=== PATIENT | male | born 1935 | race Caucasian/White ===

== ENCOUNTER → 2017-10-08 | Outpatient (CLI) | payer MEDICARE ==
[2017-10-08 12:26] LABS: Anion Gap 10 mmol/L; Blood Urea Nitrogen 20 mg/dL (9-20); Carbon Dioxide 28 mmol/L (22-30); Chloride 102 mmol/L (98-107); Potassium 4.5 mmol/L (3.5-5.1); Sodium 140 mmol/L (137-145)
[2017-10-08 12:46] LABS: HCT 43.4 % (39.0-53.0); HGB 13.8 gm/dL (13.0-17.5); Hypochromasia Slight; MCH 28.1 pg (25.0-35.0); MCHC 31.7 g/dL (31.0-37.0); MCV 88.4 fL (80.0-100.0); Mean Platelet Volume 8.1; Platelet Count 164 k/uL (150-450); RDW 14.6 % (11.5-15.5); WBC 7.3 k/uL (3.8-10.6)
== END | disposition home or self-care (01) ==
LOC: LABWHC1 11:32
PROVIDERS: ATTEND Internal Medicine Interventional Cardiology
DX: Z01.812 Encounter for preprocedural laboratory examination (principal); I35.0 Nonrheumatic aortic (valve) stenosis
CPT/HCPCS: 36415; 80051; 82565; 84520; 85027

== ENCOUNTER 2017-10-24 07:56 | Day surgery (SDC) | payer MEDICARE ==
[2017-10-19 09:31] VITALS: BMI 27.7
[~2017-10-24 07:56] MED LIST: ALPRAZolam 0.25 MG TAB PO PRN; ALPRAZolam 0.5 MG TAB PO PRN; ASPIRIN 325 MG TAB PO STA; NITROGLYCERIN SL TABS 0.4 MG TAB SUBLINGUAL PRN; SODIUM CHLORIDE 0.9% 1,000 ML in EMPTY BAG 1 BAG IV ONE
[2017-10-24 08:16] VITALS: PULSE 63; TEMP 97.7
[2017-10-24 08:41] LABS: INR 1.2 (<1.2); Prothrombin Time 11.4 sec (9.0-12.0)
[2017-10-24] MEDS: fentaNYL (PF) 50 MCG/ML 2 ML AMP IVP ONE ×2 (09:18→09:22)
[2017-10-24] MEDS ORDERED: SODIUM CHLORIDE 0.9% 1,000 ML IV ONE (09:18)
[2017-10-24] MEDS ORDERED: LIDOCAINE 2% INJ 20 MG/ML SQ ONE (09:21)
[2017-10-24] MEDS ORDERED: IOHEXOL 350 MG/ML 125ML BOTTLE INJ ONE (09:48)
[2017-10-24] MEDS ORDERED: RX INFO: IV CONTRAST WAS GIVEN 1 EACH MISC MISCELLANE PRN (09:54)
[2017-10-24] MEDS ORDERED: SODIUM CHLORIDE 0.9% 1,000 ML IV SCH (10:00)
--- NOTE | 2017-10-24 10:03 | P.PCN ---
Date of Procedure: 10/24/17 Preoperative Diagnosis: Severe aortic stenosis, coronary artery disease Postoperative Diagnosis: Severe aortic stenosis with a peak gradient of 56, stable coronary artery disease with noncritical stenosis in the proximal LAD of about 40% Procedure(s) Performed: Left heart catheterization with selective coronary arteriography. No ventriculography Description of Procedure: HISTORY: This is a 82-year-old gentleman with history of aortic stenosis of moderate severity and also noncritical coronary artery disease was recently evaluated by [facility] and was found to have evidence of severe aortic stenosis. Left heart catheterization was requested to assess coronary artery disease. CONSENT:I have discussed the risks, benefits and alternative therapies for the above-mentioned procedure and for both sedation/analgesia as well as necessary blood product administration, if indicated, as they pertain to this patient. The patient has indicated understanding and acceptance of the risks and procedures discussed. PROCEDURE: Patient was brought to the lab in a fasting state. Patient was given some IV sedation. The right groin is infiltrated with lidocaine and right femoral artery was entered using Seldinger technique. A 6-Albanian catheter was left in place and selective coronary arteriography was performed. Patient tolerated the procedure well. Femoral angiogram was performed and Angio-Seal was applied for hemostasis. No immediate complications were noted and patient was transferred to [facility] in a stable condition Conscious Sedation: Versed 0 mg Fentanyl 37.5 g Duration 25 minutes HEMODYNAMICS: Aortic pressure is about 170/70. Aortic pressure is about 110 systolic. The gradient was about 56. End-diastolic pressure is about 5-10 SELECTIVE CORONARY ARTERIOGRAPHY: LEFT MAIN: Normal length and patent THE LEFT ANTERIOR DESCENDING CORONARY ARTERY:. His is a good caliber vessel which shows calcification in the proximal portion including left main. Then eccentric 30-40% stenosis involving the proximal LAD before the origin of the septal branch. The rest of the LAD and branches are free of occlusive disease THE LEFT CIRCUMFLEX AND IS CORONARY ARTERY:. This is a fair caliber vessel giving rise to good-sized OM branch. The circumflex and branches are free of occlusive disease THE RIGHT CORONARY ARTERY: It is a dominant vessel giving rise good-sized PDA and PLV. Free of any occlusive disease. LEFT VENTRICULOGRAPHY: Not performed FINAL IMPRESSION:. #1. Severe aortic stenosis. #2. Stable noncritical coronary artery disease with 30-40% calcified lesion in the proximal LAD PLAN: Aortic wall replacement PROGNOSIS: Fair
[2017-10-24 15:17] VITALS: BP 114/60; RESP 18
== END 2017-10-24 15:00 | disposition home or self-care (01) ==
LOC: CATHCVL 07:56
PROVIDERS: ATTEND Internal Medicine Cardiovascular Disease
DX: I35.0 Nonrheumatic aortic (valve) stenosis (principal); I25.10 Atherosclerotic heart disease of native coronary artery without angina pectoris; I25.84 Coronary atherosclerosis due to calcified coronary lesion; Z87.891 Personal history of nicotine dependence; I10 Essential (primary) hypertension; I48.2 Chronic atrial fibrillation; Z79.01 Long term (current) use of anticoagulants; Z86.718 Personal history of other venous thrombosis and embolism; E78.5 Hyperlipidemia, unspecified; Z79.899 Other long term (current) drug therapy
CPT/HCPCS: 93458; 85610; C1760; C1769 ×3; C1894; J2001; J3010; Q9967

== ENCOUNTER → 2018-01-08 | Outpatient (CLI) | payer MEDICARE ==
[2018-01-08 10:43] LABS: INR 1.6 (<1.2); Prothrombin Time 14.6 sec (9.0-12.0)
== END | disposition home or self-care (01) ==
LOC: LABWHC1 10:00
PROVIDERS: ATTEND Dentist Oral and Maxillofacial Surgery
DX: D68.9 Coagulation defect, unspecified (principal)
CPT/HCPCS: 36415; 85610

== ENCOUNTER 2018-04-08 06:18 | Day surgery (SDC) | payer MEDICARE ==
[2018-04-04 09:10] VITALS: BMI 27.7
[2018-04-08] MEDS ORDERED: ASPIRIN 325 MG TAB PO STA (06:25)
[2018-04-08] MEDS ORDERED: ATORVASTATIN 80 MG TAB PO STA (06:25)
[2018-04-08] MEDS ORDERED: ALPRAZolam 0.5 MG TAB PO PRN (06:25)
[2018-04-08] MEDS ORDERED: NITROGLYCERIN SL TABS 0.4 MG TAB SUBLINGUAL PRN (06:25)
[2018-04-08] MEDS ORDERED: SODIUM CHLORIDE 0.9% 1,000 ML in EMPTY BAG 1 BAG IV ONE (06:25)
[2018-04-08] MEDS ORDERED: ALPRAZolam 0.25 MG TAB PO PRN (06:25)
[2018-04-08 07:22] LABS: Basophils % (A) 0 %; Eosinophils # (A) 0.1 k/uL (0-0.7); Eosinophils % (A) 1 %; HCT 41.3 % (39.0-53.0); HGB 13.6 gm/dL (13.0-17.5); Lymphocytes # (A) 0.8 k/uL (1.0-4.8); Lymphocytes % (A) 16 %; MCHC 32.9 g/dL (31.0-37.0); MCV 85.2 fL (80.0-100.0); Mean Platelet Volume 7.7; Monocytes # (A) 0.3 k/uL (0-1.0); Monocytes % (A) 6 %; Neutrophils # (A) 3.5 k/uL (1.3-7.7); Neutrophils % (A) 76 %; Platelet Count 125 k/uL (150-450); RBC 4.85 m/uL (4.30-5.90); RDW 13.8 % (11.5-15.5); WBC 4.6 k/uL (3.8-10.6)
[2018-04-08 07:33] LABS: INR 1.7 (<1.2); Prothrombin Time 15.6 sec (9.0-12.0)
[2018-04-08 07:44] LABS: Anion Gap 11 mmol/L; Blood Urea Nitrogen 18 mg/dL (9-20); Carbon Dioxide 27 mmol/L (22-30); Chloride 103 mmol/L (98-107); Glucose 105 mg/dL (74-99); Sodium 141 mmol/L (137-145)
[2018-04-08] MEDS ORDERED: MIDAZOLAM 2 MG/2 ML VIAL IV ONE (07:45)
[2018-04-08] MEDS ORDERED: LIDOCAINE 1% INJ 10MG/ML (20 ML MDV) SQ ONE (07:46)
[2018-04-08] MEDS ORDERED: BIVALIRUDIN BOLUS 250 MG/50 ML IV ONE (07:50)
[2018-04-08] MEDS ORDERED: BIVALIRUDIN 250 MG in SODIUM CHLORIDE 0.9% 50 ML IV ONE (07:51)
[2018-04-08] MEDS ORDERED: ADENOSINE 90 MG in SODIUM CHLORIDE 0.9% 60 ML IVP ONE (08:03)
[2018-04-08] MEDS ORDERED: RX INFO: IV CONTRAST WAS GIVEN 1 EACH MISC MISCELLANE PRN (08:08)
[2018-04-08] MEDS ORDERED: IOPAMIDOL-370 125ML BTL INJ ONE (08:09)
[2018-04-08] MEDS ORDERED: SODIUM CHLORIDE 0.9% 1,000 ML IV SCH (08:15)
--- NOTE | 2018-04-08 08:24 | CC ---
CARDIAC CATHETERIZATION REPORT DATE OF SERVICE: 04/08/2018 PERFORMING PHYSICIAN: Sumanth Garcia MD, Syrup Maker Cook. PROCEDURE PERFORMED: Fractional flow reserve of the LAD. INDICATION: This is a pleasant 82-year-old gentleman who sees Dr. Banks as an outpatient who was diagnosed recently with symptomatic severe aortic stenosis as well as moderate mitral regurgitation. The patient is going to have aortic valve replacement. He is known to have intermediate to severe disease involving the proximal LAD and he was brought today to undergo an FFR of the LAD. APPROACH: Right common femoral artery. COMPLICATION: None. LEVEL OF SEDATION: Moderate sedation length of 21 minutes. PROCEDURE DESCRIPTION: After obtaining an informed consent, the patient was brought to the cardiac laboratory assistant. The right common femoral artery was cannulated using micropuncture technique, the micropuncture wire passed easily, then I placed a 6-Slovak sheath in the right common femoral artery. Subsequently I did start anticoagulation using Angiomax. After zeroing the Doppler wire and equalizing between the Doppler wire and the guiding catheter, which was JL4 guiding catheter, we did FFR per IV adenosine infusion and the FFR came in to be 0.87 which is nonischemic. CONCLUSION: Fractional flow reserve of the left anterior descending artery was performed and came in to be 0.87 which is nonischemic. POSTPROCEDURE MANAGEMENT: The patient needs to have aortic valve replacement with or without mitral valve repair without coronary artery bypass grafting. MMODL / IJN: [id number] /
[2018-04-08 09:54] VITALS: RESP 16; TEMP 97.9
[2018-04-08 12:41] VITALS: BP 123/59; PULSE 54
== END 2018-04-08 15:40 | disposition home or self-care (01) ==
LOC: CATHCVL 06:18 → 3OBS 08:30 → CATHCVL 15:40
PROVIDERS: ATTEND Internal Medicine Interventional Cardiology
DX: I08.0 Rheumatic disorders of both mitral and aortic valves (principal); I48.2 Chronic atrial fibrillation; I10 Essential (primary) hypertension; I48.92 Unspecified atrial flutter; R00.1 Bradycardia, unspecified; E78.5 Hyperlipidemia, unspecified; I25.10 Atherosclerotic heart disease of native coronary artery without angina pectoris; Z86.718 Personal history of other venous thrombosis and embolism; Z79.01 Long term (current) use of anticoagulants; Z79.899 Other long term (current) drug therapy; Z87.891 Personal history of nicotine dependence
CPT/HCPCS: 93571; 93454; 80048; 85025; 85610; C1760; C1887 ×2; C1894; C1769 ×2; J2250; J2001; J0583; J0153; Q9967

== ENCOUNTER → 2018-05-07 | Outpatient (CLI) | payer MEDICARE ==
[2018-05-07 10:14] LABS: HGB 13.2 gm/dL (13.0-17.5); MCH 27.9 pg (25.0-35.0); MCHC 32.2 g/dL (31.0-37.0); MCV 86.7 fL (80.0-100.0); Mean Platelet Volume 7.2; Platelet Count 133 k/uL (150-450); RBC 4.72 m/uL (4.30-5.90); RDW 14.2 % (11.5-15.5); WBC 6.1 k/uL (3.8-10.6)
[2018-05-07 10:19] LABS: INR 3.4 (<1.2); Partial Thromboplastin Time 34.1 sec (22.0-30.0); Prothrombin Time 30.5 sec (9.0-12.0)
[2018-05-07 10:49] LABS: ALT 27 U/L (21-72); AST 21 U/L (17-59); Alkaline Phosphatase 53 U/L (38-126); Anion Gap 7 mmol/L; Blood Urea Nitrogen 20 mg/dL (9-20); Calcium 9.1 mg/dL (8.4-10.2); Carbon Dioxide 27 mmol/L (22-30); Chloride 107 mmol/L (98-107); Cholesterol 110 mg/dL (<200); Glucose 95 mg/dL (74-99); HDL Cholesterol 54 mg/dL (40-60); LDL Cholesterol,Calculated 35 mg/dL (0-99); Potassium 4.2 mmol/L (3.5-5.1); Sodium 141 mmol/L (137-145); Total Bilirubin 0.6 mg/dL (0.2-1.3); Total Protein 6.4 g/dL (6.3-8.2); Triglycerides 103 mg/dL (<150)
[2018-05-07 10:50] LABS: Appearance,Urine Clear (Clear); Bilirubin,Urine Negative (Negative); Blood,Urine Trace (Negative); Color,Urine Yellow; Glucose,Urine (UA) Negative (Negative); Ketones,Urine Negative (Negative); Leukocyte Esterase,Urine Negative (Negative); Mucus,Urine Rare /hpf; Nitrite,Urine Negative (Negative); Protein,Urine Negative (Negative); RBC,Urine 8 /hpf (0-5); Specific Gravity,Urine 1.016 (1.001-1.035); Squamous Epithelial Cell,Urine <1 /hpf (0-4); WBC,Urine 1 /hpf (0-5)
--- NOTE | 2018-05-07 13:01 | XR ---
EXAMINATION TYPE: XR chest 2V DATE OF EXAM: 05/07/2018 COMPARISON: Prior chest 09/22/2014 HISTORY: Preop cardiac surgery TECHNIQUE: Frontal and lateral views of the chest are obtained. FINDINGS: There may be a spinal curvature. Inferior vena cava filter shows the central aspect of the filter at approximately L1, stable. Heart is enlarged. There is no evident airspace disease, pneumot horax. Pulmonary vascularity and cecile are within normal limits. Some minimal blunting of the posterio r costophrenic angles noted. IMPRESSION: Cardiomegaly, difficult to exclude small effusions. Additional findings above.
--- NOTE | 2018-05-07 17:55 | ECHOF ---
Referral Reason:Z01.818 pre op MEASUREMENTS -------- HEIGHT: 185.4 cm WEIGHT: 95.3 kg BP: 185/83 RVIDd: 3.6 cm (< 3.3) IVSd: 1.4 cm (0.6 - 1.1) LVIDd: 4.4 cm (3.9 - 5.3) LVPWd: 1.4 cm (0.6 - 1.1) IVSs: 1.7 cm LVIDs: 3.6 cm LVPWs: 1.5 cm LA Diam: 4.3 cm (2.7 - 3.8) LAESV Index (A-L): 60.13 ml/m Ao Diam: 3.6 cm (2.0 - 3.7) EPSS: 1.2 cm AV maxP.40 mmHg AV meanP.09 mmHg AR PHT: 820 ms RAP: 5.00 mmHg RVSP: 48.12 mmHg MV EF SLOPE: 53.71 mm/s (70 - 150) MV EXCURSION: 1.47 cm (> 18.000) FINDINGS -------- 3Atrial fibrillation. This was a technically good study. The left ventricular size is normal. There is moderate concentric left ventricular hypertrophy. O verall left ventricular systolic function is mild-moderately impaired with, an EF between 40 - 45 %. The right ventricle is mildly enlarged. LA is severely dilated >40 ml/m2 The right atrium is normal in size. There is severe aortic valve sclerosis. There is mild aortic regurgitation. There is severe aorti c stenosis present. Peak/mean gradient across the Aortic Valve is 111.40mmHg / 73.09mmHg. The mitral valve leaflets are mildly thickened. Mild mitral annular calcification present. Modera te mitral regurgitation is present. Mild tricuspid regurgitation present. There is moderate pulmonary hypertension. The right ventric ular systolic pressure, as measured by Doppler, is 48.12mmHg. Trace/mild (physiologic) pulmonic regurgitation. The aortic root size is normal. IVC Not well visulized. There is a small pericardial effusion located near the left ventricle. CONCLUSIONS -------- 1. Atrial fibrillation. 2. This was a technically good study. 3. The left ventricular size is normal. 4. There is moderate concentric left ventricular hypertrophy. 5. Overall left ventricular systolic function is mild-moderately impaired with, an EF between 40 - 45 %. 6. The right ventricle is mildly enlarged. 7. LA is severely dilated >40 ml/m2 8. The right atrium is normal in size. 9. There is severe aortic valve sclerosis. 10. There is mild aortic regurgitation. 11. There is severe aortic stenosis present. 12. Peak/mean gradient across the Aortic Valve is 111.40mmHg / 73.09mmHg. 13. The mitral valve leaflets are mildly thickened. 14. Mild mitral annular calcification present. 15. Moderate mitral regurgitation is present. 16. Mild tricuspid regurgitation present. 17. There is moderate pulmonary hypertension. 18. The right ventricular systolic pressure, as measured by Doppler, is 48.12mmHg. 19. Trace/mild (physiologic) pulmonic regurgitation. 20. The aortic root size is normal. 21. IVC Not well visulized. 22. There is a small pericardial effusion located near the left ventricle. RESEARCH ARCHAEOLOGIST: ALISON Kebede
[2018-05-08 11:02] LABS: Magnesium 1.7 mg/dL (1.6-2.3)
[2018-05-08 17:51] LABS: Hemoglobin A1C 5.9 % (4.0-6.0)
[2018-05-08 19:09] LABS: Hepatitis A Antibody IgM Non-Reactive (Non-Reactive); Hepatitis B Core IgM Non-Reactive (Non-Reactive)
== END | disposition home or self-care (01) ==
LOC: LABWHC1 09:18
PROVIDERS: ATTEND Surgery
DX: Z01.818 Encounter for other preprocedural examination (principal); I51.7 Cardiomegaly
CPT/HCPCS: 36415; 71046; 80053; 80061; 80074; 81001; 83036; 83735; 84443; 85027; 85610; 85730; 87086; 93005; 93306; 93970; 94150

== ENCOUNTER 2018-05-14 05:43 | Inpatient (IN) | payer MEDICARE ==
[~2018-05-14 05:43] MED LIST changes: +ALBUMIN HUMAN 25% 50 ML IV ONE; +ALBUMIN HUMAN 5% 500 ML IVPB ONE; -ALPRAZolam 0.25 MG TAB PO PRN; -ALPRAZolam 0.5 MG TAB PO PRN; +ASPIRIN 325 MG TAB PO ONE; -ASPIRIN 325 MG TAB PO STA; +ATORVASTATIN 10 MG TAB PO ONE; +CALCIUM CHLORIDE 100 MG/ML 10 ML SYRINGE IV ONE; +CHLORHEXIDINE GLUCONATE 15 ML CUP MUCOUS MEM ONE; +CLEVIDIPINE BUTYRATE 25 MG in EMPTY BAG 1 BAG IV ONE; +DEXTROSE 5% IN WATER 1,000 ML with POTASSIUM CHLORIDE 110 MEQ, MAGNESIUM SULFATE 16 MEQ... IV ONE; +DEXTROSE 5% IN WATER 1,000 ML with POTASSIUM CHLORIDE 25 MEQ, SODIUM CHLORIDE 2.5MEQ/ML... IV ONE; +HEPARIN SODIUM 1,000 UN/ML (10ML VL) IV ONE; +HEPARIN SODIUM,PORCINE 5,000 UNIT in SODIUM CHLORIDE 0.9% 500 ML IV ONE; +INSULIN REGULAR 100 UNIT in SODIUM CHLORIDE 0.9% 100 ML IV ONE; +LACTATED RINGERS 1,000 ML IV ONE; +MAGNESIUM SULFATE MG 500 MG/ML VIAL IV ONE; +MANNITOL 25% 12.5 GM/50 ML VIAL IV ONE; +METOPROLOL TARTRATE 12.5 MG TAB PO ONE; +MUPIROCIN 2% OINT 22 GM TUBE NASAL ONE; -NITROGLYCERIN SL TABS 0.4 MG TAB SUBLINGUAL PRN; +NITROGLYCERIN-D5W PMX 25 MG/250 ML BTL IV ONE; +NITROGLYCERIN-D5W PMX 50 MG in DEXTROSE/WATER 1 250ML.BAG IV ONE; +NOREPINEPHRIN 4 MG-0.9% NS PMX 4 MG/250 ML ML IV ONE; +PHENYLEPHRINE 40 MG in SODIUM CHLORIDE 0.9% 250 ML IV ONE; +PHENYLEPHRINE-0.9% NACL SYG 1 MG/10 ML SYRINGE IV ONE; +PROPOFOL 1,000 MG/100 ML VIAL IV ONE; +PROTAMINE SULFATE 10 MG/ML 25 ML VIAL IV ONE; +PROTAMINE SULFATE 250 MG in EMPTY BAG 1 BAG IV ONE; +SODIUM BICARB 8.4% 50 ML SYR (1 MEQ/ML) IV ONE; +SODIUM CHLORIDE 0.9% 1,000 ML IV ONE; -SODIUM CHLORIDE 0.9% 1,000 ML in EMPTY BAG 1 BAG IV ONE; +TRANEXAMIC ACID 2,000 MG in SODIUM CHLORIDE 0.9% 180 ML IV ONE; +ceFAZolin 1,000 MG in SODIUM CHLORIDE 0.9% IRRIGATIO 1,000 ML IRRIGATION ONE; +ceFAZolin 2,000 MG in SODIUM CHLORIDE 0.9% 30 ML IVPB ONE; +ceFAZolin IN SWFI 2 GM/20 ML SYRINGE IVP ONE
[2018-05-14] MEDS ORDERED: ceFAZolin 2,000 MG in SODIUM CHLORIDE 0.9% 30 ML IVPB ONE (06:00)
[2018-05-14] MEDS ORDERED: TRANEXAMIC ACID 1,000 MG/10 ML VIAL ONE (08:15)
[2018-05-14] MEDS ORDERED: HEPARIN SODIUM,PORCINE 10,000 UNIT/ML 1 ML VIAL ONE (08:15)
[2018-05-14] MEDS ORDERED: ELECTROLYTE-R (PH 7.4) 1,000 ML IV.SOLN IV ONE (08:15)
[2018-05-14] MEDS ORDERED: VECURONIUM 10 MG VIAL IV ONE (08:15)
[2018-05-14] MEDS ORDERED: MIDAZOLAM 2 MG/2 ML VIAL ONE (08:15)
[2018-05-14] MEDS ORDERED: MAGNESIUM SULFATE 4 MEQ/ML 2 ML VIAL ONE (08:15)
[2018-05-14] MEDS ORDERED: PROPOFOL 10 MG/ML 20 ML VIAL IV ONE (08:15)
[2018-05-14] MEDS ORDERED: GLYCOPYRROLATE 0.2 MG/ML 2 ML VIAL ONE (08:15)
[2018-05-14] MEDS ORDERED: fentaNYL (PF) 50 MCG/ML 2 ML AMP ONE (08:15)
[2018-05-14] MEDS ORDERED: SODIUM CHLORIDE 0.9% IRRIG 1,000 ML BTL IRRIGATION ONE (08:15)
[2018-05-14] MEDS ORDERED: PROTAMINE SULFATE 10 MG/ML 25 ML VIAL IV ONE (08:15)
[2018-05-14] MEDS ORDERED: LIDOCAINE 2% SYG (PF) 100 MG/5 ML ONE (08:15)
[2018-05-14] MEDS ORDERED: ALBUMIN HUMAN 5% 500 ML VIAL IVPB ONE (08:15)
[2018-05-14] MEDS ORDERED: fentaNYL (PF) 50 MCG/ML 50 ML VIAL ONE (08:15)
[2018-05-14] MEDS ORDERED: PHENYLEPHRINE-0.9% NACL SYG 1 MG/10 ML SYRINGE ONE (08:15)
[2018-05-14] MEDS ORDERED: ePHEDrine SULFATE/0.9% NACL/PF 50 MG/5 ML SYRINGE IV ONE (08:15)
[2018-05-14] MEDS ORDERED: SODIUM CHLORIDE 0.9% 250 ML BAG ONE (08:15)
[2018-05-14 08:50] LABS: ABG Base Excess 0.7 mmol/L; ABG HCO3 25 mmol/L (21-25); ABG PCO2 38 mmHg (35-45); ABG PH 7.43 (7.35-7.45); ABG PO2 409 mmHg (83-108); ABG Sodium Whole Blood 140 mmol/L (135-146); ABG TCO2 26 mmol/L (19-24)
[2018-05-14] MEDS ORDERED: SODIUM CHLORIDE 0.9% 500 ML with HEPARIN SODIUM,PORCINE 5,000 UNIT IV ONE ×2 (09:23)
[2018-05-14] MEDS ORDERED: ceFAZolin 1,000 MG in SODIUM CHLORIDE 0.9% 1,000 ML IRRIGATION ONE (09:23)
[2018-05-14 09:32] LABS: Basophils % (A) 0 %; Eosinophils # (A) 0.1 k/uL (0-0.7); Eosinophils % (A) 1 %; HCT 39.5 % (39.0-53.0); HGB 12.9 gm/dL (13.0-17.5); INR 1.3 (<1.2); Lymphocytes # (A) 0.8 k/uL (1.0-4.8); Lymphocytes % (A) 16 %; MCH 27.9 pg (25.0-35.0); MCHC 32.6 g/dL (31.0-37.0); MCV 85.6 fL (80.0-100.0); Mean Platelet Volume 7.4; Monocytes # (A) 0.3 k/uL (0-1.0); Monocytes % (A) 5 %; Neutrophils % (A) 77 %; Partial Thromboplastin Time 26.5 sec (22.0-30.0); Platelet Count 141 k/uL (150-450); Prothrombin Time 12.7 sec (9.0-12.0); RBC 4.61 m/uL (4.30-5.90); RDW 14.1 % (11.5-15.5); WBC 5.2 k/uL (3.8-10.6)
[2018-05-14 09:51] LABS: ABG Base Excess 0.4 mmol/L; ABG HCO3 26 mmol/L (21-25); ABG Oxygen Saturation 99.6 % (94-97); ABG PCO2 46 mmHg (35-45); ABG PH 7.36 (7.35-7.45); ABG PO2 189 mmHg (83-108); ABG Potassium Whole Blood 3.7 mmol/L (3.4-4.5); ABG Sodium Whole Blood 140 mmol/L (135-146); ABG TCO2 28 mmol/L (19-24)
[2018-05-14 10:38] LABS: ABG HCO3 25 mmol/L (21-25); ABG Oxygen Saturation 99.9 % (94-97); ABG PCO2 42 mmHg (35-45); ABG PH 7.39 (7.35-7.45); ABG PO2 259 mmHg (83-108); ABG Potassium Whole Blood 4.4 mmol/L (3.4-4.5); ABG Sodium Whole Blood 138 mmol/L (135-146); ABG TCO2 26 mmol/L (19-24)
[2018-05-14 11:08] LABS: ABG Base Excess -0.8 mmol/L; ABG HCO3 25 mmol/L (21-25); ABG Oxygen Saturation 99.7 % (94-97); ABG PCO2 47 mmHg (35-45); ABG PH 7.34 (7.35-7.45); ABG PO2 248 mmHg (83-108); ABG Potassium Whole Blood 4.9 mmol/L (3.4-4.5); ABG Sodium Whole Blood 136 mmol/L (135-146); ABG TCO2 27 mmol/L (19-24)
[2018-05-14 11:48] LABS: ABG Base Excess -2.2 mmol/L; ABG HCO3 23 mmol/L (21-25); ABG PCO2 38 mmHg (35-45); ABG PH 7.39 (7.35-7.45); ABG PO2 407 mmHg (83-108); ABG Potassium Whole Blood 4.7 mmol/L (3.4-4.5); ABG Sodium Whole Blood 137 mmol/L (135-146); ABG TCO2 24 mmol/L (19-24)
[2018-05-14 13:33] LABS: ABG Base Excess -1.4 mmol/L; ABG HCO3 24 mmol/L (21-25); ABG Oxygen Saturation 99.2 % (94-97); ABG PCO2 42 mmHg (35-45); ABG PH 7.36 (7.35-7.45); ABG PO2 153 mmHg (83-108); ABG Potassium Whole Blood 3.9 mmol/L (3.4-4.5); ABG Sodium Whole Blood 140 mmol/L (135-146); ABG TCO2 25 mmol/L (19-24)
[2018-05-14] MEDS ORDERED: MORPHINE SULFATE 2 MG/ML SYRINGE IVP PRN (13:45)
[2018-05-14] MEDS ORDERED: ONDANSETRON 4 MG/2 ML VIAL IVP PRN (13:45)
[2018-05-14] MEDS ORDERED: CALCIUM CHLORIDE 1,000 MG in SODIUM CHLORIDE 0.9% 100 ML IV PRN (13:45)
[2018-05-14] MEDS ORDERED: Magnesium Replacement Protocol 1 EACH MISC MISCELLANE PRN (13:45)
[2018-05-14] MEDS ORDERED: BENZOCAINE/MENTHOL LOZENG 1 EACH LOZENGE MUCOUS MEM PRN (13:45)
[2018-05-14] MEDS ORDERED: PROPOFOL 1,000 MG in EMPTY BAG 1 BAG IV SCH (13:45)
[2018-05-14] MEDS ORDERED: METOCLOPRAMIDE 5 MG/ML 2 ML VIAL IVP PRN (13:45)
[2018-05-14] MEDS ORDERED: IPRATROPIUM-ALBUTEROL 3 ML NEB INHALATION PRN (13:45)
[2018-05-14] MEDS ORDERED: Potassium Replacement Protocol 1 EACH MISC MISCELLANE PRN (13:45)
[2018-05-14] MEDS ORDERED: Phosphorus Replacement Protoco 1 EACH MISC MISCELLANE PRN (13:45)
[2018-05-14 13:51] LABS: Basophils % (A) 0 %; Eosinophils % (A) 1 %; HCT 26.7 % (39.0-53.0); Lymphocytes # (A) 0.3 k/uL (1.0-4.8); Lymphocytes % (A) 5 %; MCH 28.2 pg (25.0-35.0); MCHC 32.7 g/dL (31.0-37.0); MCV 86.2 fL (80.0-100.0); Mean Platelet Volume 7.6; Monocytes # (A) 0.2 k/uL (0-1.0); Monocytes % (A) 3 %; Neutrophils # (A) 5.9 k/uL (1.3-7.7); Neutrophils % (A) 91 %; Platelet Count 103 k/uL (150-450); RDW 14.1 % (11.5-15.5); WBC 6.5 k/uL (3.8-10.6)
[2018-05-14 14:03] LABS: HGB 8.7 gm/dL (13.0-17.5)
[2018-05-14] MEDS ORDERED: INSULIN REGULAR 100 UNIT in SODIUM CHLORIDE 0.9% 100 ML IV SCH (14:15)
[2018-05-14 14:26] LABS: INR 1.5 (<1.2); Partial Thromboplastin Time 27.6 sec (22.0-30.0); Prothrombin Time 14.1 sec (9.0-12.0)
[2018-05-14 14:26] LABS: Glucose,Whole Blood 115 mg/dL (75-99)
[2018-05-14] MEDS: LACTATED RINGERS 1,000 ML IV SCH (14:31)
[2018-05-14 14:43] LABS: Ionized Calcium 4.9 mg/dL (4.5-5.3)
[2018-05-14 14:45] LABS: INR 1.5 (<1.2); Partial Thromboplastin Time 27.6 sec (22.0-30.0); Prothrombin Time 13.9 sec (9.0-12.0)
[2018-05-14 14:49] LABS: Basophils % (A) 0 %; Eosinophils % (A) 1 %; HCT 27.1 % (39.0-53.0); HGB 9.2 gm/dL (13.0-17.5); Lymphocytes # (A) 0.5 k/uL (1.0-4.8); Lymphocytes % (A) 8 %; MCHC 33.8 g/dL (31.0-37.0); Mean Platelet Volume 7.5; Monocytes # (A) 0.3 k/uL (0-1.0); Monocytes % (A) 6 %; Neutrophils % (A) 85 %; RBC 3.16 m/uL (4.30-5.90); RDW 14.1 % (11.5-15.5); WBC 5.9 k/uL (3.8-10.6)
--- NOTE | 2018-05-14 14:49 | XR ---
EXAMINATION TYPE: XR chest 1V portable DATE OF EXAM: 05/14/2018 COMPARISON: 05/07/2018 HISTORY: Post open heart TECHNIQUE: Single frontal view of the chest is obtained. FINDINGS: There is bilateral consolidation and pleural effusion greater on the left. Peck-Kavon catheter seen with the tip overlying the proximal pulmonary outflow tract. Postsurgical changes seen. ET tube 2.7 cm above the lashay. NG tube seen with the tip near the GE junction. Suggestion of mediastinal drain. Arthropathy of the shoulders noted. Hypertrophic change of the spine . Heart is enlarged. IMPRESSION: 1. Postsurgical changes with bilateral consolidation and pleural effusion as discussed above.
[2018-05-14 14:55] LABS: ALT 27 U/L (21-72); AST 25 U/L (17-59); Albumin 2.9 g/dL (3.5-5.0); Alkaline Phosphatase 26 U/L (38-126); Anion Gap 5 mmol/L; Blood Urea Nitrogen 14 mg/dL (9-20); Calcium 8.3 mg/dL (8.4-10.2); Carbon Dioxide 25 mmol/L (22-30); Chloride 110 mmol/L (98-107); Glucose 105 mg/dL (74-99); Potassium 4.2 mmol/L (3.5-5.1); Sodium 140 mmol/L (137-145); Total Bilirubin 0.9 mg/dL (0.2-1.3); Total Protein 4.5 g/dL (6.3-8.2)
[2018-05-14] MEDS: CLEVIDIPINE BUTYRATE 25 MG in EMPTY BAG 1 BAG IV SCH (14:55)
[2018-05-14 15:04] LABS: ABG Base Excess -0.9 mmol/L; ABG HCO3 25 mmol/L (21-25); ABG Oxygen Saturation 98.8 % (94-97); ABG PCO2 45 mmHg (35-45); ABG PH 7.35 (7.35-7.45); ABG PO2 117 mmHg (83-108); ABG TCO2 26 mmol/L (19-24)
[2018-05-14 15:12] LABS: Glucose,Whole Blood 125 mg/dL (75-99)
[2018-05-14 15:26] LABS: Platelet Count 85 k/uL (150-450); Polychromasia Present
[2018-05-14] MEDS: ceFAZolin IN SWFI 2 GM/20 ML SYRINGE IVP SCH ×2 (15:56→23:12)
[2018-05-14] MEDS ORDERED: IPRATROPIUM-ALBUTEROL 3 ML NEB INHALATION SCH (16:00)
[2018-05-14 16:06] LABS: Glucose,Whole Blood 156 mg/dL (75-99)
--- NOTE | 2018-05-14 16:33 | P.CNPUL ---
History of Present Illness Consult date: 05/14/18 Requesting physician: Oma Lockhart Reason for consult: other Chief complaint: Aortic valve stenosis, severe, status post aortic valve replacement, RAMANDEEP History of present illness: Mr. Weeks is a 83-year-old white male patient of Dr. Alarcon, with known history of severe aortic valve stenosis. Patient was relatively asymptomatic initially , however he started experiencing decreased exercise capacity, and he could not complete a stress test. Patient was also found to have moderate degree of mitral valve regurgitation, and 40% LAD stenosis. Has chronic atrial fibrillation for many years, on chronic anticoagulation in the form of Coumadin. Most recent echocardiogram from 05/07/2018 showed impairment of left ventricular function, with an EF between 40-45%, severe aortic stenosis with peak gradient of 111 mmHg, moderate mitral regurgitation, and moderate pulmonary hypertension with right ventricular systolic pressure of 48 mmHg. Cardiac catheterization from 04/24/2018 showed fractional flow reserve of the left anterior descending to be nonischemic at 0.87. Patient was recommended for intervention for aortic valve stenosis, today wishing the patient following his elective aortic valve replacement with 25 mm bovine bioprosthetic valve, and exclusion of the left atrial appendage with 45 mm Atriclip. Patient is seen in the intensive care, he is sedated, on mechanical ventilator, currently on SIMV mode of ventilation, with a rate of 12, tidal volume 500, FiO2 of 50% and PEEP of 5. Postop blood gases showed pO2 of 153, pCO2 of 42, and pH of 7.36. Chest x-ray is reviewed, and showed bilateral consolidation and pleural effusion on the left. [place]-Kavon, endotracheal tube and NG tube are in appropriate positions. Patient's intrinsic rhythm is bradycardia, patient is being atrially paced at a rate of 64 BPM. Lung sounds are clear, medial sternotomy incision is clean dry and intact, covered with surgical dressing, 2 mediastinal chest tubes are white connected, and there is a 65 mL of sanguinous output in the Pleur-evac. Patient has received a total of 1 L of Cell Saver, 1 L autologous blood, 6 units of platelets, 10 units of cry oh, 2 units of fresh frozen plasma, 3 L of crystalloids, and 1500 of albumin. Immediate postop hemoglobin was 8.7, WBC 6.5, INR is 1.5, sodium is 140, potassium is 4.2, chloride is 110, BUN is 14, creatinine 0.60. Lactated Ringer's is at 50 ML per hour, Diprivan infusing. PA pressures 27/19, CVP is 15, cardiac outputs and cardiac index are 5.1 and 2.4. Review of Systems All systems: negative Constitutional: Denies chills, Denies fever Eyes: denies blurred vision, denies pain Ears, nose, mouth and throat: Denies headache, Denies sore throat Cardiovascular: Denies chest pain, Denies shortness of breath Respiratory: Reports dyspnea, Denies cough Gastrointestinal: Denies abdominal pain, Denies diarrhea, Denies nausea, Denies vomiting Musculoskeletal: Denies myalgias Integumentary: Denies pruritus, Denies rash Neurological: Denies numbness, Denies weakness Psychiatric: Denies anxiety, Denies depression Endocrine: Denies fatigue, Denies weight change Past Medical History Past Medical History: Atrial Fibrillation, Deep Vein Thrombosis (DVT), Hyperlipidemia, Hypertension, Osteoarthritis (OA), Prostate Disorder Additional Past Medical History / Comment(s): Aortic Stenosis; DVT leg 1999; enl. prostate History of Any Multi-Drug Resistant Organisms: None Reported Past Surgical History: Heart Catheterization, Orthopedic Surgery, Prostate Surgery Additional Past Surgical History / Comment(s): Matthew. hip replacement; R Knee replaced; Prostate surg., cataracts removed Past Anesthesia/Blood Transfusion Reactions: No Reported Reaction Smoking Status: Former smoker - Past Family History Mother Family Medical History: No Reported History Medications and Allergies Home Medications Medication Instructions Recorded Confirmed Type Enalapril [Vasotec] 5 mg PO DAILY 09/22/14 05/14/18 History Hydrochlorothiazide [Hydrodiuril] 12.5 mg PO DAILY 09/22/14 05/14/18 History Simvastatin [Zocor] 10 mg PO HS 09/22/14 05/14/18 History Warfarin [Coumadin] 2.5 mg PO SUTUWEFRSA 09/22/14 05/14/18 History Warfarin [Coumadin] 3.75 mg PO MOTH 09/22/14 05/14/18 History Methylcellulose (with Sugar) 1 cap PO BID 09/29/14 05/14/18 History [Citrucel] Tamsulosin [Flomax] 0.4 mg PO DAILY #14 cap 09/30/14 05/14/18 Rx Metoprolol Succinate [Toprol XL] 25 mg PO BID 10/10/17 05/14/18 History Finasteride [Proscar] 5 mg PO HS 04/08/18 05/14/18 History Aspirin 325 mg PO DAILY 05/14/18 05/14/18 History Allergies Allergy/AdvReac Type Severity Reaction Status Date / Time No Known Allergies Allergy Verified 05/14/18 14:16 Physical Exam Vitals: Vital Signs Temp Pulse Pulse Resp BP BP BP 05/14/18 15:01 96.3 F L 63 16 126/59 05/14/18 14:40 77 12 05/14/18 14:30 70 11 L 05/14/18 13:45 05/14/18 06:40 149/85 05/14/18 06:10 193/80 128/81 05/14/18 06:02 97.5 F L 69 16 Pulse Ox 05/14/18 15:01 100 05/14/18 14:40 100 05/14/18 14:30 100 05/14/18 13:45 100 05/14/18 06:40 05/14/18 06:10 05/14/18 06:02 95 Intake and Output 05/14/18 05/14/18 05/14/18 06:59 14:59 22:59 Intake Total 618 114 Output Total 3800 Balance -3182 114 Intake: IV 3 Blood Product 615 114 Ffp 24 Cpd Unit 296 [id number] Ffp 24 Cpda Unit 208 [id number] Platelet Pheresis Acda1 0 Unit [id number] Pooled Cryoprecipitate 0 114 Unit [id number] Pooled Cryoprecipitate 111 Unit [id number] Output: Urine 800 Estimated Blood Loss 3000 ABP, PAP, CO, CI - Last 8 Hours Arterial Blood Pressure 129/61 Arterial Blood Pressure 126/62 Pulmonary Artery Pressure 25/18 Pulmonary Artery Pressure 32/24 Cardiac Output 4.6 GENERAL EXAM: Sedated, 83-year-old white male, intubated, on mechanical ventilator HEAD: Normocephalic/atraumatic. EYES: Normal reaction of pupils, equal size. Conjunctiva pink, sclera white. NOSE: Clear with pink turbinates. THROAT: No erythema or exudates. NECK: No masses, no JVD, no thyroid enlargement, no adenopathy. Right IJ [place] and [place] CHEST: No chest wall deformity. Symmetrical expansion. Median sternotomy incisions clean dry and intact, 2 mediastinal chest tubes with sanguinous output , in the Pleur-evac, to wall suction, AV wires to external pacemaker, patient is currently being paced mode of AAI with a rate of 64 BPM LUNGS: Equal air entry with no crackles, wheeze, rhonchi or dullness. CVS: Regular rate and rhythm, normal S1 and S2, no gallops, no murmurs, no rubs ABDOMEN: Soft, nontender. No hepatosplenomegaly, normal bowel sounds, no guarding or rigidity. EXTREMITIES: No clubbing, no edema, no cyanosis, 2+ pulses and upper and lower extremities. MUSCULOSKELETAL: Muscle strength and tone normal. SPINE: No scoliosis or deformity SKIN: No rashes CENTRAL NERVOUS SYSTEM: Sedated No focal deficits, tone is normal in all 4 extremities. PSYCHIATRIC: Unable to assess sedated Results - Laboratory Findings CBC and BMP: 05/14/18 14:26 05/14/18 14:26 ABG ABG pH 7.36 (7.35-7.45) 05/14/18 13:35 ABG pCO2 42 mmHg (35-45) 05/14/18 13:35 ABG pO2 153 mmHg (83-108) H 05/14/18 13:35 ABG O2 Saturation 99.2 % (94-97) H 05/14/18 13:35 PT/INR, D-dimer PT 13.9 sec (9.0-12.0) H 05/14/18 14:26 INR 1.5 (<1.2) H 05/14/18 14:26 Abnormal lab findings: Abnormal Labs 05/07/18 05/14/18 05/14/18 09:20 08:30 08:30 RBC Hgb 12.9 L Hct Plt Count 141 L Lymphocytes # 0.8 L PT 12.7 H INR 1.3 H Fibrinogen ABG pH ABG pCO2 ABG pO2 ABG HCO3 ABG Total CO2 ABG O2 Saturation ABG Hematocrit ABG Potassium ABG Ionized Calcium ABG Glucose ABG Lactic Acid Hemoglobin Chloride Creatinine Glucose POC Glucose (mg/dL) Calcium Alkaline Phosphatase Total Protein Albumin Arterial Blood Potassium Arterial Blood Glucose Crossmatch See Detail 05/14/18 05/14/18 05/14/18 08:52 09:53 10:40 RBC Hgb Hct Plt Count Lymphocytes # PT INR Fibrinogen ABG pH ABG pCO2 46 H ABG pO2 409 H 189 H 259 H ABG HCO3 26 H ABG Total CO2 26 H 28 H 26 H ABG O2 Saturation 100.0 H 99.6 H 99.9 H ABG Hematocrit 28 L ABG Potassium ABG Ionized Calcium 4.4 L ABG Glucose 103 H 114 H 164 H ABG Lactic Acid Hemoglobin 12.7 L 11.7 L 9.1 L Chloride Creatinine Glucose POC Glucose (mg/dL) Calcium Alkaline Phosphatase Total Protein Albumin Arterial Blood Potassium Arterial Blood Glucose 103 H 114 H 164 H Crossmatch 05/14/18 05/14/18 05/14/18 11:10 11:51 13:34 RBC 3.10 L Hgb 8.7 L D Hct 26.7 L Plt Count 103 L Lymphocytes # 0.3 L PT INR Fibrinogen ABG pH 7.34 L ABG pCO2 47 H ABG pO2 248 H 407 H ABG HCO3 ABG Total CO2 27 H ABG O2 Saturation 99.7 H 100.0 H ABG Hematocrit 28 L 31 L ABG Potassium 4.9 H 4.7 H ABG Ionized Calcium 4.4 L 4.3 L ABG Glucose 187 H 166 H ABG Lactic Acid 2.0 H Hemoglobin 9.1 L 10.3 L Chloride Creatinine Glucose POC Glucose (mg/dL) Calcium Alkaline Phosphatase Total Protein Albumin Arterial Blood Potassium 4.9 H 4.7 H Arterial Blood Glucose 187 H 166 H Crossmatch 05/14/18 05/14/18 05/14/18 13:34 13:35 14:25 RBC Hgb Hct Plt Count Lymphocytes # PT 14.1 H INR 1.5 H Fibrinogen 160 L ABG pH ABG pCO2 ABG pO2 153 H ABG HCO3 ABG Total CO2 25 H ABG O2 Saturation 99.2 H ABG Hematocrit 28 L ABG Potassium ABG Ionized Calcium 4.2 L ABG Glucose 125 H ABG Lactic Acid 1.7 H Hemoglobin 9.1 L Chloride Creatinine Glucose POC Glucose (mg/dL) 115 H Calcium Alkaline Phosphatase Total Protein Albumin Arterial Blood Potassium Arterial Blood Glucose 125 H Crossmatch 05/14/18 05/14/18 05/14/18 14:26 14:26 14:26 RBC 3.16 L Hgb 9.2 L Hct 27.1 L Plt Count Lymphocytes # PT 13.9 H INR 1.5 H Fibrinogen ABG pH ABG pCO2 ABG pO2 ABG HCO3 ABG Total CO2 ABG O2 Saturation ABG Hematocrit ABG Potassium ABG Ionized Calcium ABG Glucose ABG Lactic Acid Hemoglobin Chloride 110 H Creatinine 0.60 L Glucose 105 H POC Glucose (mg/dL) Calcium 8.3 L Alkaline Phosphatase 26 L Total Protein 4.5 L Albumin 2.9 L Arterial Blood Potassium Arterial Blood Glucose Crossmatch - Diagnostic Findings Chest x-ray: report reviewed, image reviewed Additional studies: Preop PFT reviewed, preop echocardiogram, EKG, and cardiac catheterization results reviewed Assessment and Plan Plan: Assessment: #1. Severe symptomatic aortic valve stenosis, status post aortic valve replacement with 25 mm bovine bioprosthethis, exclusion of left atrial appendage with 45 mm Atriclip, and intraoperative IOANA/Epiaortic scan, postop day 0 #2. Moderate mitral valve regurgitation #3. Chronic atrial fibrillation, on chronic anticoagulation with Coumadin #4. Routine postoperative ventilator management #5. History of nicotine dependence, currently in remission #6. Blood loss anemia, related to surgery, an expected outcome of surgery #7. Left ventricular systolic function with an EF 40-45%, and moderate degree of pulmonary hypertension #8. History of coronary artery disease, stable #9. Hypertension, hyperlipidemia #10. BPH Plan: Postop chest x-ray has been reviewed, ET tube, PA catheter, NG tube are in appropriate positions. Preop PFTs have been reviewed, and patient has moderate degree of restriction. Post-op blood gases have been reviewed, we'll continue to wean FiO2 per protocol, we'll proceed with spontaneous breathing trials and extubation once the patient is awake. Incentive spirometry to the bedside after extubation, nebulized bronchodilators. Pulmonary toileting, continue close hemodynamic monitoring, monitor chest tube output, urine output, labs, electrolytes, and renal profile. Daily chest x-rays, daily labs. I performed a history & physical examination of the patient and discussed their management with my nurse practitioner, Liza Rubio. I reviewed the nurse practitioner's note and agree with the documented findings and plan of care. Lung sounds are clear diminished the bases. The findings and the impression was discussed with the patient. I attest to the documentation by the nurse practitioner. Time with Patient: Greater than 30
[2018-05-14 17:09] LABS: Glucose,Whole Blood 168 mg/dL (75-99)
[2018-05-14 17:20] LABS: Basophils % (A) 0 %; Eosinophils % (A) 0 %; HCT 30.8 % (39.0-53.0); HGB 10.1 gm/dL (13.0-17.5); Lymphocytes # (A) 0.5 k/uL (1.0-4.8); Lymphocytes % (A) 5 %; MCH 28.3 pg (25.0-35.0); MCHC 32.7 g/dL (31.0-37.0); MCV 86.4 fL (80.0-100.0); Mean Platelet Volume 7.9; Monocytes # (A) 0.5 k/uL (0-1.0); Monocytes % (A) 6 %; Neutrophils # (A) 7.5 k/uL (1.3-7.7); Neutrophils % (A) 88 %; Platelet Count 118 k/uL (150-450); RBC 3.56 m/uL (4.30-5.90); RDW 14.3 % (11.5-15.5); WBC 8.5 k/uL (3.8-10.6)
[2018-05-14] MEDS: ACETAMINOPHEN IV (For NPO) 1,000 MG in EMPTY BAG 1 BAG IVPB SCH ×2 (17:31→23:08)
[2018-05-14 18:03] LABS: Glucose,Whole Blood 172 mg/dL (75-99)
[2018-05-14 18:03] LABS: ABG Base Excess -2.2 mmol/L; ABG HCO3 23 mmol/L (21-25); ABG Oxygen Saturation 97.6 % (94-97); ABG PCO2 41 mmHg (35-45); ABG PH 7.37 (7.35-7.45); ABG PO2 92 mmHg (83-108); ABG TCO2 24 mmol/L (19-24)
[2018-05-14 19:03] LABS: Glucose,Whole Blood 159 mg/dL (75-99)
[2018-05-14] MEDS: IPRATROPIUM-ALBUTEROL 3 ML NEB INHALATION SCH (19:33)
[2018-05-14 20:07] LABS: Glucose,Whole Blood 140 mg/dL (75-99)
[2018-05-14] MEDS: FINASTERIDE 5 MG TAB PO SCH (20:34)
[2018-05-14 20:46] LABS: Basophils % (A) 0 %; Eosinophils % (A) 0 %; HCT 28.7 % (39.0-53.0); HGB 9.5 gm/dL (13.0-17.5); Lymphocytes # (A) 0.2 k/uL (1.0-4.8); Lymphocytes % (A) 3 %; MCH 28.5 pg (25.0-35.0); MCHC 33.1 g/dL (31.0-37.0); MCV 86.2 fL (80.0-100.0); Mean Platelet Volume 8.7; Monocytes # (A) 0.3 k/uL (0-1.0); Monocytes % (A) 5 %; Neutrophils # (A) 6.6 k/uL (1.3-7.7); Neutrophils % (A) 91 %; Platelet Count 105 k/uL (150-450); RBC 3.33 m/uL (4.30-5.90); RDW 14.2 % (11.5-15.5); WBC 7.2 k/uL (3.8-10.6)
[2018-05-14] MEDS: MUPIROCIN 2% OINT 22 GM TUBE NASAL SCH (21:04)
[2018-05-14 21:07] LABS: Glucose,Whole Blood 128 mg/dL (75-99)
[2018-05-14 22:08] LABS: Glucose,Whole Blood 122 mg/dL (75-99)
[2018-05-14 23:07] LABS: Glucose,Whole Blood 124 mg/dL (75-99)
[2018-05-14] MEDS: HEPARIN SODIUM,PORCINE 5,000 UNIT/ML 1 ML VIAL SQ SCH (23:08)
--- NOTE | 2018-05-14 23:19 | OP ---
OPERATIVE REPORT DATE OF SURGERY: 05/14/2018. SURGEON: Dr. Oma Lockhart. CREDIT RELATIONSHIP MANAGER: CAMERON Bustos. PREOPERATIVE DIAGNOSES:: 1. Severe aortic valve stenosis. 2. Moderate mitral valve regurgitation. 3. Chronic atrial fibrillation. 4. Hypertension, hyperlipidemia. 5. Peripheral vascular disease. 6. Deep venous thromboses. 7. Ejection fraction around 40%-45%. POSTOPERATIVE DIAGNOSES:: 1. Severe aortic valve stenosis. 2. Moderate mitral valve regurgitation. 3. Chronic atrial fibrillation. 4. Hypertension, hyperlipidemia. 5. Peripheral vascular disease. 6. Deep venous thromboses. 7. Ejection fraction around 40%-45%. OPERATIONS:: 1. Aortic valve replacement using a 25 mm bovine bioprosthesis Inspiris. 2. Exclusion of the left atrial appendage using a 45 mm AtriClip. 3. Intraoperative transesophageal echocardiogram and epiaortic scanning. ESTIMATED BLOOD LOSS:: SPECIMEN TAKEN:: INDICATION FOR SURGERY: The patient is an 83-year-old gentleman followed with known severe aortic valve stenosis. He has also chronic atrial fibrillation. His recent low-level stress test showed decreased functionality. His latest echo shows an ejection fraction of 45% and a mean gradient across the aortic valve of around 70 mmHg. Had moderate mitral valve regurgitation that is central. He has bi-atrial dilatation with chronic atrial fibrillation. The patient is brought in today for aortic valve replacement. We will be checking the mitral valve by IOANA to rule out any structural issue with it. STS risk was discussed with him and his family. They understood it and agreed to proceed. NARRATIVE:: With the patient in supine position, the right internal jugular [place]-Kavon catheter and the right radial arterial line were placed in the preoperative holding area. Subsequently he was brought to the operating room and his PA pressure was 34/24 and cardiac index was 2.1. Subsequently, general endotracheal anesthesia was induced uneventfully. the Chery catheter was inserted. The chest, abdomen and both lower extremities were prepped and draped using ChloraPrep. Ioban was used to cover the skin. Patient received 2 g of cefazolin intravenously. Transesophageal echocardiogram confirmed the preoperative finding of severe aortic valve stenosis with mild to moderate mitral valve regurgitation that was central. There was no prolapse noted in the mitral valve. The ejection fraction was mildly depressed. There were no clots in the left atrial appendage. A midline sternotomy was performed and the bone was profusely bleeding. No bone wax was used. Mediastinal fat was dissected between 2 ties and epiaortic scanning revealed normal ascending aorta. Pericardium was opened in an inverted T-fashion and a pericardial cradle was created. Findings included a dilated right atrium, mildly dilated heart and a normal soft aorta. After systemic heparinization after placement of respective pledgeted pursestring, aortic cannulation with a 21-Moldovan soft flow cannula and venous cannulation via the right atrial appendage with a dual stage cannula was performed. Antegrade as well as retrograde cardioplegia catheters were placed. Cardiopulmonary bypass was initiated and the patient's temperature was allowed to drift down to 34 degrees Celsius. We started by initially exposing the area of the left atrial appendage. Some adhesions to the epicardial fat were cauterized to mobilize the base of the appendage. There was a pinpoint venous bleed that required a pledgeted 4-0 Prolene at that level at the base of the appendage. Subsequently, the appendage was excluded using a 45 mm AtriClip. Attention was moved to the aortic valve. The aorta was opened in a transverse fashion around 1 cm above the sinotubular junction. Exploration revealed a severely calcific trileaflet valve. The valve was excised. We proceeded at a tedious debridement off the anulus to soft tissue. Thorough irrigation had been performed several times. The anulus was measured to a 25 mm Clark Inspiris valve. A total of 16 Ti-Cron 2-0 pledgeted sutures were passed horizontally all along the perimeter of the anulus with the pledgets on the ventricular side. They were passed into the bioprosthesis cuff symmetrically. The bioprosthesis was seated nicely supra-annular and all the needles were cut and the suture tied using the Cor-Knot device. Both coronary ostia were clear. Thorough irrigation performed again. The aortotomy had split quite posteriorly. We closed the aortotomy with a Prolene 4-0 pledgeted on each corner and in 2 layers, the 1st layer in a horizontal mattress fashion. The 2nd layer in an over and over technique. The rewarming was started as we were closing the aorta. The CO2 that was flowing over the field when the aorta was opened was stopped. De-airing maneuvers were followed. I placed CoSeal glue over the aortotomy. Subsequently, the aorta was unclamped. The patient regained slow junctional rhythm. Two monopolar atrial pace wires were affixed to the respective pursestrings on the right atrium. One bipolar ventricular pacing wire was driven via the inferior aspect of the right ventricle. With progressive re-perfusion, we proceeded also with de- airing. I inserted an 18-gauge needle in the apex of the heart to help de-airing the air lined up against the septum. The hole was closed with a [id number] Prolene 6- 0. Once the de-airing was completed and with what seemed to be good left ventricular function, we were able to wean off cardiopulmonary bypass, atrially paced at 80 without the need of any inotropic or vasopressor support. IOANA showed good functioning aortic valve with no paravalvular leak and mild mitral valve regurgitation. Test dose, then full dose protamine was given. Decannulation followed. The antegrade cardioplegia site required reinforcement as well as the aortotomy in view of friability of the aortic wall. Floseal was applied also over this area. Two substernal 32-Moldovan chest tubes were placed. Pericardial fat was approximated over the heart and the pericardium loosely approximated over the right ventricle. After ensuring adequate hemostasis, which took a while in view of probably the chronic Coumadin intake and the patient required 6 units of platelets and 2 units of FFP to help that matter and with good hemodynamics, we proceeded closing the sternum using 5 [id number] Robinson cable after interposing Fibrillar between the sternal edges. Thorough irrigation with cefazolin followed. The rest of the closure proceeded in layers. Skin glue was applied. The patient received again 2 units of FFP and 6 units of platelets and 1 L of Cell Saver blood. He was transferred to the ICU, atrially paced at 80, with good hemodynamics, normal PA pressure and mean arterial pressure of 72 without inotropic vasopressor support. MMODL / IJN: [id number] /
[2018-05-15 00:25] LABS: Glucose,Whole Blood 130 mg/dL (75-99)
[2018-05-15 01:09] LABS: Glucose,Whole Blood 126 mg/dL (75-99)
[2018-05-15 02:04] LABS: Glucose,Whole Blood 119 mg/dL (75-99)
[2018-05-15 03:11] LABS: Glucose,Whole Blood 125 mg/dL (75-99)
[2018-05-15 04:20] LABS: Glucose,Whole Blood 116 mg/dL (75-99)
[2018-05-15 04:35] LABS: Basophils % (A) 0 %; Eosinophils % (A) 0 %; HCT 28.5 % (39.0-53.0); HGB 9.2 gm/dL (13.0-17.5); Lymphocytes # (A) 0.4 k/uL (1.0-4.8); Lymphocytes % (A) 6 %; MCH 27.9 pg (25.0-35.0); MCHC 32.4 g/dL (31.0-37.0); MCV 86.2 fL (80.0-100.0); Mean Platelet Volume 8.4; Monocytes # (A) 0.4 k/uL (0-1.0); Monocytes % (A) 6 %; Neutrophils % (A) 88 %; Platelet Count 105 k/uL (150-450); RDW 14.5 % (11.5-15.5); WBC 6.8 k/uL (3.8-10.6)
[2018-05-15 04:43] LABS: INR 1.2 (<1.2); Ionized Calcium 4.8 mg/dL (4.5-5.3); Partial Thromboplastin Time 27.5 sec (22.0-30.0); Prothrombin Time 11.3 sec (9.0-12.0)
[2018-05-15 04:53] LABS: ALT 25 U/L (21-72); AST 29 U/L (17-59); Alkaline Phosphatase 32 U/L (38-126); Anion Gap 5 mmol/L; Blood Urea Nitrogen 16 mg/dL (9-20); Calcium 8.4 mg/dL (8.4-10.2); Carbon Dioxide 25 mmol/L (22-30); Chloride 109 mmol/L (98-107); Glucose 107 mg/dL (74-99); Magnesium 1.9 mg/dL (1.6-2.3); Potassium 4.3 mmol/L (3.5-5.1); Sodium 139 mmol/L (137-145); Total Bilirubin 0.7 mg/dL (0.2-1.3); Total Protein 4.8 g/dL (6.3-8.2)
[2018-05-15 05:05] LABS: Glucose,Whole Blood 113 mg/dL (75-99)
[2018-05-15] MEDS: ACETAMINOPHEN IV (For NPO) 1,000 MG in EMPTY BAG 1 BAG IVPB SCH ×3 (06:44→17:48)
[2018-05-15 06:55] LABS: Glucose,Whole Blood 126 mg/dL (75-99)
[2018-05-15] MEDS: MAGNESIUM SULFATE-D5W PMX 1 GM in DEXTROSE/WATER 1 100ML.BAG IVPB SCH ×2 (07:07→08:56)
--- NOTE | 2018-05-15 07:36 | P.PN ---
Subjective Progress Note Date: 05/15/18 Principal diagnosis: Status post aortic valve replacement for aortic stenosis Progress note dated 05/15/2018 This is an 83-year-old gentleman who is postop day #1, status post aortic valve placement and excision of left atrial appendage for severe aortic stenosis. The patient was successfully extubated within 4 hours. The patient also has a history of mitral valve regurgitation chronic atrial fibrillation nicotine dependence anemia secondary to blood loss from the surgery, systolic dysfunction with an ejection fraction of 40-45% stable CAD hypertension hyperlipidemia BPH. Currently, the patient is not on any supplemental oxygen. He is Receiving IV cleviprex at 2 mg per hour. He is also on an insulin drip at 2.5 units per hour and lactated Ringer's IV at 50 mL an hour. The patient seemed be doing reasonably well. Certainly has pain at the surgical site. He denies any significant cough or wheezing. He is not practically short of breath. Denies any chest pain or chest discomfort other than surgical site pain. The patient's working on his incentive spirometer. As I mentioned above , he was able to be weaned and extubated within 4 hours. Objective - Vital Signs Vital signs: Vital Signs Temp 98.6 F 05/15/18 04:00 Pulse 68 05/15/18 07:00 Resp 16 05/15/18 07:00 BP 126/59 05/14/18 15:01 Pulse Ox 100 05/15/18 07:00 Intake & Output 05/14/18 05/15/18 05/15/18 18:59 06:59 18:59 Intake Total 348.154 4403.825 Output Total 4190 808 Balance -3191.090 279.825 Weight 95.254 kg 98.7 kg Intake: IV 249 988 0.9NS Cardiac Output 60 130 0.9NS Pressure Bag 36 158 ACETAMINOPHEN IV (For NPO 100 ) 1,000 mg In Empty Bag 1 bag @ 400 mls/hr IVPB Q6HR [facility] Rx#:[id number] Lactated Ringers 1,000 ml 150 600 @ 50 mls/hr IV .Q20H [facility] Rx#:[id number] Intake, IV Titration 20.910 99.825 Amount Clevidipine Butyrate 25 16.433 15.833 mg In Empty Bag 1 bag @ 1 MG/HR 2 mls/hr IV .Q24H [facility] Rx#:[id number] Insulin Regular 100 unit 4.477 33.992 In Sodium Chloride 0.9% 100 ml @ Per Protocol IV .Q0M [facility] Rx#:[id number] ceFAZolin 2,000 mg In 50 Sodium Chloride 0.9% 30 ml @ Per Protocol IVPB ONCE ONE Rx#:[id number] Blood Product 729 Ffp 24 Cpd Unit 296 [id number] Ffp 24 Cpda Unit 208 [id number] Platelet Pheresis Acda1 0 Unit [id number] Pooled Cryoprecipitate 114 Unit [id number] Pooled Cryoprecipitate 111 Unit [id number] Output: Chest Tube Drainage [address] X 2 170 298 Urine 1020 510 Estimated Blood Loss 3000 Other: Voiding Method Indwelling Catheter Indwelling Catheter ABP, PAP, CO, CI - Last Documented Arterial Blood Pressure 128/45 Pulmonary Artery Pressure 18/11 Cardiac Output 5.5 Cardiac Index 2.4 - Exam No acute distress, oriented 3. Not requiring supplemental oxygen. HEENT examination is grossly unremarkable. Mucous membranes are moist. No oral lesions. Neck supple. Full range of motion. No adenopathy thyromegaly or neck vein distention. Cardiovascular examination reveals regular rhythm rate. S1-S2 normal. No S3 or S4. No discernible murmur noted. Heart sounds are distant. Lungs reveal bilateral coarse rhonchi. They clear with deep breathing and coughing. No wheezes or crackles. Breath sounds equal bilaterally. Abdomen soft bowel sounds are heard. No masses or tenderness. Extremities are intact. No cyanosis clubbing or edema. Skin is without rash or lesion. Neurologic examination is brief but nonfocal. - Labs CBC & Chem 7: 05/15/18 04:15 05/15/18 04:15 Labs: Abnormal Lab Results - Last 24 Hours (Table) 05/07/18 05/14/18 05/14/18 Range/Units 09:20 08:30 08:30 RBC (4.30-5.90) m/uL Hgb 12.9 L (13.0-17.5) gm/dL Hct (39.0-53.0) % Plt Count 141 L (150-450) k/uL Lymphocytes # 0.8 L (1.0-4.8) k/uL PT 12.7 H (9.0-12.0) sec INR 1.3 H (<1.2) Fibrinogen (200-500) mg/dL ABG pH (7.35-7.45) ABG pCO2 (35-45) mmHg ABG pO2 (83-108) mmHg ABG HCO3 (21-25) mmol/L ABG Total CO2 (19-24) mmol/L ABG O2 Saturation (94-97) % ABG Hematocrit (34.0-46.0) % ABG Potassium (3.4-4.5) mmol/L ABG Ionized Calcium (4.5-5.3) mg/dL ABG Glucose (75-99) mg/dL ABG Lactic Acid (0.5-1.6) mmol/L Hemoglobin (13.0-17.5) gm/dL Chloride (98-107) mmol/L Creatinine (0.66-1.25) mg/dL Glucose (74-99) mg/dL POC Glucose (mg/dL) (75-99) mg/dL Calcium (8.4-10.2) mg/dL Alkaline Phosphatase (38-126) U/L Total Protein (6.3-8.2) g/dL Albumin (3.5-5.0) g/dL Arterial Blood Potassium (3.4-4.5) mmol/L Arterial Blood Glucose (75-99) mg/dL Crossmatch See Detail 05/14/18 05/14/18 05/14/18 Range/Units 08:52 09:53 10:40 RBC (4.30-5.90) m/uL Hgb (13.0-17.5) gm/dL Hct (39.0-53.0) % Plt Count (150-450) k/uL Lymphocytes # (1.0-4.8) k/uL PT (9.0-12.0) sec INR (<1.2) Fibrinogen (200-500) mg/dL ABG pH (7.35-7.45) ABG pCO2 46 H (35-45) mmHg ABG pO2 409 H 189 H 259 H (83-108) mmHg ABG HCO3 26 H (21-25) mmol/L ABG Total CO2 26 H 28 H 26 H (19-24) mmol/L ABG O2 Saturation 100.0 H 99.6 H 99.9 H (94-97) % ABG Hematocrit 28 L (34.0-46.0) % ABG Potassium (3.4-4.5) mmol/L ABG Ionized Calcium 4.4 L (4.5-5.3) mg/dL ABG Glucose 103 H 114 H 164 H (75-99) mg/dL ABG Lactic Acid (0.5-1.6) mmol/L Hemoglobin 12.7 L 11.7 L 9.1 L (13.0-17.5) gm/dL Chloride (98-107) mmol/L Creatinine (0.66-1.25) mg/dL Glucose (74-99) mg/dL POC Glucose (mg/dL) (75-99) mg/dL Calcium (8.4-10.2) mg/dL Alkaline Phosphatase (38-126) U/L Total Protein (6.3-8.2) g/dL Albumin (3.5-5.0) g/dL Arterial Blood Potassium (3.4-4.5) mmol/L Arterial Blood Glucose 103 H 114 H 164 H (75-99) mg/dL Crossmatch 05/14/18 05/14/18 05/14/18 Range/Units 11:10 11:51 13:34 RBC 3.10 L (4.30-5.90) m/uL Hgb 8.7 L D (13.0-17.5) gm/dL Hct 26.7 L (39.0-53.0) % Plt Count 103 L (150-450) k/uL Lymphocytes # 0.3 L (1.0-4.8) k/uL PT (9.0-12.0) sec INR (<1.2) Fibrinogen (200-500) mg/dL ABG pH 7.34 L (7.35-7.45) ABG pCO2 47 H (35-45) mmHg ABG pO2 248 H 407 H (83-108) mmHg ABG HCO3 (21-25) mmol/L ABG Total CO2 27 H (19-24) mmol/L ABG O2 Saturation 99.7 H 100.0 H (94-97) % ABG Hematocrit 28 L 31 L (34.0-46.0) % ABG Potassium 4.9 H 4.7 H (3.4-4.5) mmol/L ABG Ionized Calcium 4.4 L 4.3 L (4.5-5.3) mg/dL ABG Glucose 187 H 166 H (75-99) mg/dL ABG Lactic Acid 2.0 H (0.5-1.6) mmol/L Hemoglobin 9.1 L 10.3 L (13.0-17.5) gm/dL Chloride (98-107) mmol/L Creatinine (0.66-1.25) mg/dL Glucose (74-99) mg/dL POC Glucose (mg/dL) (75-99) mg/dL Calcium (8.4-10.2) mg/dL Alkaline Phosphatase (38-126) U/L Total Protein (6.3-8.2) g/dL Albumin (3.5-5.0) g/dL Arterial Blood Potassium 4.9 H 4.7 H (3.4-4.5) mmol/L Arterial Blood Glucose 187 H 166 H (75-99) mg/dL Crossmatch 05/14/18 05/14/18 05/14/18 Range/Units 13:34 13:35 14:25 RBC (4.30-5.90) m/uL Hgb (13.0-17.5) gm/dL Hct (39.0-53.0) % Plt Count (150-450) k/uL Lymphocytes # (1.0-4.8) k/uL PT 14.1 H (9.0-12.0) sec INR 1.5 H (<1.2) Fibrinogen 160 L (200-500) mg/dL ABG pH (7.35-7.45) ABG pCO2 (35-45) mmHg ABG pO2 153 H (83-108) mmHg ABG HCO3 (21-25) mmol/L ABG Total CO2 25 H (19-24) mmol/L ABG O2 Saturation 99.2 H (94-97) % ABG Hematocrit 28 L (34.0-46.0) % ABG Potassium (3.4-4.5) mmol/L ABG Ionized Calcium 4.2 L (4.5-5.3) mg/dL ABG Glucose 125 H (75-99) mg/dL ABG Lactic Acid 1.7 H (0.5-1.6) mmol/L Hemoglobin 9.1 L (13.0-17.5) gm/dL Chloride (98-107) mmol/L Creatinine (0.66-1.25) mg/dL Glucose (74-99) mg/dL POC Glucose (mg/dL) 115 H (75-99) mg/dL Calcium (8.4-10.2) mg/dL Alkaline Phosphatase (38-126) U/L Total Protein (6.3-8.2) g/dL Albumin (3.5-5.0) g/dL Arterial Blood Potassium (3.4-4.5) mmol/L Arterial Blood Glucose 125 H (75-99) mg/dL Crossmatch 05/14/18 05/14/18 05/14/18 Range/Units 14:26 14:26 14:26 RBC 3.16 L (4.30-5.90) m/uL Hgb 9.2 L (13.0-17.5) gm/dL Hct 27.1 L (39.0-53.0) % Plt Count 85 L (150-450) k/uL Lymphocytes # 0.5 L (1.0-4.8) k/uL PT 13.9 H (9.0-12.0) sec INR 1.5 H (<1.2) Fibrinogen (200-500) mg/dL ABG pH (7.35-7.45) ABG pCO2 (35-45) mmHg ABG pO2 (83-108) mmHg ABG HCO3 (21-25) mmol/L ABG Total CO2 (19-24) mmol/L ABG O2 Saturation (94-97) % ABG Hematocrit (34.0-46.0) % ABG Potassium (3.4-4.5) mmol/L ABG Ionized Calcium (4.5-5.3) mg/dL ABG Glucose (75-99) mg/dL ABG Lactic Acid (0.5-1.6) mmol/L Hemoglobin (13.0-17.5) gm/dL Chloride 110 H (98-107) mmol/L Creatinine 0.60 L (0.66-1.25) mg/dL Glucose 105 H (74-99) mg/dL POC Glucose (mg/dL) (75-99) mg/dL Calcium 8.3 L (8.4-10.2) mg/dL Alkaline Phosphatase 26 L (38-126) U/L Total Protein 4.5 L (6.3-8.2) g/dL Albumin 2.9 L (3.5-5.0) g/dL Arterial Blood Potassium (3.4-4.5) mmol/L Arterial Blood Glucose (75-99) mg/dL Crossmatch 05/14/18 05/14/18 05/14/18 Range/Units 15:00 15:00 16:03 RBC (4.30-5.90) m/uL Hgb (13.0-17.5) gm/dL Hct (39.0-53.0) % Plt Count (150-450) k/uL Lymphocytes # (1.0-4.8) k/uL PT (9.0-12.0) sec INR (<1.2) Fibrinogen (200-500) mg/dL ABG pH (7.35-7.45) ABG pCO2 (35-45) mmHg ABG pO2 117 H (83-108) mmHg ABG HCO3 (21-25) mmol/L ABG Total CO2 26 H (19-24) mmol/L ABG O2 Saturation 98.8 H (94-97) % ABG Hematocrit (34.0-46.0) % ABG Potassium (3.4-4.5) mmol/L ABG Ionized Calcium (4.5-5.3) mg/dL ABG Glucose (75-99) mg/dL ABG Lactic Acid (0.5-1.6) mmol/L Hemoglobin (13.0-17.5) gm/dL Chloride (98-107) mmol/L Creatinine (0.66-1.25) mg/dL Glucose (74-99) mg/dL POC Glucose (mg/dL) 125 H 156 H (75-99) mg/dL Calcium (8.4-10.2) mg/dL Alkaline Phosphatase (38-126) U/L Total Protein (6.3-8.2) g/dL Albumin (3.5-5.0) g/dL Arterial Blood Potassium (3.4-4.5) mmol/L Arterial Blood Glucose (75-99) mg/dL Crossmatch 05/14/18 05/14/18 05/14/18 Range/Units 17:07 17:10 17:56 RBC 3.56 L (4.30-5.90) m/uL Hgb 10.1 L (13.0-17.5) gm/dL Hct 30.8 L (39.0-53.0) % Plt Count 118 L (150-450) k/uL Lymphocytes # 0.5 L (1.0-4.8) k/uL PT (9.0-12.0) sec INR (<1.2) Fibrinogen (200-500) mg/dL ABG pH (7.35-7.45) ABG pCO2 (35-45) mmHg ABG pO2 (83-108) mmHg ABG HCO3 (21-25) mmol/L ABG Total CO2 (19-24) mmol/L ABG O2 Saturation (94-97) % ABG Hematocrit (34.0-46.0) % ABG Potassium (3.4-4.5) mmol/L ABG Ionized Calcium (4.5-5.3) mg/dL ABG Glucose (75-99) mg/dL ABG Lactic Acid (0.5-1.6) mmol/L Hemoglobin (13.0-17.5) gm/dL Chloride (98-107) mmol/L Creatinine (0.66-1.25) mg/dL Glucose (74-99) mg/dL POC Glucose (mg/dL) 168 H 172 H (75-99) mg/dL Calcium (8.4-10.2) mg/dL Alkaline Phosphatase (38-126) U/L Total Protein (6.3-8.2) g/dL Albumin (3.5-5.0) g/dL Arterial Blood Potassium (3.4-4.5) mmol/L Arterial Blood Glucose (75-99) mg/dL Crossmatch 05/14/18 05/14/18 05/14/18 Range/Units 18:02 19:01 20:01 RBC (4.30-5.90) m/uL Hgb (13.0-17.5) gm/dL Hct (39.0-53.0) % Plt Count (150-450) k/uL Lymphocytes # (1.0-4.8) k/uL PT (9.0-12.0) sec INR (<1.2) Fibrinogen (200-500) mg/dL ABG pH (7.35-7.45) ABG pCO2 (35-45) mmHg ABG pO2 (83-108) mmHg ABG HCO3 (21-25) mmol/L ABG Total CO2 (19-24) mmol/L ABG O2 Saturation 97.6 H (94-97) % ABG Hematocrit (34.0-46.0) % ABG Potassium (3.4-4.5) mmol/L ABG Ionized Calcium (4.5-5.3) mg/dL ABG Glucose (75-99) mg/dL ABG Lactic Acid (0.5-1.6) mmol/L Hemoglobin (13.0-17.5) gm/dL Chloride (98-107) mmol/L Creatinine (0.66-1.25) mg/dL Glucose (74-99) mg/dL POC Glucose (mg/dL) 159 H 140 H (75-99) mg/dL Calcium (8.4-10.2) mg/dL Alkaline Phosphatase (38-126) U/L Total Protein (6.3-8.2) g/dL Albumin (3.5-5.0) g/dL Arterial Blood Potassium (3.4-4.5) mmol/L Arterial Blood Glucose (75-99) mg/dL Crossmatch 05/14/18 05/14/18 05/14/18 Range/Units 20:29 21:00 22:03 RBC 3.33 L (4.30-5.90) m/uL Hgb 9.5 L (13.0-17.5) gm/dL Hct 28.7 L (39.0-53.0) % Plt Count 105 L (150-450) k/uL Lymphocytes # 0.2 L (1.0-4.8) k/uL PT (9.0-12.0) sec INR (<1.2) Fibrinogen (200-500) mg/dL ABG pH (7.35-7.45) ABG pCO2 (35-45) mmHg ABG pO2 (83-108) mmHg ABG HCO3 (21-25) mmol/L ABG Total CO2 (19-24) mmol/L ABG O2 Saturation (94-97) % ABG Hematocrit (34.0-46.0) % ABG Potassium (3.4-4.5) mmol/L ABG Ionized Calcium (4.5-5.3) mg/dL ABG Glucose (75-99) mg/dL ABG Lactic Acid (0.5-1.6) mmol/L Hemoglobin (13.0-17.5) gm/dL Chloride (98-107) mmol/L Creatinine (0.66-1.25) mg/dL Glucose (74-99) mg/dL POC Glucose (mg/dL) 128 H 122 H (75-99) mg/dL Calcium (8.4-10.2) mg/dL Alkaline Phosphatase (38-126) U/L Total Protein (6.3-8.2) g/dL Albumin (3.5-5.0) g/dL Arterial Blood Potassium (3.4-4.5) mmol/L Arterial Blood Glucose (75-99) mg/dL Crossmatch 05/14/18 05/15/18 05/15/18 Range/Units 22:49 00:21 01:03 RBC (4.30-5.90) m/uL Hgb (13.0-17.5) gm/dL Hct (39.0-53.0) % Plt Count (150-450) k/uL Lymphocytes # (1.0-4.8) k/uL PT (9.0-12.0) sec INR (<1.2) Fibrinogen (200-500) mg/dL ABG pH (7.35-7.45) ABG pCO2 (35-45) mmHg ABG pO2 (83-108) mmHg ABG HCO3 (21-25) mmol/L ABG Total CO2 (19-24) mmol/L ABG O2 Saturation (94-97) % ABG Hematocrit (34.0-46.0) % ABG Potassium (3.4-4.5) mmol/L ABG Ionized Calcium (4.5-5.3) mg/dL ABG Glucose (75-99) mg/dL ABG Lactic Acid (0.5-1.6) mmol/L Hemoglobin (13.0-17.5) gm/dL Chloride (98-107) mmol/L Creatinine (0.66-1.25) mg/dL Glucose (74-99) mg/dL POC Glucose (mg/dL) 124 H 130 H 126 H (75-99) mg/dL Calcium (8.4-10.2) mg/dL Alkaline Phosphatase (38-126) U/L Total Protein (6.3-8.2) g/dL Albumin (3.5-5.0) g/dL Arterial Blood Potassium (3.4-4.5) mmol/L Arterial Blood Glucose (75-99) mg/dL Crossmatch 05/15/18 05/15/18 05/15/18 Range/Units 02:00 03:07 04:15 RBC 3.30 L (4.30-5.90) m/uL Hgb 9.2 L (13.0-17.5) gm/dL Hct 28.5 L (39.0-53.0) % Plt Count 105 L (150-450) k/uL Lymphocytes # 0.4 L (1.0-4.8) k/uL PT (9.0-12.0) sec INR (<1.2) Fibrinogen (200-500) mg/dL ABG pH (7.35-7.45) ABG pCO2 (35-45) mmHg ABG pO2 (83-108) mmHg ABG HCO3 (21-25) mmol/L ABG Total CO2 (19-24) mmol/L ABG O2 Saturation (94-97) % ABG Hematocrit (34.0-46.0) % ABG Potassium (3.4-4.5) mmol/L ABG Ionized Calcium (4.5-5.3) mg/dL ABG Glucose (75-99) mg/dL ABG Lactic Acid (0.5-1.6) mmol/L Hemoglobin (13.0-17.5) gm/dL Chloride (98-107) mmol/L Creatinine (0.66-1.25) mg/dL Glucose (74-99) mg/dL POC Glucose (mg/dL) 119 H 125 H (75-99) mg/dL Calcium (8.4-10.2) mg/dL Alkaline Phosphatase (38-126) U/L Total Protein (6.3-8.2) g/dL Albumin (3.5-5.0) g/dL Arterial Blood Potassium (3.4-4.5) mmol/L Arterial Blood Glucose (75-99) mg/dL Crossmatch 05/15/18 05/15/18 05/15/18 Range/Units 04:15 04:15 04:18 RBC (4.30-5.90) m/uL Hgb (13.0-17.5) gm/dL Hct (39.0-53.0) % Plt Count (150-450) k/uL Lymphocytes # (1.0-4.8) k/uL PT (9.0-12.0) sec INR 1.2 H (<1.2) Fibrinogen (200-500) mg/dL ABG pH (7.35-7.45) ABG pCO2 (35-45) mmHg ABG pO2 (83-108) mmHg ABG HCO3 (21-25) mmol/L ABG Total CO2 (19-24) mmol/L ABG O2 Saturation (94-97) % ABG Hematocrit (34.0-46.0) % ABG Potassium (3.4-4.5) mmol/L ABG Ionized Calcium (4.5-5.3) mg/dL ABG Glucose (75-99) mg/dL ABG Lactic Acid (0.5-1.6) mmol/L Hemoglobin (13.0-17.5) gm/dL Chloride 109 H (98-107) mmol/L Creatinine 0.61 L (0.66-1.25) mg/dL Glucose 107 H (74-99) mg/dL POC Glucose (mg/dL) 116 H (75-99) mg/dL Calcium (8.4-10.2) mg/dL Alkaline Phosphatase 32 L (38-126) U/L Total Protein 4.8 L (6.3-8.2) g/dL Albumin 3.0 L (3.5-5.0) g/dL Arterial Blood Potassium (3.4-4.5) mmol/L Arterial Blood Glucose (75-99) mg/dL Crossmatch 05/15/18 05/15/18 Range/Units 05:04 06:52 RBC (4.30-5.90) m/uL Hgb (13.0-17.5) gm/dL Hct (39.0-53.0) % Plt Count (150-450) k/uL Lymphocytes # (1.0-4.8) k/uL PT (9.0-12.0) sec INR (<1.2) Fibrinogen (200-500) mg/dL ABG pH (7.35-7.45) ABG pCO2 (35-45) mmHg ABG pO2 (83-108) mmHg ABG HCO3 (21-25) mmol/L ABG Total CO2 (19-24) mmol/L ABG O2 Saturation (94-97) % ABG Hematocrit (34.0-46.0) % ABG Potassium (3.4-4.5) mmol/L ABG Ionized Calcium (4.5-5.3) mg/dL ABG Glucose (75-99) mg/dL ABG Lactic Acid (0.5-1.6) mmol/L Hemoglobin (13.0-17.5) gm/dL Chloride (98-107) mmol/L Creatinine (0.66-1.25) mg/dL Glucose (74-99) mg/dL POC Glucose (mg/dL) 113 H 126 H (75-99) mg/dL Calcium (8.4-10.2) mg/dL Alkaline Phosphatase (38-126) U/L Total Protein (6.3-8.2) g/dL Albumin (3.5-5.0) g/dL Arterial Blood Potassium (3.4-4.5) mmol/L Arterial Blood Glucose (75-99) mg/dL Crossmatch Assessment and Plan Assessment: Assessment Postop day #1, status post aortic valve replacement, intraoperative transesophageal echocardiogram, excision of left atrial appendage. History of severe aortic stenosis and moderate mitral valve regurgitation Status post routine postoperative ventilator management History of chronic atrial fibrillation History of chronic nicotine dependence History of anemia secondary to surgery. Left ventricular systolic dysfunction, with an ejection fraction of 40-45% Moderate pulmonary hypertension History of CAD History of hypertension History of hyperlipidemia History of BPH Plan: Plan dated 05/15/2018 The patient will continue with deep breathing coughing and clearing of secretions. We'll also recommend that he use incentive spirometer every hour. In addition, we will continue with the updraft treatments. White count is 6.8, hemoglobin 9.2, hematocrit 28.5, and platelet count 105,000. PT INR and PTT are all normal. Sodium potassium normal. Chlorides 109. Bicarbonate concentration anion gap BUN and creatinine all normal. Chest x-ray shows post surgical changes as well as some bibasilar atelectasis. Medications are reviewed and are appropriate. I will continue to follow this patient. Hopefully the patient will be weaned off the IV calcium channel kristopher and a short period of time. Critical care time 34 minutes Time with Patient: Greater than 30
[2018-05-15] MEDS: IPRATROPIUM-ALBUTEROL 3 ML NEB INHALATION SCH ×4 (07:43→19:37)
[2018-05-15 08:04] LABS: Glucose,Whole Blood 134 mg/dL (75-99)
[2018-05-15] MEDS ORDERED: FUROSEMIDE 10 MG/ML 2 ML VIAL IV ONE ×3 (08:37→19:11)
--- NOTE | 2018-05-15 08:52 | P.PN ---
Subjective Progress Note Date: 05/15/18 Principal diagnosis: Severe aortic valve stenosis. Moderate mitral valve regurgitation. Chronic atrial fibrillation on Coumadin for anticoagulation. Chronic, stable proximal LAD lesion 50%. Hypertension. Hyperlipidemia. Peripheral vascular disease. Deep vein thrombosis in 2013. Left ventricular systolic dysfunction with ejection fraction of 40-45%. Previous tobacco dependence. Mild COPD with preoperative FEV1 66% of predicted. BPH. POD #1 aortic valve replacement using a 25 mm bovine Inspiris bioprosthesis. Exclusion of the left atrial appendage using a 45 mm AtriClip. Intraoperative transesophageal echocardiogram and epi-aortic scanning. Patient is currently sitting up in a recliner in no acute distress. Denies pain. He was successfully extubated last night at 18:12. Hemodynamically stable on no pressors. No new complaints. Objective - Vital Signs Vital signs: Vital Signs Temp 98.6 F 05/15/18 04:00 Pulse 72 05/15/18 07:57 Resp 16 05/15/18 07:00 BP 126/59 05/14/18 15:01 Pulse Ox 100 05/15/18 07:00 Intake & Output 05/14/18 05/15/18 05/15/18 18:59 06:59 18:59 Intake Total 791.943 0704.825 Output Total 4190 808 Balance -3191.090 279.825 Weight 95.254 kg 98.7 kg Intake: IV 249 988 0.9NS Cardiac Output 60 130 0.9NS Pressure Bag 36 158 ACETAMINOPHEN IV (For NPO 100 ) 1,000 mg In Empty Bag 1 bag @ 400 mls/hr IVPB Q6HR DIDIER Rx#:[id number] Lactated Ringers 1,000 ml 150 600 @ 50 mls/hr IV .Q20H DIDIER Rx#:[id number] Intake, IV Titration 20.910 99.825 Amount Clevidipine Butyrate 25 16.433 15.833 mg In Empty Bag 1 bag @ 1 MG/HR 2 mls/hr IV .Q24H DIDIER Rx#:[id number] Insulin Regular 100 unit 4.477 33.992 In Sodium Chloride 0.9% 100 ml @ Per Protocol IV .Q0M DIDIER Rx#:[id number] ceFAZolin 2,000 mg In 50 Sodium Chloride 0.9% 30 ml @ Per Protocol IVPB ONCE ONE Rx#:[id number] Blood Product 729 Ffp 24 Cpd Unit 296 [id number] Ffp 24 Cpda Unit 208 [id number] Platelet Pheresis Acda1 0 Unit [id number] Pooled Cryoprecipitate 114 Unit [id number] Pooled Cryoprecipitate 111 Unit [id number] Output: Chest Tube Drainage [address] X 2 170 298 Urine 1020 510 Estimated Blood Loss 3000 Other: Voiding Method Indwelling Catheter Indwelling Catheter ABP, PAP, CO, CI - Last Documented Arterial Blood Pressure 128/45 Pulmonary Artery Pressure 18/11 Cardiac Output 5.5 Cardiac Index 2.4 - Constitutional General appearance: Present: cooperative, no acute distress - Respiratory Details: Lungs sounds diminished bilaterally. Respirations even, nonlabored. Currently on room air with oxygen saturation 94%. Able to achieve 750-1000 mL on his incentive spirometry. Effective cough. - Cardiovascular Details: S1, S2 present. Irregular rate and rhythm, atrial fibrillation on telemetry. Sternum stable. A/V epicardial pacemaker wires present, connected to generator , AAI mode with backup rate 50 bpm. Palpable peripheral pulses bilaterally. No edema present. No calf pain or tenderness noted. Right internal jugular [place], left radial arterial line present. Last CO/CI 4.9/2.3 on no inotropes. Heart hugger in place with patient demonstrating appropriate use. Antiembolism stockings, SCDs present. Mediastinal chest tubes to continuous wall suction, 180 mL serosanguineous drainage overnight, 470 mL since surgery, no air leak present. - Gastrointestinal Gastrointestinal Comment(s): Abdomen soft, nontender, nondistended. Hypoactive bowel sounds present 4 quadrants. Tolerating diet. Negative flatus. - Genitourinary Genitourinary Comment(s): Chery present draining clear, yellow urine. Output 35-40 mL/h overnight. - Integumentary Integumentary Comment(s): Skin is warm and dry with evidence of good perfusion. Anterior chest incision well approximated and covered with dry intact dressing. - Neurologic Neurologic: Present: CNII-XII intact - Musculoskeletal Musculoskeletal: Present: strength equal bilaterally - Psychiatric Psychiatric: Present: A&O x's 3, appropriate affect, intact judgment & insight - Allied health notes Allied health notes reviewed: nursing - Labs CBC & Chem 7: 05/15/18 04:15 05/15/18 04:15 Labs: Abnormal Lab Results - Last 24 Hours (Table) 05/07/18 05/14/18 05/14/18 Range/Units 09:20 08:30 08:30 RBC (4.30-5.90) m/uL Hgb 12.9 L (13.0-17.5) gm/dL Hct (39.0-53.0) % Plt Count 141 L (150-450) k/uL Lymphocytes # 0.8 L (1.0-4.8) k/uL PT 12.7 H (9.0-12.0) sec INR 1.3 H (<1.2) Fibrinogen (200-500) mg/dL ABG pH (7.35-7.45) ABG pCO2 (35-45) mmHg ABG pO2 (83-108) mmHg ABG HCO3 (21-25) mmol/L ABG Total CO2 (19-24) mmol/L ABG O2 Saturation (94-97) % ABG Hematocrit (34.0-46.0) % ABG Potassium (3.4-4.5) mmol/L ABG Ionized Calcium (4.5-5.3) mg/dL ABG Glucose (75-99) mg/dL ABG Lactic Acid (0.5-1.6) mmol/L Hemoglobin (13.0-17.5) gm/dL Chloride (98-107) mmol/L Creatinine (0.66-1.25) mg/dL Glucose (74-99) mg/dL POC Glucose (mg/dL) (75-99) mg/dL Calcium (8.4-10.2) mg/dL Alkaline Phosphatase (38-126) U/L Total Protein (6.3-8.2) g/dL Albumin (3.5-5.0) g/dL Arterial Blood Potassium (3.4-4.5) mmol/L Arterial Blood Glucose (75-99) mg/dL Crossmatch See Detail 05/14/18 05/14/18 05/14/18 Range/Units 08:52 09:53 10:40 RBC (4.30-5.90) m/uL Hgb (13.0-17.5) gm/dL Hct (39.0-53.0) % Plt Count (150-450) k/uL Lymphocytes # (1.0-4.8) k/uL PT (9.0-12.0) sec INR (<1.2) Fibrinogen (200-500) mg/dL ABG pH (7.35-7.45) ABG pCO2 46 H (35-45) mmHg ABG pO2 409 H 189 H 259 H (83-108) mmHg ABG HCO3 26 H (21-25) mmol/L ABG Total CO2 26 H 28 H 26 H (19-24) mmol/L ABG O2 Saturation 100.0 H 99.6 H 99.9 H (94-97) % ABG Hematocrit 28 L (34.0-46.0) % ABG Potassium (3.4-4.5) mmol/L ABG Ionized Calcium 4.4 L (4.5-5.3) mg/dL ABG Glucose 103 H 114 H 164 H (75-99) mg/dL ABG Lactic Acid (0.5-1.6) mmol/L Hemoglobin 12.7 L 11.7 L 9.1 L (13.0-17.5) gm/dL Chloride (98-107) mmol/L Creatinine (0.66-1.25) mg/dL Glucose (74-99) mg/dL POC Glucose (mg/dL) (75-99) mg/dL Calcium (8.4-10.2) mg/dL Alkaline Phosphatase (38-126) U/L Total Protein (6.3-8.2) g/dL Albumin (3.5-5.0) g/dL Arterial Blood Potassium (3.4-4.5) mmol/L Arterial Blood Glucose 103 H 114 H 164 H (75-99) mg/dL Crossmatch 05/14/18 05/14/18 05/14/18 Range/Units 11:10 11:51 13:34 RBC 3.10 L (4.30-5.90) m/uL Hgb 8.7 L D (13.0-17.5) gm/dL Hct 26.7 L (39.0-53.0) % Plt Count 103 L (150-450) k/uL Lymphocytes # 0.3 L (1.0-4.8) k/uL PT (9.0-12.0) sec INR (<1.2) Fibrinogen (200-500) mg/dL ABG pH 7.34 L (7.35-7.45) ABG pCO2 47 H (35-45) mmHg ABG pO2 248 H 407 H (83-108) mmHg ABG HCO3 (21-25) mmol/L ABG Total CO2 27 H (19-24) mmol/L ABG O2 Saturation 99.7 H 100.0 H (94-97) % ABG Hematocrit 28 L 31 L (34.0-46.0) % ABG Potassium 4.9 H 4.7 H (3.4-4.5) mmol/L ABG Ionized Calcium 4.4 L 4.3 L (4.5-5.3) mg/dL ABG Glucose 187 H 166 H (75-99) mg/dL ABG Lactic Acid 2.0 H (0.5-1.6) mmol/L Hemoglobin 9.1 L 10.3 L (13.0-17.5) gm/dL Chloride (98-107) mmol/L Creatinine (0.66-1.25) mg/dL Glucose (74-99) mg/dL POC Glucose (mg/dL) (75-99) mg/dL Calcium (8.4-10.2) mg/dL Alkaline Phosphatase (38-126) U/L Total Protein (6.3-8.2) g/dL Albumin (3.5-5.0) g/dL Arterial Blood Potassium 4.9 H 4.7 H (3.4-4.5) mmol/L Arterial Blood Glucose 187 H 166 H (75-99) mg/dL Crossmatch 05/14/18 05/14/18 05/14/18 Range/Units 13:34 13:35 14:25 RBC (4.30-5.90) m/uL Hgb (13.0-17.5) gm/dL Hct (39.0-53.0) % Plt Count (150-450) k/uL Lymphocytes # (1.0-4.8) k/uL PT 14.1 H (9.0-12.0) sec INR 1.5 H (<1.2) Fibrinogen 160 L (200-500) mg/dL ABG pH (7.35-7.45) ABG pCO2 (35-45) mmHg ABG pO2 153 H (83-108) mmHg ABG HCO3 (21-25) mmol/L ABG Total CO2 25 H (19-24) mmol/L ABG O2 Saturation 99.2 H (94-97) % ABG Hematocrit 28 L (34.0-46.0) % ABG Potassium (3.4-4.5) mmol/L ABG Ionized Calcium 4.2 L (4.5-5.3) mg/dL ABG Glucose 125 H (75-99) mg/dL ABG Lactic Acid 1.7 H (0.5-1.6) mmol/L Hemoglobin 9.1 L (13.0-17.5) gm/dL Chloride (98-107) mmol/L Creatinine (0.66-1.25) mg/dL Glucose (74-99) mg/dL POC Glucose (mg/dL) 115 H (75-99) mg/dL Calcium (8.4-10.2) mg/dL Alkaline Phosphatase (38-126) U/L Total Protein (6.3-8.2) g/dL Albumin (3.5-5.0) g/dL Arterial Blood Potassium (3.4-4.5) mmol/L Arterial Blood Glucose 125 H (75-99) mg/dL Crossmatch 05/14/18 05/14/18 05/14/18 Range/Units 14:26 14:26 14:26 RBC 3.16 L (4.30-5.90) m/uL Hgb 9.2 L (13.0-17.5) gm/dL Hct 27.1 L (39.0-53.0) % Plt Count 85 L (150-450) k/uL Lymphocytes # 0.5 L (1.0-4.8) k/uL PT 13.9 H (9.0-12.0) sec INR 1.5 H (<1.2) Fibrinogen (200-500) mg/dL ABG pH (7.35-7.45) ABG pCO2 (35-45) mmHg ABG pO2 (83-108) mmHg ABG HCO3 (21-25) mmol/L ABG Total CO2 (19-24) mmol/L ABG O2 Saturation (94-97) % ABG Hematocrit (34.0-46.0) % ABG Potassium (3.4-4.5) mmol/L ABG Ionized Calcium (4.5-5.3) mg/dL ABG Glucose (75-99) mg/dL ABG Lactic Acid (0.5-1.6) mmol/L Hemoglobin (13.0-17.5) gm/dL Chloride 110 H (98-107) mmol/L Creatinine 0.60 L (0.66-1.25) mg/dL Glucose 105 H (74-99) mg/dL POC Glucose (mg/dL) (75-99) mg/dL Calcium 8.3 L (8.4-10.2) mg/dL Alkaline Phosphatase 26 L (38-126) U/L Total Protein 4.5 L (6.3-8.2) g/dL Albumin 2.9 L (3.5-5.0) g/dL Arterial Blood Potassium (3.4-4.5) mmol/L Arterial Blood Glucose (75-99) mg/dL Crossmatch 05/14/18 05/14/18 05/14/18 Range/Units 15:00 15:00 16:03 RBC (4.30-5.90) m/uL Hgb (13.0-17.5) gm/dL Hct (39.0-53.0) % Plt Count (150-450) k/uL Lymphocytes # (1.0-4.8) k/uL PT (9.0-12.0) sec INR (<1.2) Fibrinogen (200-500) mg/dL ABG pH (7.35-7.45) ABG pCO2 (35-45) mmHg ABG pO2 117 H (83-108) mmHg ABG HCO3 (21-25) mmol/L ABG Total CO2 26 H (19-24) mmol/L ABG O2 Saturation 98.8 H (94-97) % ABG Hematocrit (34.0-46.0) % ABG Potassium (3.4-4.5) mmol/L ABG Ionized Calcium (4.5-5.3) mg/dL ABG Glucose (75-99) mg/dL ABG Lactic Acid (0.5-1.6) mmol/L Hemoglobin (13.0-17.5) gm/dL Chloride (98-107) mmol/L Creatinine (0.66-1.25) mg/dL Glucose (74-99) mg/dL POC Glucose (mg/dL) 125 H 156 H (75-99) mg/dL Calcium (8.4-10.2) mg/dL Alkaline Phosphatase (38-126) U/L Total Protein (6.3-8.2) g/dL Albumin (3.5-5.0) g/dL Arterial Blood Potassium (3.4-4.5) mmol/L Arterial Blood Glucose (75-99) mg/dL Crossmatch 05/14/18 05/14/18 05/14/18 Range/Units 17:07 17:10 17:56 RBC 3.56 L (4.30-5.90) m/uL Hgb 10.1 L (13.0-17.5) gm/dL Hct 30.8 L (39.0-53.0) % Plt Count 118 L (150-450) k/uL Lymphocytes # 0.5 L (1.0-4.8) k/uL PT (9.0-12.0) sec INR (<1.2) Fibrinogen (200-500) mg/dL ABG pH (7.35-7.45) ABG pCO2 (35-45) mmHg ABG pO2 (83-108) mmHg ABG HCO3 (21-25) mmol/L ABG Total CO2 (19-24) mmol/L ABG O2 Saturation (94-97) % ABG Hematocrit (34.0-46.0) % ABG Potassium (3.4-4.5) mmol/L ABG Ionized Calcium (4.5-5.3) mg/dL ABG Glucose (75-99) mg/dL ABG Lactic Acid (0.5-1.6) mmol/L Hemoglobin (13.0-17.5) gm/dL Chloride (98-107) mmol/L Creatinine (0.66-1.25) mg/dL Glucose (74-99) mg/dL POC Glucose (mg/dL) 168 H 172 H (75-99) mg/dL Calcium (8.4-10.2) mg/dL Alkaline Phosphatase (38-126) U/L Total Protein (6.3-8.2) g/dL Albumin (3.5-5.0) g/dL Arterial Blood Potassium (3.4-4.5) mmol/L Arterial Blood Glucose (75-99) mg/dL Crossmatch 05/14/18 05/14/18 05/14/18 Range/Units 18:02 19:01 20:01 RBC (4.30-5.90) m/uL Hgb (13.0-17.5) gm/dL Hct (39.0-53.0) % Plt Count (150-450) k/uL Lymphocytes # (1.0-4.8) k/uL PT (9.0-12.0) sec INR (<1.2) Fibrinogen (200-500) mg/dL ABG pH (7.35-7.45) ABG pCO2 (35-45) mmHg ABG pO2 (83-108) mmHg ABG HCO3 (21-25) mmol/L ABG Total CO2 (19-24) mmol/L ABG O2 Saturation 97.6 H (94-97) % ABG Hematocrit (34.0-46.0) % ABG Potassium (3.4-4.5) mmol/L ABG Ionized Calcium (4.5-5.3) mg/dL ABG Glucose (75-99) mg/dL ABG Lactic Acid (0.5-1.6) mmol/L Hemoglobin (13.0-17.5) gm/dL Chloride (98-107) mmol/L Creatinine (0.66-1.25) mg/dL Glucose (74-99) mg/dL POC Glucose (mg/dL) 159 H 140 H (75-99) mg/dL Calcium (8.4-10.2) mg/dL Alkaline Phosphatase (38-126) U/L Total Protein (6.3-8.2) g/dL Albumin (3.5-5.0) g/dL Arterial Blood Potassium (3.4-4.5) mmol/L Arterial Blood Glucose (75-99) mg/dL Crossmatch 05/14/18 05/14/18 05/14/18 Range/Units 20:29 21:00 22:03 RBC 3.33 L (4.30-5.90) m/uL Hgb 9.5 L (13.0-17.5) gm/dL Hct 28.7 L (39.0-53.0) % Plt Count 105 L (150-450) k/uL Lymphocytes # 0.2 L (1.0-4.8) k/uL PT (9.0-12.0) sec INR (<1.2) Fibrinogen (200-500) mg/dL ABG pH (7.35-7.45) ABG pCO2 (35-45) mmHg ABG pO2 (83-108) mmHg ABG HCO3 (21-25) mmol/L ABG Total CO2 (19-24) mmol/L ABG O2 Saturation (94-97) % ABG Hematocrit (34.0-46.0) % ABG Potassium (3.4-4.5) mmol/L ABG Ionized Calcium (4.5-5.3) mg/dL ABG Glucose (75-99) mg/dL ABG Lactic Acid (0.5-1.6) mmol/L Hemoglobin (13.0-17.5) gm/dL Chloride (98-107) mmol/L Creatinine (0.66-1.25) mg/dL Glucose (74-99) mg/dL POC Glucose (mg/dL) 128 H 122 H (75-99) mg/dL Calcium (8.4-10.2) mg/dL Alkaline Phosphatase (38-126) U/L Total Protein (6.3-8.2) g/dL Albumin (3.5-5.0) g/dL Arterial Blood Potassium (3.4-4.5) mmol/L Arterial Blood Glucose (75-99) mg/dL Crossmatch 05/14/18 05/15/18 05/15/18 Range/Units 22:49 00:21 01:03 RBC (4.30-5.90) m/uL Hgb (13.0-17.5) gm/dL Hct (39.0-53.0) % Plt Count (150-450) k/uL Lymphocytes # (1.0-4.8) k/uL PT (9.0-12.0) sec INR (<1.2) Fibrinogen (200-500) mg/dL ABG pH (7.35-7.45) ABG pCO2 (35-45) mmHg ABG pO2 (83-108) mmHg ABG HCO3 (21-25) mmol/L ABG Total CO2 (19-24) mmol/L ABG O2 Saturation (94-97) % ABG Hematocrit (34.0-46.0) % ABG Potassium (3.4-4.5) mmol/L ABG Ionized Calcium (4.5-5.3) mg/dL ABG Glucose (75-99) mg/dL ABG Lactic Acid (0.5-1.6) mmol/L Hemoglobin (13.0-17.5) gm/dL Chloride (98-107) mmol/L Creatinine (0.66-1.25) mg/dL Glucose (74-99) mg/dL POC Glucose (mg/dL) 124 H 130 H 126 H (75-99) mg/dL Calcium (8.4-10.2) mg/dL Alkaline Phosphatase (38-126) U/L Total Protein (6.3-8.2) g/dL Albumin (3.5-5.0) g/dL Arterial Blood Potassium (3.4-4.5) mmol/L Arterial Blood Glucose (75-99) mg/dL Crossmatch 05/15/18 05/15/18 05/15/18 Range/Units 02:00 03:07 04:15 RBC 3.30 L (4.30-5.90) m/uL Hgb 9.2 L (13.0-17.5) gm/dL Hct 28.5 L (39.0-53.0) % Plt Count 105 L (150-450) k/uL Lymphocytes # 0.4 L (1.0-4.8) k/uL PT (9.0-12.0) sec INR (<1.2) Fibrinogen (200-500) mg/dL ABG pH (7.35-7.45) ABG pCO2 (35-45) mmHg ABG pO2 (83-108) mmHg ABG HCO3 (21-25) mmol/L ABG Total CO2 (19-24) mmol/L ABG O2 Saturation (94-97) % ABG Hematocrit (34.0-46.0) % ABG Potassium (3.4-4.5) mmol/L ABG Ionized Calcium (4.5-5.3) mg/dL ABG Glucose (75-99) mg/dL ABG Lactic Acid (0.5-1.6) mmol/L Hemoglobin (13.0-17.5) gm/dL Chloride (98-107) mmol/L Creatinine (0.66-1.25) mg/dL Glucose (74-99) mg/dL POC Glucose (mg/dL) 119 H 125 H (75-99) mg/dL Calcium (8.4-10.2) mg/dL Alkaline Phosphatase (38-126) U/L Total Protein (6.3-8.2) g/dL Albumin (3.5-5.0) g/dL Arterial Blood Potassium (3.4-4.5) mmol/L Arterial Blood Glucose (75-99) mg/dL Crossmatch 05/15/18 05/15/18 05/15/18 Range/Units 04:15 04:15 04:18 RBC (4.30-5.90) m/uL Hgb (13.0-17.5) gm/dL Hct (39.0-53.0) % Plt Count (150-450) k/uL Lymphocytes # (1.0-4.8) k/uL PT (9.0-12.0) sec INR 1.2 H (<1.2) Fibrinogen (200-500) mg/dL ABG pH (7.35-7.45) ABG pCO2 (35-45) mmHg ABG pO2 (83-108) mmHg ABG HCO3 (21-25) mmol/L ABG Total CO2 (19-24) mmol/L ABG O2 Saturation (94-97) % ABG Hematocrit (34.0-46.0) % ABG Potassium (3.4-4.5) mmol/L ABG Ionized Calcium (4.5-5.3) mg/dL ABG Glucose (75-99) mg/dL ABG Lactic Acid (0.5-1.6) mmol/L Hemoglobin (13.0-17.5) gm/dL Chloride 109 H (98-107) mmol/L Creatinine 0.61 L (0.66-1.25) mg/dL Glucose 107 H (74-99) mg/dL POC Glucose (mg/dL) 116 H (75-99) mg/dL Calcium (8.4-10.2) mg/dL Alkaline Phosphatase 32 L (38-126) U/L Total Protein 4.8 L (6.3-8.2) g/dL Albumin 3.0 L (3.5-5.0) g/dL Arterial Blood Potassium (3.4-4.5) mmol/L Arterial Blood Glucose (75-99) mg/dL Crossmatch 05/15/18 05/15/18 05/15/18 Range/Units 05:04 06:52 08:02 RBC (4.30-5.90) m/uL Hgb (13.0-17.5) gm/dL Hct (39.0-53.0) % Plt Count (150-450) k/uL Lymphocytes # (1.0-4.8) k/uL PT (9.0-12.0) sec INR (<1.2) Fibrinogen (200-500) mg/dL ABG pH (7.35-7.45) ABG pCO2 (35-45) mmHg ABG pO2 (83-108) mmHg ABG HCO3 (21-25) mmol/L ABG Total CO2 (19-24) mmol/L ABG O2 Saturation (94-97) % ABG Hematocrit (34.0-46.0) % ABG Potassium (3.4-4.5) mmol/L ABG Ionized Calcium (4.5-5.3) mg/dL ABG Glucose (75-99) mg/dL ABG Lactic Acid (0.5-1.6) mmol/L Hemoglobin (13.0-17.5) gm/dL Chloride (98-107) mmol/L Creatinine (0.66-1.25) mg/dL Glucose (74-99) mg/dL POC Glucose (mg/dL) 113 H 126 H 134 H (75-99) mg/dL Calcium (8.4-10.2) mg/dL Alkaline Phosphatase (38-126) U/L Total Protein (6.3-8.2) g/dL Albumin (3.5-5.0) g/dL Arterial Blood Potassium (3.4-4.5) mmol/L Arterial Blood Glucose (75-99) mg/dL Crossmatch - Imaging and Cardiology Chest x-ray: image reviewed Assessment and Plan (1) Severe aortic valve stenosis Current Visit: Yes Status: Chronic Code(s): I35.0 - NONRHEUMATIC AORTIC ( VALVE) STENOSIS SNOMED Code(s): 70225179 (2) Moderate mitral valve regurgitation Current Visit: Yes Status: Chronic Code(s): I34.0 - NONRHEUMATIC MITRAL ( VALVE) INSUFFICIENCY SNOMED Code(s): 20848723 (3) Chronic atrial fibrillation Current Visit: Yes Status: Chronic Code(s): I48.2 - CHRONIC ATRIAL FIBRILLATION SNOMED Code(s): 238434789 (4) Hypertension Current Visit: Yes Status: Chronic Code(s): I10 - ESSENTIAL (PRIMARY) HYPERTENSION SNOMED Code(s): 43753008 (5) Hyperlipidemia Current Visit: Yes Status: Chronic Code(s): E78.5 - HYPERLIPIDEMIA, UNSPECIFIED SNOMED Code(s): 43143343 (6) Coronary artery disease Current Visit: Yes Status: Chronic Code(s): I25.10 - ATHSCL HEART DISEASE OF [place] CORONARY ARTERY W/O ANG PCTRS SNOMED Code(s): 77077887 (7) Peripheral vascular disease Current Visit: Yes Status: Chronic Code(s): I73.9 - PERIPHERAL VASCULAR DISEASE, UNSPECIFIED SNOMED Code(s): 969642520 (8) History of DVT (deep vein thrombosis) Current Visit: No Status: Resolved Code(s): Z86.718 - PERSONAL HISTORY OF OTHER VENOUS THROMBOSIS AND EMBOLISM SNOMED Code(s): 081193768 (9) BPH (benign prostatic hyperplasia) Current Visit: Yes Status: Chronic Code(s): N40.0 - BENIGN PROSTATIC HYPERPLASIA WITHOUT LOWER URINRY TRACT SYMP SNOMED Code(s): 498112068 (10) COPD (chronic obstructive pulmonary disease) Current Visit: Yes Status: Chronic Code(s): J44.9 - CHRONIC OBSTRUCTIVE PULMONARY DISEASE, UNSPECIFIED SNOMED Code(s): 65774402 (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 Continue aspirin, statin, Plavix, subcu heparin, beta kristopher. Will increase beta kristopher therapy as tolerated. Will start afterload reduction tomorrow. 2. Will add back in Coumadin for anticoagulation once all invasive lines and tubes have been discontinued. 3. Encourage incentive spirometry is 10 times every hour. 4. Increase activity, ambulate as tolerated. PT/OT/cardiac rehab following. 5. Discontinue [place]avon catheter. Connected [place] to continue CVP monitoring. 6. Will give Lasix 20 mg IV push. 7. GI/DVT prophylaxis. 8. Will monitor daily labs and x-rays. 9. Bronchodilators per pulmonology. 10. Continue Proscar, Flomax for BPH. 11. Insulin management per primary care service. 12. Pain control with current medication regimen. 13. More recommendations to follow. Time with Patient: Greater than 30
[2018-05-15] MEDS: ceFAZolin IN SWFI 2 GM/20 ML SYRINGE IVP SCH (08:56)
[2018-05-15] MEDS: HEPARIN SODIUM,PORCINE 5,000 UNIT/ML 1 ML VIAL SQ SCH ×2 (08:57→15:25)
[2018-05-15] MEDS: KETOROLAC 30 MG/ML 1 ML VIAL IVP SCH ×3 (09:00→19:29)
[2018-05-15] MEDS ORDERED: PANTOPRAZOLE 40 MG/10 ML VIAL IVP SCH (09:00)
[2018-05-15 09:15] LABS: Glucose,Whole Blood 162 mg/dL (75-99)
[2018-05-15] MEDS: METOPROLOL TARTRATE 12.5 MG TAB PO SCH (09:16)
[2018-05-15] MEDS: ASPIRIN 325 MG TAB PO SCH (09:16)
[2018-05-15] MEDS: MUPIROCIN 2% OINT 22 GM TUBE NASAL SCH ×2 (09:16→20:50)
[2018-05-15] MEDS: ATORVASTATIN 40 MG TAB PO SCH (09:16)
--- NOTE | 2018-05-15 09:17 | XR ---
EXAMINATION TYPE: XR chest 1V portable DATE OF EXAM: 05/15/2018 COMPARISON: 05/14/2018 HISTORY: Post cardiac surgery TECHNIQUE: Single frontal view of the chest is obtained. FINDINGS: Bilateral consolidation and pleural effusion. Cardiomegaly and diffuse interstitial patter n. 18 NG tube is been removed. There is postsurgical change. Mediastinal drain and Laie-Kavon catheter st able. IMPRESSION: 1. Worsening appearance of the chest suggestive of CHF with bilateral infiltrate and pleural effusion .
[2018-05-15 10:01] LABS: Glucose,Whole Blood 161 mg/dL (75-99)
[2018-05-15 11:03] LABS: Glucose,Whole Blood 130 mg/dL (75-99)
[2018-05-15 12:35] LABS: Glucose,Whole Blood 114 mg/dL (75-99)
[2018-05-15] MEDS: TAMSULOSIN 0.4 MG CAP.ER.24H PO SCH ×2 (12:49→20:50)
[2018-05-15] MEDS: CLOPIDOGREL 75 MG TAB PO SCH (12:49)
--- NOTE | 2018-05-15 13:18 | P.CONS ---
History of Present Illness - Chief Complaint Status post aortic valve replacement - History of Present Illness This is a very pleasant 83-year-old gentleman who has history of chronic stable coronary artery disease, atrial fibrillation on warfarin, hypertension and aortic valve stenosis. Patient has had aortic valve stenosis for many years and had been asymptomatic. But since recently he started to experiencing decreased exercise tolerance, fatigue for which he underwent recent stress test that he couldn't complete. He is known to have stable lesion on proximal LAD. His recent echo showed EF of 40-45%. Due to worsening symptoms depressed EF he was referred to us CTS for evaluation of his aortic stenosis and yesterday he underwent aortic valve replacement with bovine bioprosthetic valve with exclusion of left appendage and intraoperative IOANA. He is now postoperative day 2 he is recovering well. He does not have any particular shortness of breath nausea vomiting. No chest pain except with some discomfort from the incision site but otherwise feeling quite well. His currently getting IV calcium channel kristopher, insulin drip, plan to be restarted on warfarin once cleared by surgery. He has been using his incentive spirometer without any issues. He is been slowly increasing diet and activity level Chest x-ray showed postsurgical changes and very mild basilar atelectasis Review of Systems REVIEW OF SYSTEMS: CONSTITUTIONAL: No fever or chills HEENT: No changes in vision or voice CARDIOVASCULAR: no chest pain or abnormal heart beats, or any swelling in ankles or feet. RESPIRATORY: No wheezing or coughing. GASTROINTESTINAL: No abdominal pain, no nausea no vomiting no constipation or diarrhea GENITOURINARY: no any urinary urgency, frequency or burning, and there has been no blood in her urine. no flank pain. MUSCULOSKELETAL: notes full range of motion of all her joints without pain or swelling. NEUROLOGICAL: , no headache. no vision changes, or fainting. No numbness or tingling. Skin: Without rashes or cyanosis Psychiatric: Awake, alert oriented 3 with normal mood Past Medical History Past Medical History: Atrial Fibrillation, Deep Vein Thrombosis (DVT), Hyperlipidemia, Hypertension, Osteoarthritis (OA), Prostate Disorder Additional Past Medical History / Comment(s): Aortic Stenosis; DVT leg 1999; enl. prostate History of Any Multi-Drug Resistant Organisms: None Reported Past Surgical History: Heart Catheterization, Orthopedic Surgery, Prostate Surgery Additional Past Surgical History / Comment(s): Matthew. hip replacement; R Knee replaced; Prostate surg., cataracts removed Past Anesthesia/Blood Transfusion Reactions: No Reported Reaction Smoking Status: Former smoker - Past Family History Mother Family Medical History: No Reported History Medications and Allergies Home Medications Medication Instructions Recorded Confirmed Type Enalapril [Vasotec] 5 mg PO DAILY 09/22/14 05/14/18 History Hydrochlorothiazide [Hydrodiuril] 12.5 mg PO DAILY 09/22/14 05/14/18 History Simvastatin [Zocor] 10 mg PO HS 09/22/14 05/14/18 History Warfarin [Coumadin] 2.5 mg PO [id number] 09/22/14 05/14/18 History Warfarin [Coumadin] 3.75 mg PO MOTH 09/22/14 05/14/18 History Methylcellulose (with Sugar) 1 cap PO BID 09/29/14 05/14/18 History [Citrucel] Tamsulosin [Flomax] 0.4 mg PO DAILY #14 cap 09/30/14 05/14/18 Rx Metoprolol Succinate [Toprol XL] 25 mg PO BID 10/10/17 05/14/18 History Finasteride [Proscar] 5 mg PO HS 04/08/18 05/14/18 History Aspirin 325 mg PO DAILY 05/14/18 05/14/18 History Allergies Allergy/AdvReac Type Severity Reaction Status Date / Time No Known Allergies Allergy Verified 05/14/18 14:16 Physical Exam Vitals: Vital Signs Temp Pulse Resp BP Pulse Ox 05/15/18 13:00 82 23 85/47 97 05/15/18 12:00 97.8 F 77 17 96/52 95 05/15/18 11:43 71 05/15/18 11:29 74 05/15/18 11:00 77 16 137/70 98 05/15/18 10:00 81 17 137/70 99 05/15/18 09:00 91 15 97 05/15/18 08:00 64 15 116/60 99 05/15/18 07:57 72 05/15/18 07:44 70 05/15/18 07:30 65 29 H 116/60 100 05/15/18 07:00 68 16 100 05/15/18 06:30 77 11 L 90 L 05/15/18 06:00 70 13 94 L 05/15/18 05:30 71 16 92 L 08/15/18 05:00 69 10 L 94 L 15/18 04:30 69 20 94 L 15/18 04:00 98.6 F 69 18 94 L 15/18 03:30 69 19 94 L 1518 03:00 70 17 98 15/18 02:30 69 17 98 1518 02:00 69 16 99 1518 01:30 69 16 97 1518 01:00 76 16 95 1518 00:30 75 19 98 15/18 00:00 98.1 F 75 14 99 14/18 23:30 69 15 98 14/18 23:00 69 14 98 1418 22:30 64 15 98 1418 22:06 69 14 98 1418 22:00 70 16 98 1418 21:30 69 17 98 14/18 21:00 73 18 99 1418 20:30 69 14 100 1418 20:00 97.5 F L 70 16 100 14/18 19:48 73 14/18 19:41 98 14/18 19:35 69 14/18 19:30 69 14 100 14/18 19:00 69 16 100 14/18 18:30 69 17 100 14/18 18:20 70 19 100 14/18 18:00 69 18 99 14/18 17:40 69 17 98 14/18 17:20 69 18 97 14/18 17:00 69 18 98 14/18 16:40 69 18 97 14/18 16:20 69 22 98 14/18 16:00 69 16 98 14/18 15:53 65 14/18 15:40 69 16 97 14/18 15:38 69 14/18 15:20 71 18 100 14/18 15:10 69 12 100 14/18 15:01 96.3 F L 63 16 126/59 100 14/18 15:00 63 16 100 14/18 14:50 63 16 100 14/18 14:40 77 12 100 14/18 14:30 70 11 L 100 05/14/18 13:45 100 Intake and Output 05/14/18 05/15/18 05/15/18 22:59 06:59 14:59 Intake Total 753.087 715.648 292.303 Output Total 623 575 245 Balance 130.087 140.648 47.303 Intake: IV 603 631 279 0.9NS Cardiac Output 90 100 20 0.9NS Pressure Bag 113 81 39 ACETAMINOPHEN IV (For NPO 100 ) 1,000 mg In Empty Bag 1 bag @ 400 mls/hr IVPB Q6HR DIDIER Rx#:[id number] Lactated Ringers 1,000 ml 300 450 220 @ 20 mls/hr IV .Q24H DIDIER Rx#:[id number] Intake, IV Titration 36.087 84.648 13.303 Amount Clevidipine Butyrate 25 16.433 15.833 mg In Empty Bag 1 bag @ 1 MG/HR 2 mls/hr IV .Q24H DIDIER Rx#:[id number] Insulin Regular 100 unit 19.654 18.815 13.303 In Sodium Chloride 0.9% 100 ml @ Per Protocol IV .Q0M DIDEIR Rx#:[id number] ceFAZolin 2,000 mg In 50 Sodium Chloride 0.9% 30 ml @ Per Protocol IVPB ONCE ONE Rx#:[id number] Blood Product 114 Pooled Cryoprecipitate 114 Unit [id number] Output: Chest Tube Drainage [address] X 2 238 230 70 Urine 385 345 175 Other: Voiding Method Indwelling Catheter Indwelling Catheter Weight 95.254 kg 98.7 kg ABP, PAP, CO, CI - Last 8 Hours Arterial Blood Pressure 85/35 Arterial Blood Pressure 83/35 Arterial Blood Pressure 114/47 Arterial Blood Pressure 131/52 Arterial Blood Pressure 131/48 Arterial Blood Pressure 128/45 Arterial Blood Pressure 114/45 Arterial Blood Pressure 124/48 Arterial Blood Pressure 130/54 Pulmonary Artery Pressure 18/10 Pulmonary Artery Pressure 20/11 Pulmonary Artery Pressure 20/12 Pulmonary Artery Pressure 14/7 Pulmonary Artery Pressure 18/11 Pulmonary Artery Pressure 18/12 Pulmonary Artery Pressure 21/14 Pulmonary Artery Pressure 26/21 Cardiac Output 4.9 Cardiac Output 4.9 Cardiac Output 5.5 Cardiac Output 5.5 Cardiac Index 2.3 Vital Signs: I have reviewed the vital signs. GENERAL: Well-nourished, Well-developed , no apparent distress, cooperative Eyes: PERRL, extraoculry movements intact, clear conjunctiva Head: : Atraumatic external nose and ears, oropharyngeal mucosa is moist without lesions or exudates Neck: Symmetric, trachea midline, No thyromegaly, no masses or neck vain pulsation, no neck rigidity CVS: Irregularly irregular, +S1/S2, No murmurs or gallops. Peripheral pulses 2+ and equal in all extremities. RESP: Unlabored respiratory effort. Clear to auscultation bilaterally. Good basilar inspiratory crackles Abdomen: Bowel sounds present in all 4 quadrants, Soft to palpation, Nontender/ Nondistended, No hepatosplenomegaly, no hernias or masses, no CVA tnderness Musculoskeletal: Extremities w/o deformity, No cyanosis or clubbing, no joint swelling Skin: Warm, Dry. No rashes or lesions Neuro: skilled helper II-XII grossly intact, motor strenght 5/5 i upper and lower extremities, no clonus, patellar DTRs 2+ and sympetrical Psych: Awake, Alert, & Oriented (AAO) x3 Appropriate mood and affect Results CBC & Chem 7: 05/15/18 04:15 05/15/18 04:15 Labs: Abnormal Lab Results - Last 24 Hours (Table) 05/07/18 05/14/18 05/14/18 Range/Units 09:20 13:34 13:34 RBC 3.10 L (4.30-5.90) m/uL Hgb 8.7 L D (13.0-17.5) gm/dL Hct 26.7 L (39.0-53.0) % Plt Count 103 L (150-450) k/uL Lymphocytes # 0.3 L (1.0-4.8) k/uL PT 14.1 H (9.0-12.0) sec INR 1.5 H (<1.2) Fibrinogen 160 L (200-500) mg/dL ABG pO2 (83-108) mmHg ABG Total CO2 (19-24) mmol/L ABG O2 Saturation (94-97) % ABG Hematocrit (34.0-46.0) % ABG Ionized Calcium (4.5-5.3) mg/dL ABG Glucose (75-99) mg/dL ABG Lactic Acid (0.5-1.6) mmol/L Hemoglobin (13.0-17.5) gm/dL Chloride (98-107) mmol/L Creatinine (0.66-1.25) mg/dL Glucose (74-99) mg/dL POC Glucose (mg/dL) (75-99) mg/dL Calcium (8.4-10.2) mg/dL Alkaline Phosphatase (38-126) U/L Total Protein (6.3-8.2) g/dL Albumin (3.5-5.0) g/dL Arterial Blood Glucose (75-99) mg/dL Crossmatch See Detail 05/14/18 05/14/18 05/14/18 Range/Units 13:35 14:25 14:26 RBC 3.16 L (4.30-5.90) m/uL Hgb 9.2 L (13.0-17.5) gm/dL Hct 27.1 L (39.0-53.0) % Plt Count 85 L (150-450) k/uL Lymphocytes # 0.5 L (1.0-4.8) k/uL PT (9.0-12.0) sec INR (<1.2) Fibrinogen (200-500) mg/dL ABG pO2 153 H (83-108) mmHg ABG Total CO2 25 H (19-24) mmol/L ABG O2 Saturation 99.2 H (94-97) % ABG Hematocrit 28 L (34.0-46.0) % ABG Ionized Calcium 4.2 L (4.5-5.3) mg/dL ABG Glucose 125 H (75-99) mg/dL ABG Lactic Acid 1.7 H (0.5-1.6) mmol/L Hemoglobin 9.1 L (13.0-17.5) gm/dL Chloride (98-107) mmol/L Creatinine (0.66-1.25) mg/dL Glucose (74-99) mg/dL POC Glucose (mg/dL) 115 H (75-99) mg/dL Calcium (8.4-10.2) mg/dL Alkaline Phosphatase (38-126) U/L Total Protein (6.3-8.2) g/dL Albumin (3.5-5.0) g/dL Arterial Blood Glucose 125 H (75-99) mg/dL Crossmatch 05/14/18 05/14/18 05/14/18 Range/Units 14:26 14:26 15:00 RBC (4.30-5.90) m/uL Hgb (13.0-17.5) gm/dL Hct (39.0-53.0) % Plt Count (150-450) k/uL Lymphocytes # (1.0-4.8) k/uL PT 13.9 H (9.0-12.0) sec INR 1.5 H (<1.2) Fibrinogen (200-500) mg/dL ABG pO2 117 H (83-108) mmHg ABG Total CO2 26 H (19-24) mmol/L ABG O2 Saturation 98.8 H (94-97) % ABG Hematocrit (34.0-46.0) % ABG Ionized Calcium (4.5-5.3) mg/dL ABG Glucose (75-99) mg/dL ABG Lactic Acid (0.5-1.6) mmol/L Hemoglobin (13.0-17.5) gm/dL Chloride 110 H (98-107) mmol/L Creatinine 0.60 L (0.66-1.25) mg/dL Glucose 105 H (74-99) mg/dL POC Glucose (mg/dL) (75-99) mg/dL Calcium 8.3 L (8.4-10.2) mg/dL Alkaline Phosphatase 26 L (38-126) U/L Total Protein 4.5 L (6.3-8.2) g/dL Albumin 2.9 L (3.5-5.0) g/dL Arterial Blood Glucose (75-99) mg/dL Crossmatch 05/14/18 05/14/18 05/14/18 Range/Units 15:00 16:03 17:07 RBC (4.30-5.90) m/uL Hgb (13.0-17.5) gm/dL Hct (39.0-53.0) % Plt Count (150-450) k/uL Lymphocytes # (1.0-4.8) k/uL PT (9.0-12.0) sec INR (<1.2) Fibrinogen (200-500) mg/dL ABG pO2 (83-108) mmHg ABG Total CO2 (19-24) mmol/L ABG O2 Saturation (94-97) % ABG Hematocrit (34.0-46.0) % ABG Ionized Calcium (4.5-5.3) mg/dL ABG Glucose (75-99) mg/dL ABG Lactic Acid (0.5-1.6) mmol/L Hemoglobin (13.0-17.5) gm/dL Chloride (98-107) mmol/L Creatinine (0.66-1.25) mg/dL Glucose (74-99) mg/dL POC Glucose (mg/dL) 125 H 156 H 168 H (75-99) mg/dL Calcium (8.4-10.2) mg/dL Alkaline Phosphatase (38-126) U/L Total Protein (6.3-8.2) g/dL Albumin (3.5-5.0) g/dL Arterial Blood Glucose (75-99) mg/dL Crossmatch 05/14/18 05/14/18 05/14/18 Range/Units 17:10 17:56 18:02 RBC 3.56 L (4.30-5.90) m/uL Hgb 10.1 L (13.0-17.5) gm/dL Hct 30.8 L (39.0-53.0) % Plt Count 118 L (150-450) k/uL Lymphocytes # 0.5 L (1.0-4.8) k/uL PT (9.0-12.0) sec INR (<1.2) Fibrinogen (200-500) mg/dL ABG pO2 (83-108) mmHg ABG Total CO2 (19-24) mmol/L ABG O2 Saturation 97.6 H (94-97) % ABG Hematocrit (34.0-46.0) % ABG Ionized Calcium (4.5-5.3) mg/dL ABG Glucose (75-99) mg/dL ABG Lactic Acid (0.5-1.6) mmol/L Hemoglobin (13.0-17.5) gm/dL Chloride (98-107) mmol/L Creatinine (0.66-1.25) mg/dL Glucose (74-99) mg/dL POC Glucose (mg/dL) 172 H (75-99) mg/dL Calcium (8.4-10.2) mg/dL Alkaline Phosphatase (38-126) U/L Total Protein (6.3-8.2) g/dL Albumin (3.5-5.0) g/dL Arterial Blood Glucose (75-99) mg/dL Crossmatch 05/14/18 05/14/18 05/14/18 Range/Units 19:01 20:01 20:29 RBC 3.33 L (4.30-5.90) m/uL Hgb 9.5 L (13.0-17.5) gm/dL Hct 28.7 L (39.0-53.0) % Plt Count 105 L (150-450) k/uL Lymphocytes # 0.2 L (1.0-4.8) k/uL PT (9.0-12.0) sec INR (<1.2) Fibrinogen (200-500) mg/dL ABG pO2 (83-108) mmHg ABG Total CO2 (19-24) mmol/L ABG O2 Saturation (94-97) % ABG Hematocrit (34.0-46.0) % ABG Ionized Calcium (4.5-5.3) mg/dL ABG Glucose (75-99) mg/dL ABG Lactic Acid (0.5-1.6) mmol/L Hemoglobin (13.0-17.5) gm/dL Chloride (98-107) mmol/L Creatinine (0.66-1.25) mg/dL Glucose (74-99) mg/dL POC Glucose (mg/dL) 159 H 140 H (75-99) mg/dL Calcium (8.4-10.2) mg/dL Alkaline Phosphatase (38-126) U/L Total Protein (6.3-8.2) g/dL Albumin (3.5-5.0) g/dL Arterial Blood Glucose (75-99) mg/dL Crossmatch 05/14/18 05/14/18 05/14/18 Range/Units 21:00 22:03 22:49 RBC (4.30-5.90) m/uL Hgb (13.0-17.5) gm/dL Hct (39.0-53.0) % Plt Count (150-450) k/uL Lymphocytes # (1.0-4.8) k/uL PT (9.0-12.0) sec INR (<1.2) Fibrinogen (200-500) mg/dL ABG pO2 (83-108) mmHg ABG Total CO2 (19-24) mmol/L ABG O2 Saturation (94-97) % ABG Hematocrit (34.0-46.0) % ABG Ionized Calcium (4.5-5.3) mg/dL ABG Glucose (75-99) mg/dL ABG Lactic Acid (0.5-1.6) mmol/L Hemoglobin (13.0-17.5) gm/dL Chloride (98-107) mmol/L Creatinine (0.66-1.25) mg/dL Glucose (74-99) mg/dL POC Glucose (mg/dL) 128 H 122 H 124 H (75-99) mg/dL Calcium (8.4-10.2) mg/dL Alkaline Phosphatase (38-126) U/L Total Protein (6.3-8.2) g/dL Albumin (3.5-5.0) g/dL Arterial Blood Glucose (75-99) mg/dL Crossmatch 05/15/18 05/15/18 05/15/18 Range/Units 00:21 01:03 02:00 RBC (4.30-5.90) m/uL Hgb (13.0-17.5) gm/dL Hct (39.0-53.0) % Plt Count (150-450) k/uL Lymphocytes # (1.0-4.8) k/uL PT (9.0-12.0) sec INR (<1.2) Fibrinogen (200-500) mg/dL ABG pO2 (83-108) mmHg ABG Total CO2 (19-24) mmol/L ABG O2 Saturation (94-97) % ABG Hematocrit (34.0-46.0) % ABG Ionized Calcium (4.5-5.3) mg/dL ABG Glucose (75-99) mg/dL ABG Lactic Acid (0.5-1.6) mmol/L Hemoglobin (13.0-17.5) gm/dL Chloride (98-107) mmol/L Creatinine (0.66-1.25) mg/dL Glucose (74-99) mg/dL POC Glucose (mg/dL) 130 H 126 H 119 H (75-99) mg/dL Calcium (8.4-10.2) mg/dL Alkaline Phosphatase (38-126) U/L Total Protein (6.3-8.2) g/dL Albumin (3.5-5.0) g/dL Arterial Blood Glucose (75-99) mg/dL Crossmatch 05/15/18 05/15/18 05/15/18 Range/Units 03:07 04:15 04:15 RBC 3.30 L (4.30-5.90) m/uL Hgb 9.2 L (13.0-17.5) gm/dL Hct 28.5 L (39.0-53.0) % Plt Count 105 L (150-450) k/uL Lymphocytes # 0.4 L (1.0-4.8) k/uL PT (9.0-12.0) sec INR 1.2 H (<1.2) Fibrinogen (200-500) mg/dL ABG pO2 (83-108) mmHg ABG Total CO2 (19-24) mmol/L ABG O2 Saturation (94-97) % ABG Hematocrit (34.0-46.0) % ABG Ionized Calcium (4.5-5.3) mg/dL ABG Glucose (75-99) mg/dL ABG Lactic Acid (0.5-1.6) mmol/L Hemoglobin (13.0-17.5) gm/dL Chloride (98-107) mmol/L Creatinine (0.66-1.25) mg/dL Glucose (74-99) mg/dL POC Glucose (mg/dL) 125 H (75-99) mg/dL Calcium (8.4-10.2) mg/dL Alkaline Phosphatase (38-126) U/L Total Protein (6.3-8.2) g/dL Albumin (3.5-5.0) g/dL Arterial Blood Glucose (75-99) mg/dL Crossmatch 05/15/18 05/15/18 05/15/18 Range/Units 04:15 04:18 05:04 RBC (4.30-5.90) m/uL Hgb (13.0-17.5) gm/dL Hct (39.0-53.0) % Plt Count (150-450) k/uL Lymphocytes # (1.0-4.8) k/uL PT (9.0-12.0) sec INR (<1.2) Fibrinogen (200-500) mg/dL ABG pO2 (83-108) mmHg ABG Total CO2 (19-24) mmol/L ABG O2 Saturation (94-97) % ABG Hematocrit (34.0-46.0) % ABG Ionized Calcium (4.5-5.3) mg/dL ABG Glucose (75-99) mg/dL ABG Lactic Acid (0.5-1.6) mmol/L Hemoglobin (13.0-17.5) gm/dL Chloride 109 H (98-107) mmol/L Creatinine 0.61 L (0.66-1.25) mg/dL Glucose 107 H (74-99) mg/dL POC Glucose (mg/dL) 116 H 113 H (75-99) mg/dL Calcium (8.4-10.2) mg/dL Alkaline Phosphatase 32 L (38-126) U/L Total Protein 4.8 L (6.3-8.2) g/dL Albumin 3.0 L (3.5-5.0) g/dL Arterial Blood Glucose (75-99) mg/dL Crossmatch 05/15/18 05/15/18 05/15/18 Range/Units 06:52 08:02 09:13 RBC (4.30-5.90) m/uL Hgb (13.0-17.5) gm/dL Hct (39.0-53.0) % Plt Count (150-450) k/uL Lymphocytes # (1.0-4.8) k/uL PT (9.0-12.0) sec INR (<1.2) Fibrinogen (200-500) mg/dL ABG pO2 (83-108) mmHg ABG Total CO2 (19-24) mmol/L ABG O2 Saturation (94-97) % ABG Hematocrit (34.0-46.0) % ABG Ionized Calcium (4.5-5.3) mg/dL ABG Glucose (75-99) mg/dL ABG Lactic Acid (0.5-1.6) mmol/L Hemoglobin (13.0-17.5) gm/dL Chloride (98-107) mmol/L Creatinine (0.66-1.25) mg/dL Glucose (74-99) mg/dL POC Glucose (mg/dL) 126 H 134 H 162 H (75-99) mg/dL Calcium (8.4-10.2) mg/dL Alkaline Phosphatase (38-126) U/L Total Protein (6.3-8.2) g/dL Albumin (3.5-5.0) g/dL Arterial Blood Glucose (75-99) mg/dL Crossmatch 05/15/18 05/15/18 05/15/18 Range/Units 09:59 10:59 12:16 RBC (4.30-5.90) m/uL Hgb (13.0-17.5) gm/dL Hct (39.0-53.0) % Plt Count (150-450) k/uL Lymphocytes # (1.0-4.8) k/uL PT (9.0-12.0) sec INR (<1.2) Fibrinogen (200-500) mg/dL ABG pO2 (83-108) mmHg ABG Total CO2 (19-24) mmol/L ABG O2 Saturation (94-97) % ABG Hematocrit (34.0-46.0) % ABG Ionized Calcium (4.5-5.3) mg/dL ABG Glucose (75-99) mg/dL ABG Lactic Acid (0.5-1.6) mmol/L Hemoglobin (13.0-17.5) gm/dL Chloride (98-107) mmol/L Creatinine (0.66-1.25) mg/dL Glucose (74-99) mg/dL POC Glucose (mg/dL) 161 H 130 H 114 H (75-99) mg/dL Calcium (8.4-10.2) mg/dL Alkaline Phosphatase (38-126) U/L Total Protein (6.3-8.2) g/dL Albumin (3.5-5.0) g/dL Arterial Blood Glucose (75-99) mg/dL Crossmatch Abdominal x-ray: report reviewed, image reviewed Assessment and Plan Plan: 1. Symptomatic aortic stenosis status post valve replacement the bioprosthetic valve Usual postoperative care by surgery Increase activity and diet as per surgery Incentive spirometer 2. Hypertension Blood pressure has been stable Adjustment of medications as per primary service 3. Chronic systolic congestive heart failure Patient appears euvolemic and compensated 4. Chronic coronary artery disease Aspirin continued as long as as well as beta kristopher 5. Chronic atrial fibrillation Warfarin restarted ventricular primary service
[2018-05-15 13:30] LABS: Glucose,Whole Blood 197 mg/dL (75-99)
[2018-05-15] MEDS ORDERED: HYDROcodone/APAP 5-325MG 1 EACH TAB PO PRN (13:31)
[2018-05-15] MEDS ORDERED: MAGNESIUM HYDROXIDE 2,400 MG/10 ML CUP PO PRN (13:32)
[2018-05-15] MEDS ORDERED: BISACODYL 10 MG SUPP RECTAL PRN (13:32)
[2018-05-15 13:38] VITALS: BMI 28.7
[2018-05-15 14:25] LABS: Glucose,Whole Blood 189 mg/dL (75-99)
[2018-05-15] MEDS: ALBUMIN HUMAN 5% 250 ML in EMPTY BAG 1 BAG IVPB PRN ×2 (14:29→15:23)
[2018-05-15] MEDS: CLEVIDIPINE BUTYRATE 25 MG in EMPTY BAG 1 BAG IV SCH (15:13)
[2018-05-15] MEDS: LACTATED RINGERS 1,000 ML IV SCH (15:24)
[2018-05-15 15:36] LABS: Glucose,Whole Blood 141 mg/dL (75-99)
[2018-05-15 17:36] LABS: Glucose,Whole Blood 140 mg/dL (75-99)
[2018-05-15] MEDS: INSULIN ASPART 100 UNIT/ML 1 ML 10 ML VIAL SQ SCH ×2 (17:48→20:59)
[2018-05-15] MEDS ORDERED: TAMSULOSIN 0.4 MG CAP.ER.24H PO SCH (18:30)
--- NOTE | 2018-05-15 20:02 | CONS ---
CONSULTATION This patient is seen in postop cardiac evaluation. The patient's medical records reviewed. This patient was recently evaluated and was found to have a severe aortic stenosis. Patient was found to have some disease in the LAD. The FFR was done. FFR was normal. In view of that, the patient was advised an aortic valve replacement. The patient underwent aortic valve replacement without any problem. The patient remains hemodynamically stable. He ambulated in the hallway today and he is extubated. The patient remains in normal sinus rhythm. PAST MEDICAL HISTORY: Includes a prior history of atrial fibrillation, hypertension, prostate disorder, orthopedic surgery and prostate surgery. HOME MEDICATIONS: Include: 1. Coumadin. 2. Flomax. 3. Metoprolol 25 mg b.i.d. 4. Baby aspirin once a day and. 5. Vasotec 5 mg daily. PHYSICAL EXAMINATION: At present reveals patient to be afebrile. Heart rate is 70 per minute, blood pressure 137/70 mmHg. Head/ENT is negative. Neck is supple. There is no increase in jugular venous pressure. Both the carotid pulses are felt. There is no bruit. Chest is symmetrical. HEART: The PMI is not felt. First and second heart sounds are normal. Lungs reveal bilateral scattered wheezes. Abdomen is soft. EXTREMITIES: Peripheral pulses are 2+. EKG shows a normal sinus rhythm without any acute ischemic changes. The patient's hemoglobin is 9.2. Electrolytes are normal. Creatinine is 0.61. IMPRESSION: We will continue the current medications. MMODL / IJN: [id number] /
[2018-05-15] MEDS: FINASTERIDE 5 MG TAB PO SCH (20:50)
[2018-05-15] MEDS: SENNOSIDES-DOCUSATE SODIUM 1 EACH TAB PO SCH (20:50)
[2018-05-15 20:55] LABS: Glucose,Whole Blood 164 mg/dL (75-99)
[2018-05-16] MEDS: HEPARIN SODIUM,PORCINE 5,000 UNIT/ML 1 ML VIAL SQ SCH ×4 (00:16→23:35)
[2018-05-16] MEDS: METOPROLOL TARTRATE 12.5 MG TAB PO SCH ×3 (00:16→21:08)
[2018-05-16] MEDS: KETOROLAC 30 MG/ML 1 ML VIAL IVP SCH ×2 (00:17→06:47)
[2018-05-16 02:46] LABS: Glucose,Whole Blood 140 mg/dL (75-99)
[2018-05-16 04:57] LABS: Ionized Calcium 4.8 mg/dL (4.5-5.3)
[2018-05-16 05:05] LABS: ALT 25 U/L (21-72); AST 28 U/L (17-59); Albumin 3.2 g/dL (3.5-5.0); Alkaline Phosphatase 32 U/L (38-126); Anion Gap 8 mmol/L; Blood Urea Nitrogen 23 mg/dL (9-20); Calcium 8.4 mg/dL (8.4-10.2); Carbon Dioxide 22 mmol/L (22-30); Chloride 104 mmol/L (98-107); Glucose 127 mg/dL (74-99); Magnesium 2.2 mg/dL (1.6-2.3); Potassium 4.1 mmol/L (3.5-5.1); Sodium 134 mmol/L (137-145); Total Bilirubin 0.8 mg/dL (0.2-1.3); Total Protein 5.1 g/dL (6.3-8.2)
[2018-05-16 05:21] LABS: Basophils % (A) 0 %; Eosinophils # (A) 0.1 k/uL (0-0.7); Eosinophils % (A) 1 %; HCT 23.9 % (39.0-53.0); HGB 7.9 gm/dL (13.0-17.5); Lymphocytes # (A) 0.5 k/uL (1.0-4.8); Lymphocytes % (A) 8 %; MCH 28.2 pg (25.0-35.0); MCHC 33.1 g/dL (31.0-37.0); Monocytes # (A) 0.4 k/uL (0-1.0); Monocytes % (A) 6 %; Neutrophils # (A) 5.2 k/uL (1.3-7.7); Neutrophils % (A) 84 %; RBC 2.81 m/uL (4.30-5.90); RDW 14.8 % (11.5-15.5); WBC 6.2 k/uL (3.8-10.6)
[2018-05-16 05:36] LABS: Platelet Count 80 k/uL (150-450)
[2018-05-16 07:24] LABS: Glucose,Whole Blood 136 mg/dL (75-99)
[2018-05-16] MEDS: IPRATROPIUM-ALBUTEROL 3 ML NEB INHALATION SCH ×4 (07:48→20:02)
--- NOTE | 2018-05-16 08:26 | P.PN ---
Subjective Progress Note Date: 05/16/18 Principal diagnosis: Status post aortic valve replacement for aortic stenosis Progress note dated 05/15/2018 This is an 83-year-old gentleman who is postop day #1, status post aortic valve placement and excision of left atrial appendage for severe aortic stenosis. The patient was successfully extubated within 4 hours. The patient also has a history of mitral valve regurgitation chronic atrial fibrillation nicotine dependence anemia secondary to blood loss from the surgery, systolic dysfunction with an ejection fraction of 40-45% stable CAD hypertension hyperlipidemia BPH. Currently, the patient is not on any supplemental oxygen. He is Receiving IV cleviprex at 2 mg per hour. He is also on an insulin drip at 2.5 units per hour and lactated Ringer's IV at 50 mL an hour. The patient seemed be doing reasonably well. Certainly has pain at the surgical site. He denies any significant cough or wheezing. He is not practically short of breath. Denies any chest pain or chest discomfort other than surgical site pain. The patient's working on his incentive spirometer. As I mentioned above , he was able to be weaned and extubated within 4 hours. Progress note dated 05/16/2018 83-year-old male, postop day #2, status post aortic valve replacement and excision of left atrial appendage for severe aortic stenosis. The patient was successfully extubated within 4 hour time limit. The patient has a history of mitral valve regurgitation, chronic atrial fibrillation, nicotine dependence, anemia, systolic dysfunction with an ejection fraction of 40-45%, CAD, hypertension, hyperlipidemia and BPH. Currently, the patient is not receiving any supplemental oxygen. The IV is lactated Ringer's at 20 mL an hour. The patient is in atrial fibrillation with controlled ventricular response rate. In addition, the patient is able to get between 750 to 1000 mL on incentive spirometer. Currently, the patient does not have any complaints. Denies any chest pain or chest discomfort. He denies any shortness of breath cough wheezing phlegm production or hemoptysis. There is neither fever or chills or nausea vomiting or diarrhea. Objective - Vital Signs Vital signs: Vital Signs Temp 97.8 F 05/16/18 04:00 Pulse 100 05/16/18 08:03 Resp 20 05/16/18 07:00 BP 87/46 05/16/18 07:00 Pulse Ox 92 L 05/16/18 07:00 Intake & Output 05/15/18 05/16/18 05/16/18 18:59 06:59 18:59 Intake Total 7003.215 5996 36 Output Total 405 505 25 Balance 658.683 527 11 Weight 98.7 kg 95.5 kg Intake: IV 449 432 36 0.9NS Cardiac Output 20 0.9NS Pressure Bag 69 72 6 Lactated Ringers 1,000 ml 360 360 30 @ 20 mls/hr IV .Q24H [facility] Rx#:[id number] Intake, IV Titration 614.683 Amount ACETAMINOPHEN IV (For NPO 100 ) 1,000 mg In Empty Bag 1 bag @ 400 mls/hr IVPB Q6HR [facility] Rx#:[id number] Albumin Human 5% 250 ml 500 In Empty Bag 1 bag @ 250 mls/hr IVPB Q1HR PRN Rx#: [id number] Insulin Regular 100 unit 14.683 In Sodium Chloride 0.9% 100 ml @ Per Protocol IV .Q0M [facility] Rx#:[id number] Oral 600 Output: Chest Tube Drainage [address] X 2 110 130 0 Urine 295 375 25 Other: Voiding Method Indwelling Catheter Indwelling Catheter ABP, PAP, CO, CI - Last Documented Arterial Blood Pressure 118/45 Pulmonary Artery Pressure 18/10 Cardiac Output 4.9 Cardiac Index 2.3 - Exam No acute distress, oriented 3. Not requiring supplemental oxygen. HEENT examination is grossly unremarkable. Mucous membranes are moist. No oral lesions. Neck supple. Full range of motion. No adenopathy thyromegaly or neck vein distention. Cardiovascular examination reveals regular rhythm rate. S1-S2 normal. No S3 or S4. No discernible murmur noted. Heart sounds are distant. Lungs reveal improving bilateral breath sounds. Rhonchi are much less significant. No crackles or wheezes. Breath sounds equal. He is able to take deeper breaths today. Abdomen soft bowel sounds are heard. No masses or tenderness. Extremities are intact. No cyanosis clubbing or edema. Skin is without rash or lesion. Neurologic examination is brief but nonfocal. - Labs CBC & Chem 7: 05/16/18 04:40 05/16/18 04:40 Labs: Abnormal Lab Results - Last 24 Hours (Table) 05/15/18 05/15/18 05/15/18 Range/Units 09:13 09:59 10:59 RBC (4.30-5.90) m/uL Hgb (13.0-17.5) gm/dL Hct (39.0-53.0) % Plt Count (150-450) k/uL Lymphocytes # (1.0-4.8) k/uL Sodium (137-145) mmol/L BUN (9-20) mg/dL Glucose (74-99) mg/dL POC Glucose (mg/dL) 162 H 161 H 130 H (75-99) mg/dL Alkaline Phosphatase (38-126) U/L Total Protein (6.3-8.2) g/dL Albumin (3.5-5.0) g/dL 05/15/18 05/15/18 05/15/18 Range/Units 12:16 13:28 14:23 RBC (4.30-5.90) m/uL Hgb (13.0-17.5) gm/dL Hct (39.0-53.0) % Plt Count (150-450) k/uL Lymphocytes # (1.0-4.8) k/uL Sodium (137-145) mmol/L BUN (9-20) mg/dL Glucose (74-99) mg/dL POC Glucose (mg/dL) 114 H 197 H 189 H (75-99) mg/dL Alkaline Phosphatase (38-126) U/L Total Protein (6.3-8.2) g/dL Albumin (3.5-5.0) g/dL 05/15/18 05/15/18 05/15/18 Range/Units 15:34 17:34 20:54 RBC (4.30-5.90) m/uL Hgb (13.0-17.5) gm/dL Hct (39.0-53.0) % Plt Count (150-450) k/uL Lymphocytes # (1.0-4.8) k/uL Sodium (137-145) mmol/L BUN (9-20) mg/dL Glucose (74-99) mg/dL POC Glucose (mg/dL) 141 H 140 H 164 H (75-99) mg/dL Alkaline Phosphatase (38-126) U/L Total Protein (6.3-8.2) g/dL Albumin (3.5-5.0) g/dL 05/16/18 05/16/18 05/16/18 Range/Units 02:43 04:40 04:40 RBC 2.81 L (4.30-5.90) m/uL Hgb 7.9 L (13.0-17.5) gm/dL Hct 23.9 L (39.0-53.0) % Plt Count 80 L (150-450) k/uL Lymphocytes # 0.5 L (1.0-4.8) k/uL Sodium 134 L (137-145) mmol/L BUN 23 H (9-20) mg/dL Glucose 127 H (74-99) mg/dL POC Glucose (mg/dL) 140 H (75-99) mg/dL Alkaline Phosphatase 32 L (38-126) U/L Total Protein 5.1 L (6.3-8.2) g/dL Albumin 3.2 L (3.5-5.0) g/dL 05/16/18 Range/Units 07:23 RBC (4.30-5.90) m/uL Hgb (13.0-17.5) gm/dL Hct (39.0-53.0) % Plt Count (150-450) k/uL Lymphocytes # (1.0-4.8) k/uL Sodium (137-145) mmol/L BUN (9-20) mg/dL Glucose (74-99) mg/dL POC Glucose (mg/dL) 136 H (75-99) mg/dL Alkaline Phosphatase (38-126) U/L Total Protein (6.3-8.2) g/dL Albumin (3.5-5.0) g/dL Assessment and Plan Assessment: Assessment Postop day #2, status post aortic valve replacement, intraoperative transesophageal echocardiogram, excision of left atrial appendage. History of severe aortic stenosis and moderate mitral valve regurgitation Status post routine postoperative ventilator management History of chronic atrial fibrillation History of chronic nicotine dependence History of anemia secondary to surgery. Left ventricular systolic dysfunction, with an ejection fraction of 40-45% Moderate pulmonary hypertension History of CAD History of hypertension History of hyperlipidemia History of BPH Plan: Plan dated 05/15/2018 The patient will continue with deep breathing coughing and clearing of secretions. We'll also recommend that he use incentive spirometer every hour. In addition, we will continue with the updraft treatments. White count is 6.8, hemoglobin 9.2, hematocrit 28.5, and platelet count 105,000. PT INR and PTT are all normal. Sodium potassium normal. Chlorides 109. Bicarbonate concentration anion gap BUN and creatinine all normal. Chest x-ray shows post surgical changes as well as some bibasilar atelectasis. Medications are reviewed and are appropriate. I will continue to follow this patient. Hopefully the patient will be weaned off the IV calcium channel kristopher and a short period of time. Critical care time 34 minutes Plan dated 05/16/2018. The patient remains on lactated Ringer's at 20 mL an hour. The patient is encouraged to continue to use his incentive spirometer every hour. In addition we recommend deep breathing coughing and clearing of secretions. The patient remains in atrial fibrillation with a controlled ventricular response rate. He denies any chest pain chest discomfort or difficulty breathing. There is no cough or phlegm production or hemoptysis. There is neither fever or chills or any or GI issues. We will continue to follow the patient until discharge. Chest x-ray is relatively stable showing a bit of a fluid overload as well as by basilar atelectasis and small to moderate pleural effusions bilaterally. Critical care time 31 minutes Time with Patient: Greater than 30
[2018-05-16] MEDS: INSULIN ASPART 100 UNIT/ML 1 ML 10 ML VIAL SQ SCH ×4 (08:40→21:07)
[2018-05-16] MEDS: CLOPIDOGREL 75 MG TAB PO SCH (08:41)
[2018-05-16] MEDS: PANTOPRAZOLE 40 MG TABLET PO SCH (08:41)
[2018-05-16] MEDS: ATORVASTATIN 40 MG TAB PO SCH (08:42)
[2018-05-16] MEDS: ASPIRIN 325 MG TAB PO SCH (08:42)
[2018-05-16] MEDS: MUPIROCIN 2% OINT 22 GM TUBE NASAL SCH ×2 (08:43→21:08)
[2018-05-16] MEDS: TAMSULOSIN 0.4 MG CAP.ER.24H PO SCH ×2 (08:43→21:08)
--- NOTE | 2018-05-16 09:03 | XR ---
EXAMINATION TYPE: XR chest 1V portable DATE OF EXAM: 05/16/2018 COMPARISON: 05/15/2018 HISTORY: Post cardiac surgery TECHNIQUE: Single frontal view of the chest is obtained. FINDINGS: [place] catheters been removed and there is a vascular sheath. Bilateral consolidation a nd pleural effusion noted. There is cardiomegaly and postoperative changes. Mediastinal drain seen. I nterstitial pattern noted. No pneumothorax. Arthropathy of the shoulders. IMPRESSION: 1. Bilateral infiltrate and pleural effusion correlate for CHF. Findings are similar to the prior fermin reed
[2018-05-16] MEDS ORDERED: ACETAMINOPHEN TAB 325 MG TAB PO PRN (09:29)
--- NOTE | 2018-05-16 10:03 | P.PN ---
Subjective Progress Note Date: 05/16/18 Principal diagnosis: Severe aortic valve stenosis. Moderate mitral valve regurgitation. Chronic atrial fibrillation on Coumadin for anticoagulation. Chronic, stable proximal LAD lesion 50%. Hypertension. Hyperlipidemia. Peripheral vascular disease. Deep vein thrombosis in 2014. Left ventricular systolic dysfunction with ejection fraction of 40-45%. Previous tobacco dependence. Mild COPD with preoperative FEV1 66% of predicted. BPH. POD #2 aortic valve replacement using a 25 mm bovine Inspiris bioprosthesis. Exclusion of the left atrial appendage using a 45 mm AtriClip. Intraoperative transesophageal echocardiogram and epi-aortic scanning. Patient is currently sitting up in a recliner in no acute distress. Denies pain , shortness of breath. He was just up ambulating in the hallway without difficulty. No new complaints. Objective - Vital Signs Vital signs: Vital Signs Temp 98.2 F 05/16/18 08:00 Pulse 100 05/16/18 08:03 Resp 22 05/16/18 08:00 BP 87/46 05/16/18 08:00 Pulse Ox 100 05/16/18 08:00 Intake & Output 05/15/18 05/16/18 05/16/18 18:59 06:59 18:59 Intake Total 3479.608 1486 62 Output Total 405 505 80 Balance 658.683 527 -18 Weight 98.7 kg 95.5 kg Intake: IV 449 432 62 0.9NS Cardiac Output 20 0.9NS Pressure Bag 69 72 12 Lactated Ringers 1,000 ml 360 360 50 @ 20 mls/hr IV .Q24H [facility] Rx#:[id number] Intake, IV Titration 614.683 Amount ACETAMINOPHEN IV (For NPO 100 ) 1,000 mg In Empty Bag 1 bag @ 400 mls/hr IVPB Q6HR [facility] Rx#:[id number] Albumin Human 5% 250 ml 500 In Empty Bag 1 bag @ 250 mls/hr IVPB Q1HR PRN Rx#: [id number] Insulin Regular 100 unit 14.683 In Sodium Chloride 0.9% 100 ml @ Per Protocol IV .Q0M [facility] Rx#:[id number] Oral 600 Output: Chest Tube Drainage [address] X 2 110 130 20 Urine 295 375 60 Other: Voiding Method Indwelling Catheter Indwelling Catheter ABP, PAP, CO, CI - Last Documented Arterial Blood Pressure 130/50 Pulmonary Artery Pressure 18/10 Cardiac Output 4.9 Cardiac Index 2.3 - Constitutional General appearance: Present: cooperative, no acute distress - Respiratory Details: Lungs sounds diminished bilaterally. Respirations even, nonlabored. Currently on room air with oxygen saturation 96%. Able to achieve 1000 mL on his incentive spirometry. Effective cough. - Cardiovascular Details: S1, S2 present. Irregular rate and rhythm, atrial fibrillation on telemetry. Sternum stable. A/V epicardial pacemaker wires present, connected to generator , generator turned off. Palpable peripheral pulses bilaterally. No edema present. No calf pain or tenderness noted. Right internal jugular Cordis, left radial arterial line present. Heart hugger in place with patient demonstrating appropriate use. Antiembolism stockings, SCDs present. Mediastinal chest tubes to continuous wall suction, 80 mL serosanguineous drainage overnight, 300 mL in the last 24 hours, no air leak present. - Gastrointestinal Gastrointestinal Comment(s): Abdomen soft, nontender, nondistended. Active bowel sounds present 4 quadrants. Tolerating diet. Positive flatus. - Genitourinary Genitourinary Comment(s): Chery present draining clear, yellow urine. Output 25-40 mL/h overnight despite Lasix given twice yesterday. - Integumentary Integumentary Comment(s): Skin is warm and dry with evidence of good perfusion. Anterior chest incision well approximated and covered with dry intact dressing. - Neurologic Neurologic: Present: CNII-XII intact - Musculoskeletal Musculoskeletal: Present: gait normal, strength equal bilaterally - Psychiatric Psychiatric: Present: A&O x's 3, appropriate affect, intact judgment & insight - Allied health notes Allied health notes reviewed: nursing - Labs CBC & Chem 7: 05/16/18 04:40 05/16/18 04:40 Labs: Abnormal Lab Results - Last 24 Hours (Table) 05/15/18 05/15/18 05/15/18 Range/Units 09:59 10:59 12:16 RBC (4.30-5.90) m/uL Hgb (13.0-17.5) gm/dL Hct (39.0-53.0) % Plt Count (150-450) k/uL Lymphocytes # (1.0-4.8) k/uL Sodium (137-145) mmol/L BUN (9-20) mg/dL Glucose (74-99) mg/dL POC Glucose (mg/dL) 161 H 130 H 114 H (75-99) mg/dL Alkaline Phosphatase (38-126) U/L Total Protein (6.3-8.2) g/dL Albumin (3.5-5.0) g/dL 05/15/18 05/15/18 05/15/18 Range/Units 13:28 14:23 15:34 RBC (4.30-5.90) m/uL Hgb (13.0-17.5) gm/dL Hct (39.0-53.0) % Plt Count (150-450) k/uL Lymphocytes # (1.0-4.8) k/uL Sodium (137-145) mmol/L BUN (9-20) mg/dL Glucose (74-99) mg/dL POC Glucose (mg/dL) 197 H 189 H 141 H (75-99) mg/dL Alkaline Phosphatase (38-126) U/L Total Protein (6.3-8.2) g/dL Albumin (3.5-5.0) g/dL 05/15/18 05/15/18 05/16/18 Range/Units 17:34 20:54 02:43 RBC (4.30-5.90) m/uL Hgb (13.0-17.5) gm/dL Hct (39.0-53.0) % Plt Count (150-450) k/uL Lymphocytes # (1.0-4.8) k/uL Sodium (137-145) mmol/L BUN (9-20) mg/dL Glucose (74-99) mg/dL POC Glucose (mg/dL) 140 H 164 H 140 H (75-99) mg/dL Alkaline Phosphatase (38-126) U/L Total Protein (6.3-8.2) g/dL Albumin (3.5-5.0) g/dL 05/16/18 05/16/18 05/16/18 Range/Units 04:40 04:40 07:23 RBC 2.81 L (4.30-5.90) m/uL Hgb 7.9 L (13.0-17.5) gm/dL Hct 23.9 L (39.0-53.0) % Plt Count 80 L (150-450) k/uL Lymphocytes # 0.5 L (1.0-4.8) k/uL Sodium 134 L (137-145) mmol/L BUN 23 H (9-20) mg/dL Glucose 127 H (74-99) mg/dL POC Glucose (mg/dL) 136 H (75-99) mg/dL Alkaline Phosphatase 32 L (38-126) U/L Total Protein 5.1 L (6.3-8.2) g/dL Albumin 3.2 L (3.5-5.0) g/dL - Imaging and Cardiology Chest x-ray: report reviewed, image reviewed Assessment and Plan (1) Severe aortic valve stenosis Current Visit: Yes Status: Chronic Code(s): I35.0 - NONRHEUMATIC AORTIC ( VALVE) STENOSIS SNOMED Code(s): 02977358 (2) Moderate mitral valve regurgitation Current Visit: Yes Status: Chronic Code(s): I34.0 - NONRHEUMATIC MITRAL ( VALVE) INSUFFICIENCY SNOMED Code(s): 14675534 (3) Chronic atrial fibrillation Current Visit: Yes Status: Chronic Code(s): I48.2 - CHRONIC ATRIAL FIBRILLATION SNOMED Code(s): 884549170 (4) Hypertension Current Visit: Yes Status: Chronic Code(s): I10 - ESSENTIAL (PRIMARY) HYPERTENSION SNOMED Code(s): 57228605 (5) Hyperlipidemia Current Visit: Yes Status: Chronic Code(s): E78.5 - HYPERLIPIDEMIA, UNSPECIFIED SNOMED Code(s): 64230334 (6) Coronary artery disease Current Visit: Yes Status: Chronic Code(s): I25.10 - ATHSCL HEART DISEASE OF [place] CORONARY ARTERY W/O ANG PCTRS SNOMED Code(s): 23083293 (7) Peripheral vascular disease Current Visit: Yes Status: Chronic Code(s): I73.9 - PERIPHERAL VASCULAR DISEASE, UNSPECIFIED SNOMED Code(s): 886897830 (8) History of DVT (deep vein thrombosis) Current Visit: No Status: Resolved Code(s): Z86.718 - PERSONAL HISTORY OF OTHER VENOUS THROMBOSIS AND EMBOLISM SNOMED Code(s): 627731658 (9) BPH (benign prostatic hyperplasia) Current Visit: Yes Status: Chronic Code(s): N40.0 - BENIGN PROSTATIC HYPERPLASIA WITHOUT LOWER URINRY TRACT SYMP SNOMED Code(s): 416316690 (10) COPD (chronic obstructive pulmonary disease) Current Visit: Yes Status: Chronic Code(s): J44.9 - CHRONIC OBSTRUCTIVE PULMONARY DISEASE, UNSPECIFIED SNOMED Code(s): 92884697 (11) Tobacco dependence in remission Current Visit: No Status: Resolved Code(s): F17.201 - NICOTINE DEPENDENCE, UNSPECIFIED, IN REMISSION SNOMED Code(s): 017452543 (12) Chronic left ventricular systolic dysfunction Current Visit: Yes Status: Chronic Code(s): I51.9 - HEART DISEASE, UNSPECIFIED SNOMED Code(s): 394151729 Plan: 1. Continue low-dose aspirin, statin, Plavix, subcu heparin, beta kristopher. Will increase beta kristopher therapy as tolerated. 2. Will add back in Coumadin for anticoagulation once all invasive lines and tubes have been discontinued. 3. Encourage incentive spirometry is 10 times every hour. 4. Increase activity, ambulate as tolerated. PT/OT/cardiac rehab following. 5. Will discontinue atrial epicardial wire, chest tubes, arterial line, central line. 6. GI/DVT prophylaxis. 7. Will monitor daily labs and x-rays. 8. Bronchodilators per pulmonology. 9. Continue Proscar, Flomax for BPH. Chery discontinued. Bladder scan patient every 6 hours or after each void, straight cath for greater than 300 mL residual. 10. Insulin management per primary care service. 11. Pain control with current medication regimen. 12. Will place transfer orders for 6 E. selective care later this afternoon. 13. More recommendations to follow. Time with Patient: Greater than 30
--- NOTE | 2018-05-16 11:30 | PN ---
PROGRESS NOTE This patient is status post aortic valve replacement. Patient is comfortable. No respiratory distress is noted. The patient went into atrial fibrillation yesterday afternoon. The heart rate remains controlled. Blood pressure is 100/55 mmHg. Respirations are not labored. Intermittently his respiratory rate goes up to 25 to 30. First and second heart sounds are normal. Lung examination reveals diminished air entry. The patient had a urine output of 910 mL yesterday. Chest x-ray is suggestive of possible mild fluid overload. Hemoglobin is 7.9. Creatinine is 0.9. We will continue the current medications. If patient persists for more than 48 hours atrial fibrillation, anticoagulation may be considered. MMODL / IJN: [id number] /
[2018-05-16] MEDS: LACTATED RINGERS 1,000 ML IV SCH (11:50)
[2018-05-16 12:25] LABS: Glucose,Whole Blood 130 mg/dL (75-99)
[2018-05-16 16:30] LABS: Glucose,Whole Blood 129 mg/dL (75-99)
[2018-05-16 20:28] LABS: Glucose,Whole Blood 139 mg/dL (75-99)
[2018-05-16] MEDS: FINASTERIDE 5 MG TAB PO SCH (21:07)
[2018-05-16] MEDS: SENNOSIDES-DOCUSATE SODIUM 1 EACH TAB PO SCH (21:08)
[2018-05-17 01:32] LABS: Glucose,Whole Blood 133 mg/dL (75-99)
[2018-05-17 05:54] LABS: Glucose,Whole Blood 135 mg/dL (75-99)
--- NOTE | 2018-05-17 06:30 | P.CONS ---
History of Present Illness - Chief Complaint Cardiac debility - History of Present Illness I had the opportunity to see patient for inpatient rehab consultation with regard to cardiac debility. He was admitted to [facility] May 14 with severe aortic stenosis, underwent aVR. Known mitral regurg and chronic A. fib. Seen in consultation by pulmonary and the hospitalist, Dr. Coronel. Chest x-rays followed for bilateral infiltrates and effusions. PT reports two-person minimal assistance for bed mobility. Minimal assistance for gait 65 feet with hand-held. OT prescribed. Previous functional history as elicited from patient: 83-year-old right-handed white male who is and lives in one floor home with and daughter. Retired. does the cooking. They share the laundry and the driving. Patient independent with standing shower and gait without device. Dr. Alarcon is regular doctor. History smoking but doesn't smoke or drink currently. Past medical history both parents smokers. Review of Systems Review of systems: ENT: Denies sneezes or discharge. Eyes: Denies discharge or photophobia. Cardiac: Mild sternal discomfort. Pulmonary: Mild shortness of breath. Gastrointestinal: Denies nausea, emesis, constipation, diarrhea. Genitourinary: Denies discharge or frequency. Musculoskeletal: Denies muscle or bone aches. Neurologic: Generalized weakness. Endocrine: Denies shakes or sweats. Oncology: Denies cancers. Dermatologic: Denies rash, itching, pruritus. ALLERGY/immunology: Denies sneezes, rashes. Past Medical History Past Medical History: Atrial Fibrillation, Deep Vein Thrombosis (DVT), Hyperlipidemia, Hypertension, Osteoarthritis (OA), Prostate Disorder Additional Past Medical History / Comment(s): Aortic Stenosis; DVT leg 1999; enl. prostate History of Any Multi-Drug Resistant Organisms: None Reported Past Surgical History: Heart Catheterization, Orthopedic Surgery, Prostate Surgery Additional Past Surgical History / Comment(s): Matthew. hip replacement; R Knee replaced; Prostate surg., cataracts removed Past Anesthesia/Blood Transfusion Reactions: No Reported Reaction Smoking Status: Former smoker - Past Family History Mother Family Medical History: No Reported History Medications and Allergies Home Medications Medication Instructions Recorded Confirmed Type Enalapril [Vasotec] 5 mg PO DAILY 09/22/14 05/14/18 History Hydrochlorothiazide [Hydrodiuril] 12.5 mg PO DAILY 09/22/14 05/14/18 History Simvastatin [Zocor] 10 mg PO HS 09/22/14 05/14/18 History Warfarin [Coumadin] 2.5 mg PO SUTUWEFRSA 09/22/14 05/14/18 History Warfarin [Coumadin] 3.75 mg PO MOTH 09/22/14 05/14/18 History Methylcellulose (with Sugar) 1 cap PO BID 09/29/14 05/14/18 History [Citrucel] Tamsulosin [Flomax] 0.4 mg PO DAILY #14 cap 09/30/14 05/14/18 Rx Metoprolol Succinate [Toprol XL] 25 mg PO BID 10/10/17 05/14/18 History Finasteride [Proscar] 5 mg PO HS 04/08/18 05/14/18 History Aspirin 325 mg PO DAILY 05/14/18 05/14/18 History Allergies Allergy/AdvReac Type Severity Reaction Status Date / Time No Known Allergies Allergy Verified 05/14/18 14:16 Physical Exam Vitals: Vital Signs Temp Pulse Pulse Pulse Resp BP BP 05/17/18 04:00 98.1 F 70 18 104/57 05/17/18 00:00 98.9 F 77 18 108/62 05/16/18 20:45 97.4 F L 107 H 18 150/60 05/16/18 20:11 78 05/16/18 20:03 78 05/16/18 16:03 78 05/16/18 15:54 78 05/16/18 12:26 98.3 F 74 20 99/50 05/16/18 12:01 82 05/16/18 11:48 80 05/16/18 11:45 26 H 05/16/18 10:00 87 26 H 92/55 05/16/18 09:00 107 H 24 05/16/18 08:03 100 05/16/18 08:00 98.2 F 82 26 H 87/46 05/16/18 07:50 90 05/16/18 07:00 93 20 87/46 Pulse Ox 05/17/18 04:00 94 L 05/17/18 00:00 94 L 05/16/18 20:45 91 L 05/16/18 20:11 05/16/18 20:03 05/16/18 16:03 05/16/18 15:54 05/16/18 12:26 97 05/16/18 12:01 05/16/18 11:48 05/16/18 11:45 05/16/18 10:00 94 L 05/16/18 09:00 93 L 05/16/18 08:03 05/16/18 08:00 100 05/16/18 07:50 05/16/18 07:00 92 L Intake and Output 05/16/18 05/16/18 05/17/18 14:59 22:59 06:59 Intake Total 88 250 Output Total 130 200 100 Balance -42 50 -100 Intake: IV 88 10 0.9NS Pressure Bag 18 Invasive Line 4 10 Lactated Ringers 1,000 ml 70 @ 20 mls/hr IV .Q24H [facility] Rx#:[id number] Oral 240 Output: Chest Tube Drainage [address] X 2 45 Urine 85 200 100 Other: Voiding Method Urinal Toilet Toilet # Voids 1 Weight 95.2 kg Skin: Good color, texture, turgor. General: Medium build and comfortable appearance. Head: Normocephalic, atraumatic. Eyes: Symmetric. Pupils equal round. Ears: Symmetric. Hearing within normal limits. Mouth: Clear. Neck: Supple. Carotid without bruit. Cardiac: Regular rate and rhythm. Chest clean and dressed. Wearing harness. Lungs: Clear anteriorly and posteriorly. Abdomen: Soft active nontender. Extremities: Normal tone. Neurological: Mental status: Alert, cooperative, pleasant. Cranial nerves: Symmetric facial tone and trapezius. Motor: Normal strength and isolation all 4 limbs. Sensation: Intact throughout. DTRs: Symmetric and equal throughout. Mobility: Requires assistance with nursing staff to transfer from bed to Maddie chair. Results CBC & Chem 7: 05/16/18 04:40 05/16/18 04:40 Labs: Abnormal Lab Results - Last 24 Hours (Table) 05/16/18 05/16/18 05/16/18 Range/Units 07:23 12:23 16:28 POC Glucose (mg/dL) 136 H 130 H 129 H (75-99) mg/dL 05/16/18 05/17/18 05/17/18 Range/Units 20:27 01:31 05:51 POC Glucose (mg/dL) 139 H 133 H 135 H (75-99) mg/dL Assessment and Plan (1) Moderate mitral valve regurgitation Current Visit: Yes Status: Chronic Code(s): I34.0 - NONRHEUMATIC MITRAL ( VALVE) INSUFFICIENCY SNOMED Code(s): 72430378 Plan: Impression: 1. Cardiac debility. 2. Aortic stenosis status post AVR. 3. Mitral regurg. 4. Chronic atrial fibrillation. 5. Hypertension. 6. Dyslipidemia. 7. Osteoarthritis. 8. History of DVT. 9. BPH. Comments and plan: At this time PT ongoing and OT prescribed. Follow therapies with yourself. Have discussed possible inpatient rehab with patient and he seems agreeable, if necessary.
[2018-05-17] MEDS: PANTOPRAZOLE 40 MG TABLET PO SCH (06:33)
[2018-05-17] MEDS: INSULIN ASPART 100 UNIT/ML 1 ML 10 ML VIAL SQ SCH ×4 (06:33→21:07)
[2018-05-17] MEDS: ACETAMINOPHEN TAB 325 MG TAB PO PRN ×2 (06:33→23:41)
[2018-05-17 06:39] LABS: Basophils % (A) 0 %; Eosinophils # (A) 0.1 k/uL (0-0.7); Eosinophils % (A) 1 %; HCT 22.6 % (39.0-53.0); HGB 7.6 gm/dL (13.0-17.5); Lymphocytes # (A) 0.5 k/uL (1.0-4.8); Lymphocytes % (A) 9 %; MCH 29.1 pg (25.0-35.0); MCHC 33.8 g/dL (31.0-37.0); MCV 86.3 fL (80.0-100.0); Mean Platelet Volume 8.2; Monocytes # (A) 0.3 k/uL (0-1.0); Monocytes % (A) 6 %; Neutrophils # (A) 4.7 k/uL (1.3-7.7); Neutrophils % (A) 83 %; RBC 2.62 m/uL (4.30-5.90); RDW 14.5 % (11.5-15.5); WBC 5.7 k/uL (3.8-10.6)
[2018-05-17 06:49] LABS: Platelet Count 86 k/uL (150-450)
[2018-05-17 07:02] LABS: ALT 32 U/L (21-72); AST 33 U/L (17-59); Alkaline Phosphatase 36 U/L (38-126); Anion Gap 7 mmol/L; Blood Urea Nitrogen 28 mg/dL (9-20); Calcium 8.3 mg/dL (8.4-10.2); Carbon Dioxide 25 mmol/L (22-30); Chloride 102 mmol/L (98-107); Glucose 114 mg/dL (74-99); Potassium 4.2 mmol/L (3.5-5.1); Sodium 134 mmol/L (137-145); Total Bilirubin 1.2 mg/dL (0.2-1.3); Total Protein 4.9 g/dL (6.3-8.2)
[2018-05-17] MEDS: IPRATROPIUM-ALBUTEROL 3 ML NEB INHALATION SCH ×4 (08:13→20:31)
--- NOTE | 2018-05-17 08:45 | XR ---
EXAMINATION TYPE: XR chest 2V DATE OF EXAM: 05/17/2018 COMPARISON: 05/16/2018 TECHNIQUE: PA and lateral views submitted. HISTORY: Post cardiac surgery FINDINGS: Bilateral consolidation and pleural effusion noted. Postoperative change and cardiomegaly seen. Vascu lar sheath has been no sizable pneumothorax. Interstitium remains mildly prominent centrally. Arthrop athy of the shoulders noted. IMPRESSION: 1. Stable bilateral infiltrate and pleural effusion. Mild central venous congestion differential diag nosis
[2018-05-17] MEDS ORDERED: ASPIRIN 325 MG TAB PO SCH (09:00)
[2018-05-17] MEDS: MUPIROCIN 2% OINT 22 GM TUBE NASAL SCH ×2 (09:02→20:53)
[2018-05-17] MEDS: CLOPIDOGREL 75 MG TAB PO SCH (09:02)
[2018-05-17] MEDS: ATORVASTATIN 40 MG TAB PO SCH (09:02)
[2018-05-17] MEDS: METOPROLOL TARTRATE 12.5 MG TAB PO SCH (09:02)
[2018-05-17] MEDS: TAMSULOSIN 0.4 MG CAP.ER.24H PO SCH ×2 (09:02→20:54)
--- NOTE | 2018-05-17 09:20 | P.PN ---
Subjective Progress Note Date: 05/17/18 Principal diagnosis: Severe aortic valve stenosis. Moderate mitral valve regurgitation. Chronic atrial fibrillation on home Coumadin therapy for anticoagulation. Chronic, stable proximal LAD lesion 50%. Hypertension. Hyperlipidemia. Peripheral vascular disease. Deep vein thrombosis in 2014. Left ventricular systolic dysfunction with ejection fraction of 40-45%. Previous tobacco dependence. Mild COPD with preoperative FEV1 66% of predicted and BPH. POD #3 aortic valve replacement using a 25 mm bovine Inspiris bioprosthesis. Exclusion of the left atrial appendage using a 45 mm AtriClip. Intraoperative transesophageal echocardiogram and epi-aortic scanning. Patient is sitting up to the bedside chair. He is in no acute distress. Denies any complaints of pain or shortness of breath at this time. He is tolerating oral intake. He reports that he has been evaluated by Dr. Bernal this morning for inpatient rehab upon discharge. Objective - Vital Signs Vital signs: Vital Signs Temp 99.3 F 05/17/18 06:30 Pulse 76 05/17/18 08:25 Resp 16 05/17/18 08:15 BP 104/57 05/17/18 04:00 Pulse Ox 94 L 05/17/18 04:00 Intake & Output 05/16/18 05/17/18 05/17/18 18:59 06:59 18:59 Intake Total 328 10 Output Total 130 400 Balance 198 -390 Weight 95.2 kg Intake: IV 88 10 0.9NS Pressure Bag 18 Invasive Line 4 10 Lactated Ringers 1,000 ml 70 @ 20 mls/hr IV .Q24H [facility] Rx#:[id number] Oral 240 Output: Chest Tube Drainage [address] X 2 45 Urine 85 400 Other: Voiding Method Urinal Toilet # Voids 1 ABP, PAP, CO, CI - Last Documented Arterial Blood Pressure 141/45 Pulmonary Artery Pressure 18/10 Cardiac Output 4.9 Cardiac Index 2.3 - Constitutional General appearance: Present: cooperative, no acute distress - Respiratory Details: Lung sounds essentially clear throughout, few scattered crackles to his bilateral bases. Respirations are symmetrical and nonlabored. Oxygen saturation are 94% on room air. He is achieving 750 mL to 1000 mL on his incentive spirometry. - Cardiovascular Details: Irregular rhythm with controlled rate. S1 and S2 present, negative for S3, gallop or murmur. Sternum is stable. Remote telemetry showing atrial fibrillation heart rate 90. No edema present. Knee-high SABI hose and sequential compression devices in place to his bilateral lower extremities. Heart hugger's in place and he is demonstrating appropriate use. Ventricular epicardial pacemaker wires in place and grounded. - Gastrointestinal Gastrointestinal Comment(s): Abdomen is soft, nontender and nondistended. Active bowel sounds all 4 abdominal quadrants. Cautery intake. Passing flatus. No bowel movement since surgery. - Genitourinary Genitourinary Comment(s): Finding clear martinez urine. 400 mL output in the last 8 hours. - Integumentary Integumentary Comment(s): Skin is warm and dry. No clubbing or cyanosis present. Midline sternal incision clean dry and well approximated. No drainage or redness present. - Neurologic Neurologic: Present: CNII-XII intact - Musculoskeletal Musculoskeletal: Present: gait normal, strength equal bilaterally - Psychiatric Psychiatric: Present: A&O x's 3, appropriate affect, intact judgment & insight - Allied health notes Allied health notes reviewed: nursing - Labs CBC & Chem 7: 05/17/18 05:53 05/17/18 05:53 Labs: Abnormal Lab Results - Last 24 Hours (Table) 05/16/18 05/16/18 05/16/18 Range/Units 12:23 16:28 20:27 RBC (4.30-5.90) m/uL Hgb (13.0-17.5) gm/dL Hct (39.0-53.0) % Plt Count (150-450) k/uL Lymphocytes # (1.0-4.8) k/uL Sodium (137-145) mmol/L BUN (9-20) mg/dL Glucose (74-99) mg/dL POC Glucose (mg/dL) 130 H 129 H 139 H (75-99) mg/dL Calcium (8.4-10.2) mg/dL Alkaline Phosphatase (38-126) U/L Total Protein (6.3-8.2) g/dL Albumin (3.5-5.0) g/dL 05/17/18 05/17/18 05/17/18 Range/Units 01:31 05:51 05:53 RBC (4.30-5.90) m/uL Hgb (13.0-17.5) gm/dL Hct (39.0-53.0) % Plt Count (150-450) k/uL Lymphocytes # (1.0-4.8) k/uL Sodium 134 L (137-145) mmol/L BUN 28 H (9-20) mg/dL Glucose 114 H (74-99) mg/dL POC Glucose (mg/dL) 133 H 135 H (75-99) mg/dL Calcium 8.3 L (8.4-10.2) mg/dL Alkaline Phosphatase 36 L (38-126) U/L Total Protein 4.9 L (6.3-8.2) g/dL Albumin 3.0 L (3.5-5.0) g/dL 05/17/18 Range/Units 05:53 RBC 2.62 L (4.30-5.90) m/uL Hgb 7.6 L (13.0-17.5) gm/dL Hct 22.6 L (39.0-53.0) % Plt Count 86 L (150-450) k/uL Lymphocytes # 0.5 L (1.0-4.8) k/uL Sodium (137-145) mmol/L BUN (9-20) mg/dL Glucose (74-99) mg/dL POC Glucose (mg/dL) (75-99) mg/dL Calcium (8.4-10.2) mg/dL Alkaline Phosphatase (38-126) U/L Total Protein (6.3-8.2) g/dL Albumin (3.5-5.0) g/dL - Imaging and Cardiology Chest x-ray: report reviewed, image reviewed Assessment and Plan (1) BPH (benign prostatic hyperplasia) Current Visit: Yes Status: Chronic Code(s): N40.0 - BENIGN PROSTATIC HYPERPLASIA WITHOUT LOWER URINRY TRACT SYMP SNOMED Code(s): 956867237 (2) COPD (chronic obstructive pulmonary disease) Current Visit: Yes Status: Chronic Code(s): J44.9 - CHRONIC OBSTRUCTIVE PULMONARY DISEASE, UNSPECIFIED SNOMED Code(s): 38560247 (3) Chronic atrial fibrillation Current Visit: Yes Status: Chronic Code(s): I48.2 - CHRONIC ATRIAL FIBRILLATION SNOMED Code(s): 624105906 (4) Chronic left ventricular systolic dysfunction Current Visit: Yes Status: Chronic Code(s): I51.9 - HEART DISEASE, UNSPECIFIED SNOMED Code(s): 961194087 (5) Coronary artery disease Current Visit: Yes Status: Chronic Code(s): I25.10 - ATHSCL HEART DISEASE OF [place] CORONARY ARTERY W/O ANG PCTRS SNOMED Code(s): 85997157 (6) Hyperlipidemia Current Visit: Yes Status: Chronic Code(s): E78.5 - HYPERLIPIDEMIA, UNSPECIFIED SNOMED Code(s): 69193282 (7) Hypertension Current Visit: Yes Status: Chronic Code(s): I10 - ESSENTIAL (PRIMARY) HYPERTENSION SNOMED Code(s): 55575771 (8) Moderate mitral valve regurgitation Current Visit: Yes Status: Chronic Code(s): I34.0 - NONRHEUMATIC MITRAL ( VALVE) INSUFFICIENCY SNOMED Code(s): 83858878 (9) Peripheral vascular disease Current Visit: Yes Status: Chronic Code(s): I73.9 - PERIPHERAL VASCULAR DISEASE, UNSPECIFIED SNOMED Code(s): 296927119 (10) Severe aortic valve stenosis Current Visit: Yes Status: Chronic Code(s): I35.0 - NONRHEUMATIC AORTIC ( VALVE) STENOSIS SNOMED Code(s): 79642104 (11) History of DVT (deep vein thrombosis) Current Visit: No Status: Resolved Code(s): Z86.718 - PERSONAL HISTORY OF OTHER VENOUS THROMBOSIS AND EMBOLISM SNOMED Code(s): 758934672 (12) Tobacco dependence in remission Current Visit: No Status: Resolved Code(s): F17.201 - NICOTINE DEPENDENCE, UNSPECIFIED, IN REMISSION SNOMED Code(s): 699490082 Plan: 1. Continue low-dose aspirin, statin, Plavix, subcu heparin, beta kristopher. Will increase metoprolol 25 mg by mouth twice a day. 2. Will add back in Coumadin for anticoagulation once his ventricular epicardial pacemaker wire has been discontinued. 3. Encourage incentive spirometry is 10 times every hour. 4. Increase activity, ambulate as tolerated. PT/OT/cardiac rehab following. 5. GI/DVT prophylaxis. 6. Will monitor daily labs and x-rays. 7. Bronchodilators per pulmonology. 8. Continue Proscar, Flomax for BPH. 9. Insulin management per primary care service. 10. Pain control with current medication regimen. 11. Discharge planning in place. Dr. Dolores's consult noted and appreciated. 12. More recommendations to follow based on the patient's clinical course. Time with Patient: Greater than 30
[2018-05-17 11:35] LABS: Glucose,Whole Blood 124 mg/dL (75-99)
[2018-05-17] MEDS: HEPARIN SODIUM,PORCINE 5,000 UNIT/ML 1 ML VIAL SQ SCH ×3 (12:13→23:32)
[2018-05-17] MEDS: ASPIRIN 81 MG PO SCH (12:17)
[2018-05-17] MEDS ORDERED: FUROSEMIDE 10 MG/ML 4 ML VIAL IV STA (12:18)
--- NOTE | 2018-05-17 13:01 | P.PN ---
Subjective Progress Note Date: 05/17/18 Principal diagnosis: Status post aortic valve replacement for aortic stenosis Progress note dated 05/15/2018 This is an 83-year-old gentleman who is postop day #1, status post aortic valve placement and excision of left atrial appendage for severe aortic stenosis. The patient was successfully extubated within 4 hours. The patient also has a history of mitral valve regurgitation chronic atrial fibrillation nicotine dependence anemia secondary to blood loss from the surgery, systolic dysfunction with an ejection fraction of 40-45% stable CAD hypertension hyperlipidemia BPH. Currently, the patient is not on any supplemental oxygen. He is Receiving IV cleviprex at 2 mg per hour. He is also on an insulin drip at 2.5 units per hour and lactated Ringer's IV at 50 mL an hour. The patient seemed be doing reasonably well. Certainly has pain at the surgical site. He denies any significant cough or wheezing. He is not practically short of breath. Denies any chest pain or chest discomfort other than surgical site pain. The patient's working on his incentive spirometer. As I mentioned above , he was able to be weaned and extubated within 4 hours. Progress note dated 05/16/2018 83-year-old male, postop day #2, status post aortic valve replacement and excision of left atrial appendage for severe aortic stenosis. The patient was successfully extubated within 4 hour time limit. The patient has a history of mitral valve regurgitation, chronic atrial fibrillation, nicotine dependence, anemia, systolic dysfunction with an ejection fraction of 40-45%, CAD, hypertension, hyperlipidemia and BPH. Currently, the patient is not receiving any supplemental oxygen. The IV is lactated Ringer's at 20 mL an hour. The patient is in atrial fibrillation with controlled ventricular response rate. In addition, the patient is able to get between 750 to 1000 mL on incentive spirometer. Currently, the patient does not have any complaints. Denies any chest pain or chest discomfort. He denies any shortness of breath cough wheezing phlegm production or hemoptysis. There is neither fever or chills or nausea vomiting or diarrhea. Patient is seen again today 05/17/2018 in follow-up on the selective care unit. He is currently resting quite comfortably in bed. He is awake and alert in no acute distress. He denies any worsening shortness of breath, cough or congestion. Chest x-ray reveals stable bilateral infiltrates and small effusions. Mild central venous congestion. He was given a dose of IV Lasix this morning. He is maintaining good O2 saturations in the mid 90s on room air. He's been afebrile. White count 5.7. Hemoglobin 7.6. Creatinine 0.90. He remains in atrial fibrillation. Anticoagulated with warfarin. Objective - Vital Signs Vital signs: Vital Signs Temp 96.3 F L 05/17/18 08:00 Pulse 78 05/17/18 12:24 Resp 16 05/17/18 12:14 BP 119/65 05/17/18 08:00 Pulse Ox 95 05/17/18 08:00 Intake & Output 05/16/18 05/17/18 05/17/18 18:59 06:59 18:59 Intake Total 328 10 360 Output Total 130 400 Balance 198 -390 360 Weight 95.2 kg Intake: IV 88 10 0.9NS Pressure Bag 18 Invasive Line 4 10 Lactated Ringers 1,000 ml 70 @ 20 mls/hr IV .Q24H [facility] Rx#:[id number] Oral 240 360 Output: Chest Tube Drainage [address] X 2 45 Urine 85 400 Other: Voiding Method Urinal Toilet Toilet # Voids 1 ABP, PAP, CO, CI - Last Documented Arterial Blood Pressure 141/45 Pulmonary Artery Pressure 18/10 Cardiac Output 4.9 Cardiac Index 2.3 - Exam No acute distress, oriented 3. Not requiring supplemental oxygen. HEENT examination is grossly unremarkable. Mucous membranes are moist. No oral lesions. Neck supple. Full range of motion. No adenopathy thyromegaly or neck vein distention. Cardiovascular examination reveals regular rhythm rate. S1-S2 normal. No S3 or S4. No discernible murmur noted. Heart sounds are distant. Lungs reveal improving bilateral breath sounds. Rhonchi are much less significant. No crackles or wheezes. Breath sounds equal. He is able to take deeper breaths today. Abdomen soft bowel sounds are heard. No masses or tenderness. Extremities are intact. No cyanosis clubbing or edema. Skin is without rash or lesion. Neurologic examination is brief but nonfocal. - Labs CBC & Chem 7: 05/17/18 05:53 05/17/18 05:53 Labs: Abnormal Lab Results - Last 24 Hours (Table) 05/16/18 05/16/18 05/17/18 Range/Units 16:28 20:27 01:31 RBC (4.30-5.90) m/uL Hgb (13.0-17.5) gm/dL Hct (39.0-53.0) % Plt Count (150-450) k/uL Lymphocytes # (1.0-4.8) k/uL Sodium (137-145) mmol/L BUN (9-20) mg/dL Glucose (74-99) mg/dL POC Glucose (mg/dL) 129 H 139 H 133 H (75-99) mg/dL Calcium (8.4-10.2) mg/dL Alkaline Phosphatase (38-126) U/L Total Protein (6.3-8.2) g/dL Albumin (3.5-5.0) g/dL 05/17/18 05/17/18 05/17/18 Range/Units 05:51 05:53 05:53 RBC 2.62 L (4.30-5.90) m/uL Hgb 7.6 L (13.0-17.5) gm/dL Hct 22.6 L (39.0-53.0) % Plt Count 86 L (150-450) k/uL Lymphocytes # 0.5 L (1.0-4.8) k/uL Sodium 134 L (137-145) mmol/L BUN 28 H (9-20) mg/dL Glucose 114 H (74-99) mg/dL POC Glucose (mg/dL) 135 H (75-99) mg/dL Calcium 8.3 L (8.4-10.2) mg/dL Alkaline Phosphatase 36 L (38-126) U/L Total Protein 4.9 L (6.3-8.2) g/dL Albumin 3.0 L (3.5-5.0) g/dL 05/17/18 Range/Units 11:31 RBC (4.30-5.90) m/uL Hgb (13.0-17.5) gm/dL Hct (39.0-53.0) % Plt Count (150-450) k/uL Lymphocytes # (1.0-4.8) k/uL Sodium (137-145) mmol/L BUN (9-20) mg/dL Glucose (74-99) mg/dL POC Glucose (mg/dL) 124 H (75-99) mg/dL Calcium (8.4-10.2) mg/dL Alkaline Phosphatase (38-126) U/L Total Protein (6.3-8.2) g/dL Albumin (3.5-5.0) g/dL Assessment and Plan Assessment: Assessment Postop day #3, status post aortic valve replacement, intraoperative transesophageal echocardiogram, excision of left atrial appendage. History of severe aortic stenosis and moderate mitral valve regurgitation Status post routine postoperative ventilator management History of chronic atrial fibrillation History of chronic nicotine dependence History of anemia secondary to surgery. Left ventricular systolic dysfunction, with an ejection fraction of 40-45% Moderate pulmonary hypertension History of CAD History of hypertension History of hyperlipidemia History of BPH Plan: Recommend by Dr. Williamson. Chest x-ray and labs were reviewed. He is currently stable from the pulmonary standpoint. He is working well with the incentive spirometer. We will increase his activity as tolerated. He has been evaluated by Dr. López for possible inpatient rehabilitation. We'll continue to follow. I, the cosigning physician, performed a history & physical examination of the patient. Lungs sounds with crackles in the bilateral posterior bases. Maintaining good O2 saturations in the 90s on room air. I discussed the assessment and plan of care with my nurse practitioner, Brenda Matthew. I attest to the above note as dictated by her.
--- NOTE | 2018-05-17 14:04 | P.PN ---
Subjective Progress Note Date: 05/17/18 This is a pleasant 83-year-old gentleman with a history of severe aortic valve stenosis, moderate mitral valve regurgitation, chronic atrial fibrillation, chronic stable proximal LAD lesion, hypertension, hyperlipidemia, peripheral vascular disease and left ventricular systolic dysfunction with ejection fraction of 40-45%. He is postop aortic valve replacement with a bovine bioprosthesis. He is doing well today. He is laying flat in bed without and difficulty breathing however he does have some complaints of shortness of breath with exertion. His vital signs are stable and he's afebrile. Objective - Vital Signs Vital signs: Vital Signs Temp 96.3 F L 05/17/18 08:00 Pulse 78 05/17/18 12:24 Resp 16 05/17/18 12:14 BP 119/65 05/17/18 08:00 Pulse Ox 95 05/17/18 08:00 Intake & Output 05/16/18 05/17/18 05/17/18 18:59 06:59 18:59 Intake Total 328 10 360 Output Total 130 400 Balance 198 -390 360 Weight 95.2 kg Intake: IV 88 10 0.9NS Pressure Bag 18 Invasive Line 4 10 Lactated Ringers 1,000 ml 70 @ 20 mls/hr IV .Q24H [facility] Rx#:[id number] Oral 240 360 Output: Chest Tube Drainage [address] X 2 45 Urine 85 400 Other: Voiding Method Urinal Toilet Toilet # Voids 1 ABP, PAP, CO, CI - Last Documented Arterial Blood Pressure 141/45 Pulmonary Artery Pressure 18/10 Cardiac Output 4.9 Cardiac Index 2.3 - Exam PHYSICAL EXAMINATION: HEENT: [Head is atraumatic, normocephalic. Pupils equal, round. Neck is supple. There is no elevated jugular venous pressure.] HEART EXAMINATION: [Heart sounds irregularly irregular, S1 and S2 normal. No murmur or gallop heard.] CHEST EXAMINATION:[ Lungs are clear to auscultation and precussion. No chest wall tenderness is noted on palpation or with deep breathing.] ABDOMEN: [ Soft, nontender. Bowel sounds are heard. No organomegaly noted]. EXTREMITIES:[ 2+ peripheral pulses with no evidence of peripheral edema and no calf tenderness noted. Knee-high SABI hose and sequential compression devices in place to bilateral lower extremities.]. NEUROLOGIC [patient is awake, alert and oriented x3.] . - Labs CBC & Chem 7: 05/17/18 05:53 05/17/18 05:53 Labs: Abnormal Lab Results - Last 24 Hours (Table) 05/16/18 05/16/18 05/17/18 Range/Units 16:28 20:27 01:31 RBC (4.30-5.90) m/uL Hgb (13.0-17.5) gm/dL Hct (39.0-53.0) % Plt Count (150-450) k/uL Lymphocytes # (1.0-4.8) k/uL Sodium (137-145) mmol/L BUN (9-20) mg/dL Glucose (74-99) mg/dL POC Glucose (mg/dL) 129 H 139 H 133 H (75-99) mg/dL Calcium (8.4-10.2) mg/dL Alkaline Phosphatase (38-126) U/L Total Protein (6.3-8.2) g/dL Albumin (3.5-5.0) g/dL 05/17/18 05/17/18 05/17/18 Range/Units 05:51 05:53 05:53 RBC 2.62 L (4.30-5.90) m/uL Hgb 7.6 L (13.0-17.5) gm/dL Hct 22.6 L (39.0-53.0) % Plt Count 86 L (150-450) k/uL Lymphocytes # 0.5 L (1.0-4.8) k/uL Sodium 134 L (137-145) mmol/L BUN 28 H (9-20) mg/dL Glucose 114 H (74-99) mg/dL POC Glucose (mg/dL) 135 H (75-99) mg/dL Calcium 8.3 L (8.4-10.2) mg/dL Alkaline Phosphatase 36 L (38-126) U/L Total Protein 4.9 L (6.3-8.2) g/dL Albumin 3.0 L (3.5-5.0) g/dL 05/17/18 Range/Units 11:31 RBC (4.30-5.90) m/uL Hgb (13.0-17.5) gm/dL Hct (39.0-53.0) % Plt Count (150-450) k/uL Lymphocytes # (1.0-4.8) k/uL Sodium (137-145) mmol/L BUN (9-20) mg/dL Glucose (74-99) mg/dL POC Glucose (mg/dL) 124 H (75-99) mg/dL Calcium (8.4-10.2) mg/dL Alkaline Phosphatase (38-126) U/L Total Protein (6.3-8.2) g/dL Albumin (3.5-5.0) g/dL Assessment and Plan Assessment: #1 severe aortic valve stenosis #2 status post aortic valve replacement #3 chronic atrial fibrillation #4 hypertension #5 hyperlipidemia #6 moderate mitral valve regurgitation Plan: From cardiology's perspective, medications were reviewed he will continue the same. We'll continue to follow patient provide further recommendations accordingly. ORTHOTIC FITTER note has been reviewed, I agree with a documented findings and plan of care. Patient was seen and examined.
[2018-05-17 16:20] LABS: Glucose,Whole Blood 137 mg/dL (75-99)
--- NOTE | 2018-05-17 17:04 | P.PN ---
Subjective Patient reported no significant events overnight although he was slightly more out of breath this morning receive some Lasix and felt better. Chest x-ray showed some fluffy infiltrates and possible mild congestion. Currently he has no shortness of breath no chest pain or any significant discomfort. He is working with physical therapy in the hallway tolerating it quite well. Denies any abdominal pain nausea vomiting or diarrhea. No fever or chills. REVIEW OF SYSTEMS: CONSTITUTIONAL: No fever or chills HEENT: No changes in vision or voice CARDIOVASCULAR: no chest pain beyond usual expected sternotomy pain or any swelling in ankles or feet. RESPIRATORY: Per HPI GASTROINTESTINAL: No abdominal pain, no nausea no vomiting no constipation or diarrhea GENITOURINARY: no any urinary urgency, frequency or burning, and there has been no blood in her urine. no flank pain. MUSCULOSKELETAL: full range of motion of all her joints without pain or swelling. NEUROLOGICAL: , no headache. no vision changes, or fainting. No numbness or tingling. Objective - Vital Signs Vital signs: Vital Signs Temp 96.3 F L 05/17/18 08:00 Pulse 76 05/17/18 16:55 Resp 16 05/17/18 16:42 BP 112/74 05/17/18 12:00 Pulse Ox 100 05/17/18 12:00 Intake & Output 05/16/18 05/17/18 05/17/18 18:59 06:59 18:59 Intake Total 328 10 360 Output Total 130 400 Balance 198 -390 360 Weight 95.2 kg Intake: IV 88 10 0.9NS Pressure Bag 18 Invasive Line 4 10 Lactated Ringers 1,000 ml 70 @ 20 mls/hr IV .Q24H [facility] Rx#:[id number] Oral 240 360 Output: Chest Tube Drainage [address] X 2 45 Urine 85 400 Other: Voiding Method Urinal Toilet Toilet # Voids 1 ABP, PAP, CO, CI - Last Documented Arterial Blood Pressure 141/45 Pulmonary Artery Pressure 18/10 Cardiac Output 4.9 Cardiac Index 2.3 - Exam Vital Signs: I have reviewed the vital signs. GENERAL: no apparent distress, cooperative Eyes: PERRL, extraoculry movements intact, clear conjunctiva Head: : Atraumatic external nose and ears, oropharyngeal mucosa is moist without lesions or exudates Neck: Symmetric, trachea midline, No thyromegaly, no masses or neck vain pulsation, no neck rigidity CVS: +S1/S2, No murmurs or gallops. RESP: Unlabored respiratory effort. Inspiratory crackles and both bases right more than left Abdomen: Bowel sounds present in all 4 quadrants, Soft to palpation, Nontender/ Nondistended, No hepatosplenomegaly, no hernias or masses, no CVA tnderness Musculoskeletal: Extremities w/o deformity, No cyanosis or clubbing, no joint swelling Skin: Warm, Dry. No rashes or lesions Neuro: icu rn II-XII grossly intact, motor strenght 5/5 i upper and lower extremities, Psych: Awake, Alert, & Oriented (AAO) x3 Appropriate mood and affect - Labs CBC & Chem 7: 05/17/18 05:53 05/17/18 05:53 Labs: Abnormal Lab Results - Last 24 Hours (Table) 05/16/18 05/17/18 05/17/18 Range/Units 20:27 01:31 05:51 RBC (4.30-5.90) m/uL Hgb (13.0-17.5) gm/dL Hct (39.0-53.0) % Plt Count (150-450) k/uL Lymphocytes # (1.0-4.8) k/uL Sodium (137-145) mmol/L BUN (9-20) mg/dL Glucose (74-99) mg/dL POC Glucose (mg/dL) 139 H 133 H 135 H (75-99) mg/dL Calcium (8.4-10.2) mg/dL Alkaline Phosphatase (38-126) U/L Total Protein (6.3-8.2) g/dL Albumin (3.5-5.0) g/dL 05/17/18 05/17/18 05/17/18 Range/Units 05:53 05:53 11:31 RBC 2.62 L (4.30-5.90) m/uL Hgb 7.6 L (13.0-17.5) gm/dL Hct 22.6 L (39.0-53.0) % Plt Count 86 L (150-450) k/uL Lymphocytes # 0.5 L (1.0-4.8) k/uL Sodium 134 L (137-145) mmol/L BUN 28 H (9-20) mg/dL Glucose 114 H (74-99) mg/dL POC Glucose (mg/dL) 124 H (75-99) mg/dL Calcium 8.3 L (8.4-10.2) mg/dL Alkaline Phosphatase 36 L (38-126) U/L Total Protein 4.9 L (6.3-8.2) g/dL Albumin 3.0 L (3.5-5.0) g/dL 05/17/18 Range/Units 16:15 RBC (4.30-5.90) m/uL Hgb (13.0-17.5) gm/dL Hct (39.0-53.0) % Plt Count (150-450) k/uL Lymphocytes # (1.0-4.8) k/uL Sodium (137-145) mmol/L BUN (9-20) mg/dL Glucose (74-99) mg/dL POC Glucose (mg/dL) 137 H (75-99) mg/dL Calcium (8.4-10.2) mg/dL Alkaline Phosphatase (38-126) U/L Total Protein (6.3-8.2) g/dL Albumin (3.5-5.0) g/dL Assessment and Plan Plan: 1. Symptomatic aortic stenosis status post valve replacement with bioprosthetic valve Usual postoperative care by surgery Steadily has been increasing activity Incentive spirometer 2. Hypertension Blood pressure has been stable 3. Chronic systolic congestive heart failure Patient appears euvolemic and compensated 4. Chronic coronary artery disease Aspirin continued BB 5. Chronic atrial fibrillation warfarin managment per primary service once all wires out 6. Anemia and thrombcytopenia potop, susana and improving
[2018-05-17] MEDS ORDERED: WARFARIN 5 MG TAB PO ONE (18:00)
[2018-05-17] MEDS: FINASTERIDE 5 MG TAB PO SCH (20:53)
[2018-05-17] MEDS: METOPROLOL TARTRATE 25 MG TAB PO SCH (20:53)
[2018-05-17] MEDS: SENNOSIDES-DOCUSATE SODIUM 1 EACH TAB PO SCH (20:53)
[2018-05-17 21:03] LABS: Glucose,Whole Blood 143 mg/dL (75-99)
[2018-05-18 02:03] LABS: Glucose,Whole Blood 116 mg/dL (75-99)
[2018-05-18 05:44] LABS: Glucose,Whole Blood 121 mg/dL (75-99)
[2018-05-18] MEDS: INSULIN ASPART 100 UNIT/ML 1 ML 10 ML VIAL SQ SCH ×4 (06:30→21:51)
[2018-05-18] MEDS: PANTOPRAZOLE 40 MG TABLET PO SCH (06:32)
[2018-05-18 06:42] LABS: Basophils % (A) 0 %; Eosinophils # (A) 0.2 k/uL (0-0.7); Eosinophils % (A) 3 %; HCT 22.6 % (39.0-53.0); HGB 7.8 gm/dL (13.0-17.5); Lymphocytes # (A) 0.5 k/uL (1.0-4.8); Lymphocytes % (A) 9 %; MCH 29.9 pg (25.0-35.0); MCHC 34.5 g/dL (31.0-37.0); MCV 86.8 fL (80.0-100.0); Mean Platelet Volume 8.4; Monocytes # (A) 0.4 k/uL (0-1.0); Monocytes % (A) 7 %; Neutrophils # (A) 4.4 k/uL (1.3-7.7); Neutrophils % (A) 80 %; Platelet Count 108 k/uL (150-450); RDW 14.4 % (11.5-15.5); WBC 5.6 k/uL (3.8-10.6)
[2018-05-18 06:50] LABS: INR 1.1 (<1.2); Prothrombin Time 10.4 sec (9.0-12.0)
--- NOTE | 2018-05-18 06:53 | XR ---
EXAMINATION TYPE: XR chest 1V portable DATE OF EXAM: 05/18/2018 HISTORY: Post op AVR. REFERENCE: Previous study dated 05/17/2018. FINDINGS: Lung volumes are prominent. There is bibasilar airspace disease. There are small effusions. The heart is enlarged. IMPRESSION: NO SIGNIFICANT INTERVAL CHANGE IN APPEARANCE THE CHEST.
[2018-05-18 06:55] LABS: Calcium 8.4 mg/dL (8.4-10.2); Potassium 3.8 mmol/L (3.5-5.1); Total Protein 5.2 g/dL (6.3-8.2)
[2018-05-18] MEDS: IPRATROPIUM-ALBUTEROL 3 ML NEB INHALATION SCH ×4 (07:31→19:48)
[2018-05-18] MEDS: HEPARIN SODIUM,PORCINE 5,000 UNIT/ML 1 ML VIAL SQ SCH ×3 (09:29→23:01)
[2018-05-18] MEDS: ATORVASTATIN 40 MG TAB PO SCH (09:30)
[2018-05-18] MEDS: METOPROLOL TARTRATE 25 MG TAB PO SCH ×2 (09:30→21:51)
[2018-05-18] MEDS: ASPIRIN 81 MG PO SCH (09:30)
[2018-05-18] MEDS: TAMSULOSIN 0.4 MG CAP.ER.24H PO SCH ×2 (09:31→21:52)
[2018-05-18] MEDS ORDERED: FUROSEMIDE 10 MG/ML 2 ML VIAL IV STA (09:56)
--- NOTE | 2018-05-18 10:53 | P.PN ---
Subjective Progress Note Date: 05/18/18 Principal diagnosis: Status post aortic valve replacement for aortic stenosis Progress note dated 05/15/2018 This is an 83-year-old gentleman who is postop day #1, status post aortic valve placement and excision of left atrial appendage for severe aortic stenosis. The patient was successfully extubated within 4 hours. The patient also has a history of mitral valve regurgitation chronic atrial fibrillation nicotine dependence anemia secondary to blood loss from the surgery, systolic dysfunction with an ejection fraction of 40-45% stable CAD hypertension hyperlipidemia BPH. Currently, the patient is not on any supplemental oxygen. He is Receiving IV cleviprex at 2 mg per hour. He is also on an insulin drip at 2.5 units per hour and lactated Ringer's IV at 50 mL an hour. The patient seemed be doing reasonably well. Certainly has pain at the surgical site. He denies any significant cough or wheezing. He is not practically short of breath. Denies any chest pain or chest discomfort other than surgical site pain. The patient's working on his incentive spirometer. As I mentioned above , he was able to be weaned and extubated within 4 hours. Progress note dated 05/16/2018 83-year-old male, postop day #2, status post aortic valve replacement and excision of left atrial appendage for severe aortic stenosis. The patient was successfully extubated within 4 hour time limit. The patient has a history of mitral valve regurgitation, chronic atrial fibrillation, nicotine dependence, anemia, systolic dysfunction with an ejection fraction of 40-45%, CAD, hypertension, hyperlipidemia and BPH. Currently, the patient is not receiving any supplemental oxygen. The IV is lactated Ringer's at 20 mL an hour. The patient is in atrial fibrillation with controlled ventricular response rate. In addition, the patient is able to get between 750 to 1000 mL on incentive spirometer. Currently, the patient does not have any complaints. Denies any chest pain or chest discomfort. He denies any shortness of breath cough wheezing phlegm production or hemoptysis. There is neither fever or chills or nausea vomiting or diarrhea. Patient is seen again today 05/17/2018 in follow-up on the selective care unit. He is currently resting quite comfortably in bed. He is awake and alert in no acute distress. He denies any worsening shortness of breath, cough or congestion. Chest x-ray reveals stable bilateral infiltrates and small effusions. Mild central venous congestion. He was given a dose of IV Lasix this morning. He is maintaining good O2 saturations in the mid 90s on room air. He's been afebrile. White count 5.7. Hemoglobin 7.6. Creatinine 0.90. He remains in atrial fibrillation. Anticoagulated with warfarin. Patient is seen again today 05/18/2018 in follow-up on the selective care unit. He is awake and alert in no acute distress. He's been up ambulating with assistance. He currently denies any worsening shortness of breath, cough or congestion. Today's chest x-ray shows small basilar effusions. He is maintaining good O2 saturations in the 90s on room air. He's working well with the incentive spirometer. He's been afebrile. White count 5.6. Hemoglobin 7.8. Creatinine 0.94. Objective - Vital Signs Vital signs: Vital Signs Temp 97.7 F 05/18/18 09:05 Pulse 88 05/18/18 09:05 Resp 18 05/18/18 09:05 BP 107/60 05/18/18 09:05 Pulse Ox 97 05/18/18 09:05 Intake & Output 05/17/18 05/18/18 05/18/18 18:59 06:59 18:59 Intake Total 600 20 50 Output Total 600 775 Balance 0 -755 50 Weight 95.3 kg Intake: IV 20 Invasive Line 4 10 Invasive Line 5 10 Oral 600 50 Output: Urine 600 775 Other: Voiding Method Toilet Urinal Urinal # Voids 2 ABP, PAP, CO, CI - Last Documented Arterial Blood Pressure 141/45 Pulmonary Artery Pressure 18/10 Cardiac Output 4.9 Cardiac Index 2.3 - Exam No acute distress, oriented 3. Not requiring supplemental oxygen. HEENT examination is grossly unremarkable. Mucous membranes are moist. No oral lesions. Neck supple. Full range of motion. No adenopathy thyromegaly or neck vein distention. Cardiovascular examination reveals irregular rhythm rate. S1-S2 normal. No S3 or S4. No discernible murmur noted. Heart sounds are distant. Lungs reveal improving bilateral breath sounds. Crackles in the bilateral posterior bases. Abdomen soft bowel sounds are heard. No masses or tenderness. Extremities are intact. No cyanosis clubbing or edema. Skin is without rash or lesion. Neurologic examination is brief but nonfocal. - Labs CBC & Chem 7: 05/18/18 06:07 05/18/18 06:07 Labs: Abnormal Lab Results - Last 24 Hours (Table) 05/17/18 05/17/18 05/17/18 Range/Units 11:31 16:15 21:02 RBC (4.30-5.90) m/uL Hgb (13.0-17.5) gm/dL Hct (39.0-53.0) % Plt Count (150-450) k/uL Lymphocytes # (1.0-4.8) k/uL BUN (9-20) mg/dL Glucose (74-99) mg/dL POC Glucose (mg/dL) 124 H 137 H 143 H (75-99) mg/dL Total Protein (6.3-8.2) g/dL Albumin (3.5-5.0) g/dL 05/18/18 05/18/18 05/18/18 Range/Units 02:01 05:42 06:07 RBC 2.60 L (4.30-5.90) m/uL Hgb 7.8 L (13.0-17.5) gm/dL Hct 22.6 L (39.0-53.0) % Plt Count 108 L (150-450) k/uL Lymphocytes # 0.5 L (1.0-4.8) k/uL BUN (9-20) mg/dL Glucose (74-99) mg/dL POC Glucose (mg/dL) 116 H 121 H (75-99) mg/dL Total Protein (6.3-8.2) g/dL Albumin (3.5-5.0) g/dL 05/18/18 Range/Units 06:07 RBC (4.30-5.90) m/uL Hgb (13.0-17.5) gm/dL Hct (39.0-53.0) % Plt Count (150-450) k/uL Lymphocytes # (1.0-4.8) k/uL BUN 29 H (9-20) mg/dL Glucose 104 H (74-99) mg/dL POC Glucose (mg/dL) (75-99) mg/dL Total Protein 5.2 L (6.3-8.2) g/dL Albumin 3.0 L (3.5-5.0) g/dL Assessment and Plan Assessment: Assessment Postop day #4, status post aortic valve replacement, intraoperative transesophageal echocardiogram, excision of left atrial appendage. History of severe aortic stenosis and moderate mitral valve regurgitation Status post routine postoperative ventilator management History of chronic atrial fibrillation History of chronic nicotine dependence History of anemia secondary to surgery. Left ventricular systolic dysfunction, with an ejection fraction of 40-45% Moderate pulmonary hypertension History of CAD History of hypertension History of hyperlipidemia History of BPH Plan: Recommend by Dr. Williamson. Chest x-ray and labs were reviewed. He is currently stable from the pulmonary standpoint. Continue his current treatment plan. He is working well with the incentive spirometer. We will increase his activity as tolerated. We'll continue to follow. I, the cosigning physician, performed a history & physical examination of the patient. Lungs sounds with crackles in the bilateral posterior bases. Maintaining good O2 saturations in the 90s on room air. I discussed the assessment and plan of care with my nurse practitioner, Brenda Matthew. I attest to the above note as dictated by her.
--- NOTE | 2018-05-18 11:17 | P.PN ---
Subjective Progress Note Date: 05/18/18 Principal diagnosis: Severe aortic valve stenosis. Moderate mitral valve regurgitation. Chronic atrial fibrillation on home Coumadin therapy for anticoagulation. Chronic, stable proximal LAD lesion 50%. Hypertension. Hyperlipidemia. Peripheral vascular disease. Deep vein thrombosis in 2014. Left ventricular systolic dysfunction with ejection fraction of 40-45%. Previous tobacco dependence. Mild COPD with preoperative FEV1 66% of predicted and BPH. POD #4 aortic valve replacement using a 25 mm bovine Inspiris bioprosthesis. Exclusion of the left atrial appendage using a 45 mm AtriClip. Intraoperative transesophageal echocardiogram and epi-aortic scanning. The Patient is sitting up to the bedside chair. He is in no acute distress. Denies any complaints of pain or shortness of breath at this time. He is tolerating oral intake. He reports that he ambulated in the [facility] hallway yesterday 2 and tolerated it well. Bowels are moving without difficulty. He remains afebrile. Objective - Vital Signs Vital signs: Vital Signs Temp 97.7 F 05/18/18 09:05 Pulse 88 05/18/18 09:05 Resp 18 05/18/18 09:05 BP 107/60 05/18/18 09:05 Pulse Ox 97 05/18/18 09:05 Intake & Output 05/17/18 05/18/18 05/18/18 18:59 06:59 18:59 Intake Total 600 20 50 Output Total 600 775 Balance 0 -755 50 Weight 95.3 kg Intake: IV 20 Invasive Line 4 10 Invasive Line 5 10 Oral 600 50 Output: Urine 600 775 Other: Voiding Method Toilet Urinal Urinal # Voids 2 ABP, PAP, CO, CI - Last Documented Arterial Blood Pressure 141/45 Pulmonary Artery Pressure 18/10 Cardiac Output 4.9 Cardiac Index 2.3 - Constitutional General appearance: Present: cooperative, no acute distress - Respiratory Details: Lung sounds essentially clear throughout, few scattered crackles to his bilateral bases. Respirations are symmetrical and nonlabored. Oxygen saturation are 96% on room air. He is achieving 1000 mL on his incentive spirometry. - Cardiovascular Details: Irregular rhythm with controlled rate. S1 and S2 present, negative for S3, gallop or murmur. Sternum is stable. Remote telemetry showing atrial fibrillation heart rate 76. No edema present. Knee-high SABI hose and sequential compression devices in place to his bilateral lower extremities. Heart hugger's in place and he is demonstrating appropriate use. Ventricular epicardial pacemaker wires were removed yesterday. - Gastrointestinal Gastrointestinal Comment(s): Abdomen is soft, nontender and nondistended. Active bowel sounds all 4 abdominal quadrants. Tolerating oral intake. Passing flatus. Bowel movement this a.m. - Genitourinary Genitourinary Comment(s): Voiding clear yellow urine. 575 mL output in the last 8 hours. Lasix 40 mg IV given yesterday 05/17/2018 and he diuresed 1050 mL. - Integumentary Integumentary Comment(s): Skin is warm and dry, no clubbing or cyanosis present. Midline sternal incision clean dry and approximated. No drainage or redness present. - Neurologic Neurologic: Present: CNII-XII intact - Musculoskeletal Musculoskeletal: Present: gait normal, generalized weakness, strength equal bilaterally - Psychiatric Psychiatric: Present: A&O x's 3, appropriate affect, intact judgment & insight - Allied health notes Allied health notes reviewed: nursing - Labs CBC & Chem 7: 05/18/18 06:07 05/18/18 06:07 Labs: Abnormal Lab Results - Last 24 Hours (Table) 05/17/18 05/17/18 05/17/18 Range/Units 11:31 16:15 21:02 RBC (4.30-5.90) m/uL Hgb (13.0-17.5) gm/dL Hct (39.0-53.0) % Plt Count (150-450) k/uL Lymphocytes # (1.0-4.8) k/uL BUN (9-20) mg/dL Glucose (74-99) mg/dL POC Glucose (mg/dL) 124 H 137 H 143 H (75-99) mg/dL Total Protein (6.3-8.2) g/dL Albumin (3.5-5.0) g/dL 05/18/18 05/18/18 05/18/18 Range/Units 02:01 05:42 06:07 RBC 2.60 L (4.30-5.90) m/uL Hgb 7.8 L (13.0-17.5) gm/dL Hct 22.6 L (39.0-53.0) % Plt Count 108 L (150-450) k/uL Lymphocytes # 0.5 L (1.0-4.8) k/uL BUN (9-20) mg/dL Glucose (74-99) mg/dL POC Glucose (mg/dL) 116 H 121 H (75-99) mg/dL Total Protein (6.3-8.2) g/dL Albumin (3.5-5.0) g/dL 05/18/18 Range/Units 06:07 RBC (4.30-5.90) m/uL Hgb (13.0-17.5) gm/dL Hct (39.0-53.0) % Plt Count (150-450) k/uL Lymphocytes # (1.0-4.8) k/uL BUN 29 H (9-20) mg/dL Glucose 104 H (74-99) mg/dL POC Glucose (mg/dL) (75-99) mg/dL Total Protein 5.2 L (6.3-8.2) g/dL Albumin 3.0 L (3.5-5.0) g/dL - Imaging and Cardiology Chest x-ray: report reviewed, image reviewed Assessment and Plan (1) BPH (benign prostatic hyperplasia) Current Visit: Yes Status: Chronic Code(s): N40.0 - BENIGN PROSTATIC HYPERPLASIA WITHOUT LOWER URINRY TRACT SYMP SNOMED Code(s): 771147653 (2) COPD (chronic obstructive pulmonary disease) Current Visit: Yes Status: Chronic Code(s): J44.9 - CHRONIC OBSTRUCTIVE PULMONARY DISEASE, UNSPECIFIED SNOMED Code(s): 88536479 (3) Chronic atrial fibrillation Current Visit: Yes Status: Chronic Code(s): I48.2 - CHRONIC ATRIAL FIBRILLATION SNOMED Code(s): 953541768 (4) Chronic left ventricular systolic dysfunction Current Visit: Yes Status: Chronic Code(s): I51.9 - HEART DISEASE, UNSPECIFIED SNOMED Code(s): 118949868 (5) Coronary artery disease Current Visit: Yes Status: Chronic Code(s): I25.10 - ATHSCL HEART DISEASE OF [place] CORONARY ARTERY W/O ANG PCTRS SNOMED Code(s): 01045369 (6) Hyperlipidemia Current Visit: Yes Status: Chronic Code(s): E78.5 - HYPERLIPIDEMIA, UNSPECIFIED SNOMED Code(s): 24102352 (7) Hypertension Current Visit: Yes Status: Chronic Code(s): I10 - ESSENTIAL (PRIMARY) HYPERTENSION SNOMED Code(s): 34329869 (8) Moderate mitral valve regurgitation Current Visit: Yes Status: Chronic Code(s): I34.0 - NONRHEUMATIC MITRAL ( VALVE) INSUFFICIENCY SNOMED Code(s): 71831408 (9) Peripheral vascular disease Current Visit: Yes Status: Chronic Code(s): I73.9 - PERIPHERAL VASCULAR DISEASE, UNSPECIFIED SNOMED Code(s): 761598405 (10) Severe aortic valve stenosis Current Visit: Yes Status: Chronic Code(s): I35.0 - NONRHEUMATIC AORTIC ( VALVE) STENOSIS SNOMED Code(s): 80394314 (11) History of DVT (deep vein thrombosis) Current Visit: No Status: Resolved Code(s): Z86.718 - PERSONAL HISTORY OF OTHER VENOUS THROMBOSIS AND EMBOLISM SNOMED Code(s): 121469691 (12) Tobacco dependence in remission Current Visit: No Status: Resolved Code(s): F17.201 - NICOTINE DEPENDENCE, UNSPECIFIED, IN REMISSION SNOMED Code(s): 330660606 Plan: 1. Continue low-dose aspirin, statin, Plavix, subcu heparin, beta kristopher. Will increase metoprolol 25 mg by mouth twice a day. 2. Ventricular epicardial pacemaker wires were removed yesterday 05/17/2018. 3. Encourage incentive spirometry is 10 times every hour. 4. Increase activity, ambulate as tolerated. PT/OT/cardiac rehab following. 5. GI/DVT prophylaxis. 6. Will monitor daily labs and x-rays. 7. Bronchodilators per pulmonology. 8. Continue Proscar, Flomax for BPH. 9. Insulin management per primary care service. 10. Pain control with current medication regimen. 11. Lasix 20 mg IV 1 now. 12. Discharge planning in place. Dr. Bernal's consult noted and appreciated. 13. Coumadin 5 mg by mouth 1 today. INR today is 1.1. 14. More recommendations to follow based on the patient's clinical course. Time with Patient: Greater than 30
[2018-05-18 12:01] LABS: Glucose,Whole Blood 131 mg/dL (75-99)
--- NOTE | 2018-05-18 12:42 | P.PN ---
Subjective Progress Note Date: 05/18/18 This is an 83-year-old gentleman who is postop status post aortic valve replacement with bovine bioprosthesis and excision of a left atrial appendage for severe aortic stenosis. Patient was seen and examined this morning, hemodynamically is doing well. Denies any difficulty in breathing, arrangements are being made for the patient transferred to rehab on Sunday. Objective - Vital Signs Vital signs: Vital Signs Temp 97.7 F 05/18/18 09:05 Pulse 88 05/18/18 11:30 Resp 18 05/18/18 09:05 BP 107/60 05/18/18 09:05 Pulse Ox 97 05/18/18 09:05 Intake & Output 05/17/18 05/18/18 05/18/18 18:59 06:59 18:59 Intake Total 600 20 50 Output Total 600 775 Balance 0 -755 50 Weight 95.3 kg Intake: IV 20 Invasive Line 4 10 Invasive Line 5 10 Oral 600 50 Output: Urine 600 775 Other: Voiding Method Toilet Urinal Urinal # Voids 2 ABP, PAP, CO, CI - Last Documented Arterial Blood Pressure 141/45 Pulmonary Artery Pressure 18/10 Cardiac Output 4.9 Cardiac Index 2.3 - Exam No acute distress, oriented 3. Not requiring supplemental oxygen. HEENT examination is grossly unremarkable. Mucous membranes are moist. No oral lesions. Neck supple. Full range of motion. No adenopathy thyromegaly or neck vein distention. Cardiovascular examination reveals irregular rhythm rate. S1-S2 normal. No S3 or S4. No discernible murmur noted. Heart sounds are distant. Lungs reveal improving bilateral breath sounds. Crackles in the bilateral posterior bases. Abdomen soft bowel sounds are heard. No masses or tenderness. Extremities are intact. No cyanosis clubbing or edema. Skin is without rash or lesion. Neurologic examination is brief but nonfocal. - Labs CBC & Chem 7: 05/18/18 06:07 05/18/18 06:07 Labs: Abnormal Lab Results - Last 24 Hours (Table) 05/17/18 05/17/18 05/18/18 Range/Units 16:15 21:02 02:01 RBC (4.30-5.90) m/uL Hgb (13.0-17.5) gm/dL Hct (39.0-53.0) % Plt Count (150-450) k/uL Lymphocytes # (1.0-4.8) k/uL BUN (9-20) mg/dL Glucose (74-99) mg/dL POC Glucose (mg/dL) 137 H 143 H 116 H (75-99) mg/dL Total Protein (6.3-8.2) g/dL Albumin (3.5-5.0) g/dL 05/18/18 05/18/18 05/18/18 Range/Units 05:42 06:07 06:07 RBC 2.60 L (4.30-5.90) m/uL Hgb 7.8 L (13.0-17.5) gm/dL Hct 22.6 L (39.0-53.0) % Plt Count 108 L (150-450) k/uL Lymphocytes # 0.5 L (1.0-4.8) k/uL BUN 29 H (9-20) mg/dL Glucose 104 H (74-99) mg/dL POC Glucose (mg/dL) 121 H (75-99) mg/dL Total Protein 5.2 L (6.3-8.2) g/dL Albumin 3.0 L (3.5-5.0) g/dL 05/18/18 Range/Units 11:39 RBC (4.30-5.90) m/uL Hgb (13.0-17.5) gm/dL Hct (39.0-53.0) % Plt Count (150-450) k/uL Lymphocytes # (1.0-4.8) k/uL BUN (9-20) mg/dL Glucose (74-99) mg/dL POC Glucose (mg/dL) 131 H (75-99) mg/dL Total Protein (6.3-8.2) g/dL Albumin (3.5-5.0) g/dL Assessment and Plan Plan: Assessment and plan #1 status post aortic valve replacement with bovine bioprosthesis for severe aortic stenosis #2 chronic persistent atrial fibrillation #3 nicotine dependence #4 hypertension #5 hyperlipidemia Plan We will continue the patient on his current medications. Arrangements are being made for the patient to be transferred to rehab on Sunday. DNP note has been reviewed, I agree with a documented findings and plan of care. Patient was seen and examined.
--- NOTE | 2018-05-18 15:51 | P.PN ---
Subjective Progress Note Date: 05/18/18 Patient reports he is doing better and his pain is well controlled. Patient stated that he has a bowel movement today but they were not loose. Patient is appetite is still low as per the nurse patient stated that he did not like the food in the hospital. Patient denies worsening shortness of breath, fever, chills, nausea, vomiting, headache, dizziness and denies rest of the review of system. Nurses reported no acute issues with him. Patient was given Coumadin started yesterday and today INR is 1.1. Patient hemoglobin is 7.8 which is stable. Objective - Vital Signs Vital signs: Vital Signs Temp 97.7 F 05/18/18 09:05 Pulse 72 05/18/18 11:35 Resp 16 05/18/18 11:35 BP 130/75 05/18/18 11:35 Pulse Ox 100 05/18/18 11:35 Intake & Output 05/17/18 05/18/18 05/18/18 18:59 06:59 18:59 Intake Total 600 20 50 Output Total 600 775 Balance 0 -755 50 Weight 95.3 kg Intake: IV 20 Invasive Line 4 10 Invasive Line 5 10 Oral 600 50 Output: Urine 600 775 Other: Voiding Method Toilet Urinal Urinal # Voids 2 ABP, PAP, CO, CI - Last Documented Arterial Blood Pressure 141/45 Pulmonary Artery Pressure 18/10 Cardiac Output 4.9 Cardiac Index 2.3 - Constitutional General appearance: Present: average body habitus, cooperative, no acute distress - EENT Eyes: Present: EOMI, normal appearance - Respiratory Respiratory: bilateral: CTA, negative: rales, rhonchi, wheezing - Cardiovascular Rhythm: regular Heart sounds: normal: S1, S2 - Gastrointestinal General gastrointestinal: Present: normal bowel sounds, soft. Absent: distended , organomegaly, tenderness - Neurologic Neurologic: Present: CNII-XII intact. Absent: focal deficits - Psychiatric Psychiatric: Present: A&O x's 3, appropriate affect, intact judgment & insight - Allied health notes Allied health notes reviewed: nursing - Labs CBC & Chem 7: 05/18/18 06:07 05/18/18 06:07 Labs: Abnormal Lab Results - Last 24 Hours (Table) 05/17/18 05/17/18 05/18/18 Range/Units 16:15 21:02 02:01 RBC (4.30-5.90) m/uL Hgb (13.0-17.5) gm/dL Hct (39.0-53.0) % Plt Count (150-450) k/uL Lymphocytes # (1.0-4.8) k/uL BUN (9-20) mg/dL Glucose (74-99) mg/dL POC Glucose (mg/dL) 137 H 143 H 116 H (75-99) mg/dL Total Protein (6.3-8.2) g/dL Albumin (3.5-5.0) g/dL 05/18/18 05/18/18 05/18/18 Range/Units 05:42 06:07 06:07 RBC 2.60 L (4.30-5.90) m/uL Hgb 7.8 L (13.0-17.5) gm/dL Hct 22.6 L (39.0-53.0) % Plt Count 108 L (150-450) k/uL Lymphocytes # 0.5 L (1.0-4.8) k/uL BUN 29 H (9-20) mg/dL Glucose 104 H (74-99) mg/dL POC Glucose (mg/dL) 121 H (75-99) mg/dL Total Protein 5.2 L (6.3-8.2) g/dL Albumin 3.0 L (3.5-5.0) g/dL 05/18/18 Range/Units 11:39 RBC (4.30-5.90) m/uL Hgb (13.0-17.5) gm/dL Hct (39.0-53.0) % Plt Count (150-450) k/uL Lymphocytes # (1.0-4.8) k/uL BUN (9-20) mg/dL Glucose (74-99) mg/dL POC Glucose (mg/dL) 131 H (75-99) mg/dL Total Protein (6.3-8.2) g/dL Albumin (3.5-5.0) g/dL Assessment and Plan (1) Hypertension Narrative/Plan: Low normal blood pressure but patient is asymptomatic will continue current management and monitor his vitals. Current Visit: Yes Status: Chronic Priority: Medium Code(s): I10 - ESSENTIAL (PRIMARY) HYPERTENSION SNOMED Code(s): 19841948 (2) Chronic atrial fibrillation Narrative/Plan: Heart rate is fairly well controlled, little bit irregularity on auscultation but mostly was regular. Patient will be given a second dose of warfarin today and INR will be monitored. Patient will be needing few days to get therapeutic INR. Current Visit: Yes Status: Chronic Priority: Medium Code(s): I48.2 - CHRONIC ATRIAL FIBRILLATION SNOMED Code(s): 867255325 (3) Coronary artery disease Narrative/Plan: Stable without any acute symptoms, continued current medical management Current Visit: Yes Status: Chronic Priority: Medium Code(s): I25.10 - ATHSCL HEART DISEASE OF [place] CORONARY ARTERY W/O ANG PCTRS SNOMED Code(s): 23732771 (4) COPD (chronic obstructive pulmonary disease) Narrative/Plan: Fairly stable on current management no clinical evidence of worsening symptoms. Current Visit: Yes Status: Chronic Priority: Low Code(s): J44.9 - CHRONIC OBSTRUCTIVE PULMONARY DISEASE, UNSPECIFIED SNOMED Code(s): 17543257 (5) Severe aortic valve stenosis Narrative/Plan: Status post aortic valve replacement with bioprosthetic valve, postoperative care per admitting surgical team. Current Visit: Yes Status: Chronic Priority: High Code(s): I35.0 - NONRHEUMATIC AORTIC (VALVE) STENOSIS SNOMED Code(s): 38375890 Plan: We will continue current medical management and continue to monitor him while he is in the hospital. Time with Patient: Less than 30
[2018-05-18 16:50] LABS: Glucose,Whole Blood 142 mg/dL (75-99)
[2018-05-18] MEDS ORDERED: WARFARIN 5 MG TAB PO ONE (18:00)
[2018-05-18 20:47] LABS: Glucose,Whole Blood 147 mg/dL (75-99)
[2018-05-18] MEDS: FINASTERIDE 5 MG TAB PO SCH (21:51)
[2018-05-18] MEDS: SENNOSIDES-DOCUSATE SODIUM 1 EACH TAB PO SCH (21:51)
[2018-05-18] MEDS: HYDROcodone/APAP 5-325MG 1 EACH TAB PO PRN (21:52)
[2018-05-19 02:07] LABS: Glucose,Whole Blood 128 mg/dL (75-99)
[2018-05-19 06:08] LABS: Glucose,Whole Blood 126 mg/dL (75-99)
[2018-05-19] MEDS: INSULIN ASPART 100 UNIT/ML 1 ML 10 ML VIAL SQ SCH ×4 (06:09→21:03)
[2018-05-19 06:24] LABS: Basophils % (A) 0 %; Eosinophils # (A) 0.2 k/uL (0-0.7); Eosinophils % (A) 3 %; HCT 23.1 % (39.0-53.0); HGB 7.7 gm/dL (13.0-17.5); Lymphocytes # (A) 0.6 k/uL (1.0-4.8); Lymphocytes % (A) 12 %; MCH 28.8 pg (25.0-35.0); MCHC 33.1 g/dL (31.0-37.0); MCV 87.1 fL (80.0-100.0); Monocytes # (A) 0.4 k/uL (0-1.0); Monocytes % (A) 9 %; Neutrophils # (A) 3.6 k/uL (1.3-7.7); Neutrophils % (A) 74 %; Platelet Count 129 k/uL (150-450); RBC 2.66 m/uL (4.30-5.90); RDW 14.3 % (11.5-15.5); WBC 4.9 k/uL (3.8-10.6)
[2018-05-19] MEDS: PANTOPRAZOLE 40 MG TABLET PO SCH (06:27)
[2018-05-19 06:40] LABS: INR 1.2 (<1.2); Prothrombin Time 11.4 sec (9.0-12.0)
[2018-05-19 06:43] LABS: Calcium 8.4 mg/dL (8.4-10.2); Potassium 3.8 mmol/L (3.5-5.1); Total Bilirubin 0.9 mg/dL (0.2-1.3); Total Protein 5.3 g/dL (6.3-8.2)
[2018-05-19] MEDS ORDERED: POTASSIUM CHLORIDE ER 20 MEQ TAB.ER PO STA (07:49)
[2018-05-19] MEDS: IPRATROPIUM-ALBUTEROL 3 ML NEB INHALATION SCH ×4 (07:50→19:56)
[2018-05-19] MEDS: HEPARIN SODIUM,PORCINE 5,000 UNIT/ML 1 ML VIAL SQ SCH ×3 (08:30→23:08)
[2018-05-19] MEDS: ASPIRIN 81 MG PO SCH (08:31)
[2018-05-19] MEDS: ATORVASTATIN 40 MG TAB PO SCH (08:31)
[2018-05-19] MEDS: METOPROLOL TARTRATE 25 MG TAB PO SCH ×2 (08:31→21:03)
[2018-05-19] MEDS: TAMSULOSIN 0.4 MG CAP.ER.24H PO SCH ×2 (08:31→21:04)
--- NOTE | 2018-05-19 10:06 | P.PN ---
Subjective Progress Note Date: 05/19/18 Principal diagnosis: Status post aortic valve replacement for aortic stenosis Progress note dated 05/15/2018 This is an 83-year-old gentleman who is postop day #1, status post aortic valve placement and excision of left atrial appendage for severe aortic stenosis. The patient was successfully extubated within 4 hours. The patient also has a history of mitral valve regurgitation chronic atrial fibrillation nicotine dependence anemia secondary to blood loss from the surgery, systolic dysfunction with an ejection fraction of 40-45% stable CAD hypertension hyperlipidemia BPH. Currently, the patient is not on any supplemental oxygen. He is Receiving IV cleviprex at 2 mg per hour. He is also on an insulin drip at 2.5 units per hour and lactated Ringer's IV at 50 mL an hour. The patient seemed be doing reasonably well. Certainly has pain at the surgical site. He denies any significant cough or wheezing. He is not practically short of breath. Denies any chest pain or chest discomfort other than surgical site pain. The patient's working on his incentive spirometer. As I mentioned above , he was able to be weaned and extubated within 4 hours. Progress note dated 05/16/2018 83-year-old male, postop day #2, status post aortic valve replacement and excision of left atrial appendage for severe aortic stenosis. The patient was successfully extubated within 4 hour time limit. The patient has a history of mitral valve regurgitation, chronic atrial fibrillation, nicotine dependence, anemia, systolic dysfunction with an ejection fraction of 40-45%, CAD, hypertension, hyperlipidemia and BPH. Currently, the patient is not receiving any supplemental oxygen. The IV is lactated Ringer's at 20 mL an hour. The patient is in atrial fibrillation with controlled ventricular response rate. In addition, the patient is able to get between 750 to 1000 mL on incentive spirometer. Currently, the patient does not have any complaints. Denies any chest pain or chest discomfort. He denies any shortness of breath cough wheezing phlegm production or hemoptysis. There is neither fever or chills or nausea vomiting or diarrhea. Progress note dated 05/19/2018 83-year-old male postop day #5 status post aortic valve replacement and excision of left atrial appendage for severe aortic stenosis. The patient's doing relatively well. Has a history of mitral valve regurgitation chronic atrial fibrillation nicotine dependence anemia systolic dysfunction with an ejection fraction of about 40% CAD hypertension hyperlipidemia and BPH. The patient has been weaned off of supplemental oxygen. The patient will likely be discharged to inpatient rehabilitation. He denies any chest pain or chest discomfort. There is no shortness of breath. No phlegm production. No nausea vomiting or diarrhea. No GI or issues. Objective - Vital Signs Vital signs: Vital Signs Temp 97.5 F L 05/19/18 08:00 Pulse 77 05/19/18 08:01 Resp 18 05/19/18 08:00 BP 116/57 05/19/18 08:00 Pulse Ox 95 05/19/18 08:00 Intake & Output 05/18/18 05/19/18 05/19/18 18:59 06:59 18:59 Intake Total 250 10 Output Total 850 700 Balance -600 -690 Weight 94.1 kg Intake: IV 10 Invasive Line 5 10 Oral 250 Output: Urine 850 700 Other: Voiding Method Urinal Urinal # Voids 1 # Bowel Movements 0 ABP, PAP, CO, CI - Last Documented Arterial Blood Pressure 141/45 Pulmonary Artery Pressure 18/10 Cardiac Output 4.9 Cardiac Index 2.3 - Exam No acute distress, oriented 3. Not requiring supplemental oxygen. HEENT examination is grossly unremarkable. Mucous membranes are moist. No oral lesions. Neck supple. Full range of motion. No adenopathy thyromegaly or neck vein distention. Cardiovascular examination reveals regular rhythm rate. S1-S2 normal. No S3 or S4. No discernible murmur noted. Heart sounds are distant. Lungs reveal improving bilateral breath sounds. There are a few scattered crackles. No wheezes. No rhonchi. Breath sounds are equal bilaterally. Abdomen soft bowel sounds are heard. No masses or tenderness. Extremities are intact. No cyanosis clubbing or edema. Skin is without rash or lesion. Neurologic examination is brief but nonfocal. - Labs CBC & Chem 7: 05/19/18 05:33 05/19/18 05:33 Labs: Abnormal Lab Results - Last 24 Hours (Table) 05/18/18 05/18/18 05/18/18 Range/Units 11:39 16:43 20:44 RBC (4.30-5.90) m/uL Hgb (13.0-17.5) gm/dL Hct (39.0-53.0) % Plt Count (150-450) k/uL Lymphocytes # (1.0-4.8) k/uL INR (<1.2) BUN (9-20) mg/dL Glucose (74-99) mg/dL POC Glucose (mg/dL) 131 H 142 H 147 H (75-99) mg/dL Total Protein (6.3-8.2) g/dL Albumin (3.5-5.0) g/dL 05/19/18 05/19/18 05/19/18 Range/Units 02:06 05:33 05:33 RBC 2.66 L (4.30-5.90) m/uL Hgb 7.7 L (13.0-17.5) gm/dL Hct 23.1 L (39.0-53.0) % Plt Count 129 L (150-450) k/uL Lymphocytes # 0.6 L (1.0-4.8) k/uL INR (<1.2) BUN 30 H (9-20) mg/dL Glucose 108 H (74-99) mg/dL POC Glucose (mg/dL) 128 H (75-99) mg/dL Total Protein 5.3 L (6.3-8.2) g/dL Albumin 3.0 L (3.5-5.0) g/dL 05/19/18 05/19/18 Range/Units 05:33 06:07 RBC (4.30-5.90) m/uL Hgb (13.0-17.5) gm/dL Hct (39.0-53.0) % Plt Count (150-450) k/uL Lymphocytes # (1.0-4.8) k/uL INR 1.2 H (<1.2) BUN (9-20) mg/dL Glucose (74-99) mg/dL POC Glucose (mg/dL) 126 H (75-99) mg/dL Total Protein (6.3-8.2) g/dL Albumin (3.5-5.0) g/dL Assessment and Plan Assessment: Assessment Postop day #5, status post aortic valve replacement, intraoperative transesophageal echocardiogram, excision of left atrial appendage. History of severe aortic stenosis and moderate mitral valve regurgitation Status post routine postoperative ventilator management History of chronic atrial fibrillation History of chronic nicotine dependence History of anemia secondary to surgery. Left ventricular systolic dysfunction, with an ejection fraction of 40-45% Moderate pulmonary hypertension History of CAD History of hypertension History of hyperlipidemia History of BPH Plan: Plan dated 05/15/2018 The patient will continue with deep breathing coughing and clearing of secretions. We'll also recommend that he use incentive spirometer every hour. In addition, we will continue with the updraft treatments. White count is 6.8, hemoglobin 9.2, hematocrit 28.5, and platelet count 105,000. PT INR and PTT are all normal. Sodium potassium normal. Chlorides 109. Bicarbonate concentration anion gap BUN and creatinine all normal. Chest x-ray shows post surgical changes as well as some bibasilar atelectasis. Medications are reviewed and are appropriate. I will continue to follow this patient. Hopefully the patient will be weaned off the IV calcium channel kristopher and a short period of time. Critical care time 34 minutes Plan dated 05/16/2018. The patient remains on lactated Ringer's at 20 mL an hour. The patient is encouraged to continue to use his incentive spirometer every hour. In addition we recommend deep breathing coughing and clearing of secretions. The patient remains in atrial fibrillation with a controlled ventricular response rate. He denies any chest pain chest discomfort or difficulty breathing. There is no cough or phlegm production or hemoptysis. There is neither fever or chills or any or GI issues. We will continue to follow the patient until discharge. Chest x-ray is relatively stable showing a bit of a fluid overload as well as by basilar atelectasis and small to moderate pleural effusions bilaterally. Critical care time 31 minutes Plan dated 05/19/2018 The patient seemed be doing relatively well. Denies any difficulty breathing coughing wheezing or shortness of breath. The patient has been weaned off of oxygen therapy. We encourage him to use incentive spirometer every hour while awake. In addition, we continue with updrafts 4 times a day and when necessary. Finally, we recommend deep breathing coughing and clearing of secretions. White count 4.9 hemoglobin 7.7 hematocrit 23.1 and platelet count 29,000. Electrolytes look good. BUN 30 creatinine 0.93. No chest x-ray today she. Time with Patient: Less than 30
--- NOTE | 2018-05-19 10:41 | P.PN ---
Subjective Progress Note Date: 05/19/18 Principal diagnosis: Severe aortic valve stenosis. Moderate mitral valve regurgitation. Chronic atrial fibrillation on home Coumadin therapy for anticoagulation. Chronic, stable proximal LAD lesion 50%. Hypertension. Hyperlipidemia. Peripheral vascular disease. Deep vein thrombosis in 2014. Left ventricular systolic dysfunction with ejection fraction of 40-45%. Previous tobacco dependence. Mild COPD with preoperative FEV1 66% of predicted and BPH. POD #5 aortic valve replacement using a 25 mm bovine Inspiris bioprosthesis. Exclusion of the left atrial appendage using a 45 mm AtriClip. Intraoperative transesophageal echocardiogram and epi-aortic scanning. The Patient is sitting up to the bedside chair. He is in no acute distress. Denies any complaints of pain or shortness of breath at this time. He is tolerating oral intake. He reports that he ambulated in the [facility] hallway yesterday 1 and tolerated it well. Bowels are moving without difficulty. He remains afebrile. He reports he feels ready to be transferred to inpatient rehab. Objective - Vital Signs Vital signs: Vital Signs Temp 97.5 F L 05/19/18 08:00 Pulse 77 05/19/18 08:01 Resp 18 05/19/18 08:00 BP 116/57 05/19/18 08:00 Pulse Ox 95 05/19/18 08:00 Intake & Output 05/18/18 05/19/18 05/19/18 18:59 06:59 18:59 Intake Total 250 10 Output Total 850 700 Balance -600 -690 Weight 94.1 kg Intake: IV 10 Invasive Line 5 10 Oral 250 Output: Urine 850 700 Other: Voiding Method Urinal Urinal # Voids 1 # Bowel Movements 0 ABP, PAP, CO, CI - Last Documented Arterial Blood Pressure 141/45 Pulmonary Artery Pressure 18/10 Cardiac Output 4.9 Cardiac Index 2.3 - Constitutional General appearance: Present: cooperative, no acute distress - Respiratory Details: Lungs sounds essentially clear throughout, diminished to his bilateral bases. Respirations are symmetrical and nonlabored. Oxygen saturation are 96% on room air. He is achieving 1250 mL on his incentive spirometry. - Cardiovascular Details: Irregular rhythm and controlled rate. S1 and S2 present, negative for S3, gallop or murmur. Sternum is stable. Remote telemetry showing atrial fibrillation heart rate 81. Heart hugger is in place and he is demonstrating appropriate use. No edema present. Knee-high SABI hose and sequential compression devices in place to his bilateral lower extremities. - Gastrointestinal Gastrointestinal Comment(s): Abdomen is soft, nontender and nondistended. Active bowel sounds all 4 abdominal quadrants. Tolerating oral intake. Bowel movement this a.m. - Genitourinary Genitourinary Comment(s): Voiding clear yellow urine. 700 mL output in the last 8 hours. - Integumentary Integumentary Comment(s): Skin is warm and dry. No clubbing or cyanosis present. Midline sternal incision clean dry and approximated. No drainage or redness present. - Neurologic Neurologic: Present: CNII-XII intact - Musculoskeletal Musculoskeletal: Present: gait normal, generalized weakness, strength equal bilaterally - Psychiatric Psychiatric: Present: A&O x's 3, appropriate affect, intact judgment & insight - Allied health notes Allied health notes reviewed: nursing - Labs CBC & Chem 7: 05/19/18 05:33 05/19/18 05:33 Labs: Abnormal Lab Results - Last 24 Hours (Table) 05/18/18 05/18/18 05/18/18 Range/Units 11:39 16:43 20:44 RBC (4.30-5.90) m/uL Hgb (13.0-17.5) gm/dL Hct (39.0-53.0) % Plt Count (150-450) k/uL Lymphocytes # (1.0-4.8) k/uL INR (<1.2) BUN (9-20) mg/dL Glucose (74-99) mg/dL POC Glucose (mg/dL) 131 H 142 H 147 H (75-99) mg/dL Total Protein (6.3-8.2) g/dL Albumin (3.5-5.0) g/dL 05/19/18 05/19/18 05/19/18 Range/Units 02:06 05:33 05:33 RBC 2.66 L (4.30-5.90) m/uL Hgb 7.7 L (13.0-17.5) gm/dL Hct 23.1 L (39.0-53.0) % Plt Count 129 L (150-450) k/uL Lymphocytes # 0.6 L (1.0-4.8) k/uL INR (<1.2) BUN 30 H (9-20) mg/dL Glucose 108 H (74-99) mg/dL POC Glucose (mg/dL) 128 H (75-99) mg/dL Total Protein 5.3 L (6.3-8.2) g/dL Albumin 3.0 L (3.5-5.0) g/dL 05/19/18 05/19/18 Range/Units 05:33 06:07 RBC (4.30-5.90) m/uL Hgb (13.0-17.5) gm/dL Hct (39.0-53.0) % Plt Count (150-450) k/uL Lymphocytes # (1.0-4.8) k/uL INR 1.2 H (<1.2) BUN (9-20) mg/dL Glucose (74-99) mg/dL POC Glucose (mg/dL) 126 H (75-99) mg/dL Total Protein (6.3-8.2) g/dL Albumin (3.5-5.0) g/dL Assessment and Plan (1) BPH (benign prostatic hyperplasia) Current Visit: Yes Status: Chronic Code(s): N40.0 - BENIGN PROSTATIC HYPERPLASIA WITHOUT LOWER URINRY TRACT SYMP SNOMED Code(s): 495031263 (2) COPD (chronic obstructive pulmonary disease) Current Visit: Yes Status: Chronic Priority: Low Code(s): J44.9 - CHRONIC OBSTRUCTIVE PULMONARY DISEASE, UNSPECIFIED SNOMED Code(s): 19269963 (3) Chronic atrial fibrillation Current Visit: Yes Status: Chronic Priority: Medium Code(s): I48.2 - CHRONIC ATRIAL FIBRILLATION SNOMED Code(s): 838568221 (4) Chronic left ventricular systolic dysfunction Current Visit: Yes Status: Chronic Code(s): I51.9 - HEART DISEASE, UNSPECIFIED SNOMED Code(s): 993662134 (5) Coronary artery disease Current Visit: Yes Status: Chronic Priority: Medium Code(s): I25.10 - ATHSCL HEART DISEASE OF [place] CORONARY ARTERY W/O ANG PCTRS SNOMED Code(s): 67259753 (6) Hyperlipidemia Current Visit: Yes Status: Chronic Code(s): E78.5 - HYPERLIPIDEMIA, UNSPECIFIED SNOMED Code(s): 37517687 (7) Hypertension Current Visit: Yes Status: Chronic Priority: Medium Code(s): I10 - ESSENTIAL (PRIMARY) HYPERTENSION SNOMED Code(s): 40466371 (8) Moderate mitral valve regurgitation Current Visit: Yes Status: Chronic Code(s): I34.0 - NONRHEUMATIC MITRAL ( VALVE) INSUFFICIENCY SNOMED Code(s): 09783187 (9) Peripheral vascular disease Current Visit: Yes Status: Chronic Code(s): I73.9 - PERIPHERAL VASCULAR DISEASE, UNSPECIFIED SNOMED Code(s): 358115120 (10) Severe aortic valve stenosis Current Visit: Yes Status: Chronic Priority: High Code(s): I35.0 - NONRHEUMATIC AORTIC (VALVE) STENOSIS SNOMED Code(s): 25634148 (11) History of DVT (deep vein thrombosis) Current Visit: No Status: Resolved Code(s): Z86.718 - PERSONAL HISTORY OF OTHER VENOUS THROMBOSIS AND EMBOLISM SNOMED Code(s): 247583572 (12) Tobacco dependence in remission Current Visit: No Status: Resolved Code(s): F17.201 - NICOTINE DEPENDENCE, UNSPECIFIED, IN REMISSION SNOMED Code(s): 436655718 Plan: 1. Continue low-dose aspirin, statin, Plavix, subcu heparin, beta kristopher. We will increase his beta kristopher as tolerated. 2. Coumadin 5 mg by mouth 1 today for an INR of 1.2. 3. Encourage incentive spirometry is 10 times every hour. 4. Increase activity, ambulate as tolerated. PT/OT/cardiac rehab following. 5. GI/DVT prophylaxis. 6. Will monitor daily labs and x-rays. 7. Bronchodilators per pulmonology. 8. Continue Proscar, Flomax for BPH. 9. Insulin management per primary care service. 10. Pain control with current medication regimen. 11. More recommendations to follow based on the patient's clinical course. Discharge planning in place, anticipate discharge to inpatient rehab within the next 24 hours. Time with Patient: Greater than 30
[2018-05-19 11:53] LABS: Glucose,Whole Blood 127 mg/dL (75-99)
--- NOTE | 2018-05-19 11:54 | P.PN ---
Subjective This is a pleasant 83-year-old male status post aortic valve replacement with bovine bioprosthesis and excision of the left atrial appendage for severe aortic stenosis. Seen and examined sitting up in the chair this morning. Complains of mild exertional shortness of breath and getting up to the restroom. Denies any complaints of chest pain, palpitations, dizziness, nausea, vomiting or diaphoresis. Hemodynamically stable. Plan is for discharge to rehab facility tomorrow. Blood pressure 116/57 heart rate 90 afebrile maintaining oxygen saturation on room air. Objective - Vital Signs Vital signs: Vital Signs Temp 97.5 F L 05/19/18 08:00 Pulse 79 05/19/18 10:51 Resp 18 05/19/18 08:00 BP 116/57 05/19/18 08:00 Pulse Ox 95 05/19/18 08:00 Intake & Output 05/18/18 05/19/18 05/19/18 18:59 06:59 18:59 Intake Total 250 10 Output Total 850 700 Balance -600 -690 Weight 94.1 kg Intake: IV 10 Invasive Line 5 10 Oral 250 Output: Urine 850 700 Other: Voiding Method Urinal Urinal # Voids 1 # Bowel Movements 0 ABP, PAP, CO, CI - Last Documented Arterial Blood Pressure 141/45 Pulmonary Artery Pressure 18/10 Cardiac Output 4.9 Cardiac Index 2.3 - Exam GENERAL: Well-appearing, well-nourished and in no acute distress. NECK: Supple without JVD or thyromegaly. LUNGS: Breath sounds clear to auscultation bilaterally. Respiration equal and unlabored. No wheezes, rales or rhonchi. Diminished bilaterally. HEART: Regular rate and rhythm without murmurs, rubs or gallops. S1 and S2 heard. EXTREMITIES: Normal range of motion, no edema. No clubbing or cyanosis. Peripheral pulses intact. - Labs CBC & Chem 7: 05/19/18 05:33 05/19/18 05:33 Labs: Abnormal Lab Results - Last 24 Hours (Table) 05/18/18 05/18/18 05/18/18 Range/Units 11:39 16:43 20:44 RBC (4.30-5.90) m/uL Hgb (13.0-17.5) gm/dL Hct (39.0-53.0) % Plt Count (150-450) k/uL Lymphocytes # (1.0-4.8) k/uL INR (<1.2) BUN (9-20) mg/dL Glucose (74-99) mg/dL POC Glucose (mg/dL) 131 H 142 H 147 H (75-99) mg/dL Total Protein (6.3-8.2) g/dL Albumin (3.5-5.0) g/dL 05/19/18 05/19/18 05/19/18 Range/Units 02:06 05:33 05:33 RBC 2.66 L (4.30-5.90) m/uL Hgb 7.7 L (13.0-17.5) gm/dL Hct 23.1 L (39.0-53.0) % Plt Count 129 L (150-450) k/uL Lymphocytes # 0.6 L (1.0-4.8) k/uL INR (<1.2) BUN 30 H (9-20) mg/dL Glucose 108 H (74-99) mg/dL POC Glucose (mg/dL) 128 H (75-99) mg/dL Total Protein 5.3 L (6.3-8.2) g/dL Albumin 3.0 L (3.5-5.0) g/dL 05/19/18 05/19/18 Range/Units 05:33 06:07 RBC (4.30-5.90) m/uL Hgb (13.0-17.5) gm/dL Hct (39.0-53.0) % Plt Count (150-450) k/uL Lymphocytes # (1.0-4.8) k/uL INR 1.2 H (<1.2) BUN (9-20) mg/dL Glucose (74-99) mg/dL POC Glucose (mg/dL) 126 H (75-99) mg/dL Total Protein (6.3-8.2) g/dL Albumin (3.5-5.0) g/dL Assessment and Plan Assessment: ASSESSMENT Status post aortic valve replacement with bovine bioprosthesis and left atrial appendage removal for severe aortic stenosis Chronic persistent atrial fibrillation on long-term anticoagulation Hypertension Dyslipidemia COPD Peripheral vascular disease Former nicotine dependence PLAN Continue current medical regimen. Hemodynamically stable for transfer to rehabilitation center tomorrow. Nurse Practitioner note has been reviewed, I agree with a documented findings and plan of care. Patient was seen and examined.
--- NOTE | 2018-05-19 13:02 | XR ---
EXAMINATION TYPE: XR chest 1V portable DATE OF EXAM: 05/19/2018 HISTORY: Post op AVR. REFERENCE: Previous study dated 05/18/2018. FINDINGS: There has been a midline sternotomy. The heart is enlarged. There are small, bilateral effusions. There is bibasilar airspace disease. IMPRESSION: NO SIGNIFICANT CHANGE IN THE APPEARANCE OF THE CHEST.
--- NOTE | 2018-05-19 14:55 | P.PN ---
Subjective Progress Note Date: 05/19/18 Patient reports doing much better today and his was in the room she was updated as per patient's verbal consent and all questions were answered. Patient did have some mild shortness of breath with exertion especially going to the bathroom but he stated that overall he is improving. His hemoglobin was noted to be 7.7 g/dL which is stable from yesterday INR 1.2. Patient's renal function is stable. Patient stated that he had a good bowel movement today. Patient denies chest pain, palpitation, diaphoresis, headache, dizziness, fever , chills, nausea, vomiting, diarrhea and denies rest of the review system. Objective - Vital Signs Vital signs: Vital Signs Temp 97.2 F L 05/19/18 12:00 Pulse 88 05/19/18 12:00 Resp 18 05/19/18 12:00 BP 108/60 05/19/18 12:00 Pulse Ox 98 05/19/18 12:00 Intake & Output 05/18/18 05/19/18 05/19/18 18:59 06:59 18:59 Intake Total 250 10 Output Total 850 700 200 Balance -600 -690 -200 Weight 94.1 kg Intake: IV 10 Invasive Line 5 10 Oral 250 Output: Urine 850 700 200 Other: Voiding Method Urinal Urinal # Voids 1 # Bowel Movements 0 ABP, PAP, CO, CI - Last Documented Arterial Blood Pressure 141/45 Pulmonary Artery Pressure 18/10 Cardiac Output 4.9 Cardiac Index 2.3 - Constitutional General appearance: Present: cooperative, no acute distress - EENT Eyes: Present: EOMI, normal appearance - Respiratory Respiratory: bilateral: CTA, negative: rales, rhonchi, wheezing - Cardiovascular Rhythm: irregularly irregular Heart sounds: normal: S1, S2 - Gastrointestinal General gastrointestinal: Present: normal bowel sounds, soft - Neurologic Neurologic: Present: CNII-XII intact, focal deficits - Psychiatric Psychiatric: Present: A&O x's 3, appropriate affect, intact judgment & insight - Labs CBC & Chem 7: 05/19/18 05:33 05/19/18 05:33 Labs: Abnormal Lab Results - Last 24 Hours (Table) 05/18/18 05/18/18 05/19/18 Range/Units 16:43 20:44 02:06 RBC (4.30-5.90) m/uL Hgb (13.0-17.5) gm/dL Hct (39.0-53.0) % Plt Count (150-450) k/uL Lymphocytes # (1.0-4.8) k/uL INR (<1.2) BUN (9-20) mg/dL Glucose (74-99) mg/dL POC Glucose (mg/dL) 142 H 147 H 128 H (75-99) mg/dL Total Protein (6.3-8.2) g/dL Albumin (3.5-5.0) g/dL 05/19/18 05/19/18 05/19/18 Range/Units 05:33 05:33 05:33 RBC 2.66 L (4.30-5.90) m/uL Hgb 7.7 L (13.0-17.5) gm/dL Hct 23.1 L (39.0-53.0) % Plt Count 129 L (150-450) k/uL Lymphocytes # 0.6 L (1.0-4.8) k/uL INR 1.2 H (<1.2) BUN 30 H (9-20) mg/dL Glucose 108 H (74-99) mg/dL POC Glucose (mg/dL) (75-99) mg/dL Total Protein 5.3 L (6.3-8.2) g/dL Albumin 3.0 L (3.5-5.0) g/dL 05/19/18 05/19/18 Range/Units 06:07 11:27 RBC (4.30-5.90) m/uL Hgb (13.0-17.5) gm/dL Hct (39.0-53.0) % Plt Count (150-450) k/uL Lymphocytes # (1.0-4.8) k/uL INR (<1.2) BUN (9-20) mg/dL Glucose (74-99) mg/dL POC Glucose (mg/dL) 126 H 127 H (75-99) mg/dL Total Protein (6.3-8.2) g/dL Albumin (3.5-5.0) g/dL Assessment and Plan (1) Hypertension Narrative/Plan: Stable blood pressure at current management, although blood pressure is on the low normal side but patient did not had symptoms of dizziness and lightheadedness with ambulation. Will continue current treatment for now. Current Visit: Yes Status: Chronic Priority: Medium Code(s): I10 - ESSENTIAL (PRIMARY) HYPERTENSION SNOMED Code(s): 34854085 (2) Chronic atrial fibrillation Narrative/Plan: Rate well controlled, INR improving and today is 1.2, pharmacy dosing service on case to monitor and dose for warfarin. Current Visit: Yes Status: Chronic Priority: Medium Code(s): I48.2 - CHRONIC ATRIAL FIBRILLATION SNOMED Code(s): 047754180 (3) Coronary artery disease Narrative/Plan: Stable coronary artery disease without acute complaints, will continue current medical management Current Visit: Yes Status: Chronic Priority: Medium Code(s): I25.10 - ATHSCL HEART DISEASE OF [place] CORONARY ARTERY W/O ANG PCTRS SNOMED Code(s): 17677390 (4) COPD (chronic obstructive pulmonary disease) Narrative/Plan: Stable on current management. Current Visit: Yes Status: Chronic Priority: Low Code(s): J44.9 - CHRONIC OBSTRUCTIVE PULMONARY DISEASE, UNSPECIFIED SNOMED Code(s): 27118811 (5) Severe aortic valve stenosis Narrative/Plan: Your care. Current Visit: Yes Status: Chronic Priority: High Code(s): I35.0 - NONRHEUMATIC AORTIC (VALVE) STENOSIS SNOMED Code(s): 94629719 Plan: Patient is progressively improving and doing well in the therapy and medically stable. Patient reported that possible discharged and transferred to the rehab facility in the morning as he was told by his surgeon. Patient was again emphasized the need for incentive spirometry and its use and its good effects in decreasing the risk for infection and pneumonia. Patient was educated and then patient used the incentive spirometer appropriately. Time with Patient: Less than 30
[2018-05-19 16:53] LABS: Glucose,Whole Blood 130 mg/dL (75-99)
[2018-05-19] MEDS ORDERED: WARFARIN 5 MG TAB PO ONE (18:00)
[2018-05-19 20:46] LABS: Glucose,Whole Blood 148 mg/dL (75-99)
[2018-05-19] MEDS: FINASTERIDE 5 MG TAB PO SCH (21:03)
[2018-05-19] MEDS: SENNOSIDES-DOCUSATE SODIUM 1 EACH TAB PO SCH (21:07)
[2018-05-19] MEDS: HYDROcodone/APAP 5-325MG 1 EACH TAB PO PRN (21:08)
[2018-05-20 02:00] LABS: Glucose,Whole Blood 135 mg/dL (75-99)
[2018-05-20 05:53] LABS: Glucose,Whole Blood 130 mg/dL (75-99)
[2018-05-20] MEDS: INSULIN ASPART 100 UNIT/ML 1 ML 10 ML VIAL SQ SCH ×4 (06:01→20:34)
[2018-05-20] MEDS: PANTOPRAZOLE 40 MG TABLET PO SCH (06:04)
[2018-05-20 06:19] LABS: INR 1.6 (<1.2); Prothrombin Time 14.7 sec (9.0-12.0)
[2018-05-20 06:20] LABS: Basophils % (A) 0 %; Eosinophils # (A) 0.3 k/uL (0-0.7); Eosinophils % (A) 6 %; HCT 23.5 % (39.0-53.0); HGB 7.8 gm/dL (13.0-17.5); Hypochromasia Slight; Lymphocytes # (A) 0.7 k/uL (1.0-4.8); Lymphocytes % (A) 16 %; MCH 29.1 pg (25.0-35.0); MCHC 33.2 g/dL (31.0-37.0); MCV 87.4 fL (80.0-100.0); Mean Platelet Volume 7.8; Monocytes # (A) 0.4 k/uL (0-1.0); Monocytes % (A) 8 %; Neutrophils % (A) 67 %; Platelet Count 159 k/uL (150-450); RBC 2.69 m/uL (4.30-5.90); RDW 14.2 % (11.5-15.5); WBC 4.5 k/uL (3.8-10.6)
[2018-05-20 06:36] LABS: ALT 26 U/L (21-72); AST 18 U/L (17-59); Alkaline Phosphatase 48 U/L (38-126); Anion Gap 8 mmol/L; Blood Urea Nitrogen 28 mg/dL (9-20); Calcium 8.4 mg/dL (8.4-10.2); Carbon Dioxide 25 mmol/L (22-30); Chloride 104 mmol/L (98-107); Glucose 114 mg/dL (74-99); Sodium 137 mmol/L (137-145); Total Bilirubin 0.9 mg/dL (0.2-1.3); Total Protein 5.4 g/dL (6.3-8.2)
[2018-05-20] MEDS: IPRATROPIUM-ALBUTEROL 3 ML NEB INHALATION SCH ×4 (06:59→20:14)
--- NOTE | 2018-05-20 08:25 | XR ---
EXAMINATION TYPE: XR chest 1V portable DATE OF EXAM: 05/20/2018 COMPARISON: Prior chest x-ray 05/19/2018 HISTORY: Status post aortic valve replacement TECHNIQUE: Single frontal view of the chest is obtained. FINDINGS: The heart remains enlarged. Bibasilar increased density persists. There is no evident pneu mothorax. Interstitium is thought to be slightly increased, central vascularity is stable, postop bianka nges are again noted. Patient is rotated. IMPRESSION: Correlate for pulmonary venous hypertension and interstitial edema or volume overload, p ossible small effusions and associated atelectasis versus edema, follow-up recommended.
[2018-05-20] MEDS: ATORVASTATIN 40 MG TAB PO SCH (09:32)
[2018-05-20] MEDS: TAMSULOSIN 0.4 MG CAP.ER.24H PO SCH ×2 (09:32→20:35)
[2018-05-20] MEDS: ASPIRIN 81 MG PO SCH (09:32)
[2018-05-20] MEDS: HEPARIN SODIUM,PORCINE 5,000 UNIT/ML 1 ML VIAL SQ SCH ×3 (09:32→23:08)
[2018-05-20] MEDS: METOPROLOL TARTRATE 25 MG TAB PO SCH ×2 (09:32→20:35)
[2018-05-20] MEDS ORDERED: FUROSEMIDE 10 MG/ML 2 ML VIAL IV STA (09:45)
--- NOTE | 2018-05-20 10:07 | P.PN ---
Subjective Progress Note Date: 05/20/18 Principal diagnosis: Aortic stenosis Patient is a 83-year-old male with a past medical history of atrial fibrillation, hypertension, dyslipidemia, and aortic stenosis who presented for elective aortic valve replacement. He underwent surgical procedure on 05/14/18 of placement of a bioprosthetic aortic valve, IOANA, and exclusion of the left atrial appendage. He has been progressing well Since Operation. No Significant Setbacks. Plan Is to Discharge to Either Inpatient Rehab or Correction Facility. Patient seen and examined at bedside. His chest pain is well controlled and only when he deep breathes, no shortness of breath, no nausea, no vomiting, no constipation. Anxious to get over to rehab and start his "real work". Objective - Vital Signs Vital signs: Vital Signs Temp 98.4 F 05/20/18 08:00 Pulse 71 05/20/18 08:00 Resp 16 05/20/18 08:00 BP 103/56 05/20/18 08:00 Pulse Ox 91 L 05/20/18 08:00 Intake & Output 05/19/18 05/20/18 05/20/18 18:59 06:59 18:59 Intake Total 100 20 Output Total 550 550 Balance -450 -530 Weight 97.5 kg Intake: IV 20 0.9 20 Oral 100 Output: Urine 550 550 Other: Voiding Method Urinal # Voids 1 ABP, PAP, CO, CI - Last Documented Arterial Blood Pressure 141/45 Pulmonary Artery Pressure 18/10 Cardiac Output 4.9 Cardiac Index 2.3 - Exam General: non toxic, no distress, appears at stated age Derm: warm, dry Head: atraumatic, normocephalic, symmetric Eyes: EOMI, no lid lag, anicteric sclera Mouth: no lip lesion, mucus membranes moist Cardiovascular: S1S2 reg, no murmur, positive posterior tibial pulse bilateral, Lungs: Decreased breath sounds bilateral bases, no rhonchi, no rales , no accessory muscle use Abdominal: soft, nontender to palpation, no guarding, no appreciable organomegaly Ext: no gross muscle atrophy, trace ankle edema on the left, no contractures Neuro: CN II-XI grossly intact, no focal neuro deficits Psych: Alert, oriented, appropriate affect - Labs CBC & Chem 7: 05/20/18 05:44 05/20/18 05:44 Labs: Abnormal Lab Results - Last 24 Hours (Table) 05/19/18 05/19/18 05/19/18 Range/Units 11:27 16:41 20:44 RBC (4.30-5.90) m/uL Hgb (13.0-17.5) gm/dL Hct (39.0-53.0) % Lymphocytes # (1.0-4.8) k/uL PT (9.0-12.0) sec INR (<1.2) BUN (9-20) mg/dL Glucose (74-99) mg/dL POC Glucose (mg/dL) 127 H 130 H 148 H (75-99) mg/dL Total Protein (6.3-8.2) g/dL Albumin (3.5-5.0) g/dL 05/20/18 05/20/18 05/20/18 Range/Units 01:57 05:44 05:44 RBC 2.69 L (4.30-5.90) m/uL Hgb 7.8 L (13.0-17.5) gm/dL Hct 23.5 L (39.0-53.0) % Lymphocytes # 0.7 L (1.0-4.8) k/uL PT 14.7 H (9.0-12.0) sec INR 1.6 H (<1.2) BUN (9-20) mg/dL Glucose (74-99) mg/dL POC Glucose (mg/dL) 135 H (75-99) mg/dL Total Protein (6.3-8.2) g/dL Albumin (3.5-5.0) g/dL 05/20/18 05/20/18 Range/Units 05:44 05:51 RBC (4.30-5.90) m/uL Hgb (13.0-17.5) gm/dL Hct (39.0-53.0) % Lymphocytes # (1.0-4.8) k/uL PT (9.0-12.0) sec INR (<1.2) BUN 28 H (9-20) mg/dL Glucose 114 H (74-99) mg/dL POC Glucose (mg/dL) 130 H (75-99) mg/dL Total Protein 5.4 L (6.3-8.2) g/dL Albumin 3.0 L (3.5-5.0) g/dL Assessment and Plan Assessment: Aortic stenosis status post aortic valve repair -Management as per Dr. Lockhart's team Hypertension, controlled -Continue current medications -Follow blood pressures Chronic systolic congestive heart failure, compensated -Continue with beta kristopher, resume Vasotec once blood pressure can tolerate currently running 100 systolic -Monitor for signs of fluid overload and resume hydrochlorothiazide when determined appropriate by cardiothoracic Chronic atrial fibrillation -Coumadin as managed by primary team Anticipated acute blood loss anemia -Ferrous sulfate twice daily 30 days -Repeat CBC in 1 week Resolved: Thrombocytopenia DVT prophylaxis: Heparin Discussed with: Patient, Lilibeth chen, nursing Anticipated discharge: 24-[address]: Inpatient rehab versus intermediate facility A total of 25 minutes was spent on the care of this complex patient more than 50 % of the time was spent in counseling and care coordination. Medically stable for discharge at the discretion of cardiothorasic surgery.
--- NOTE | 2018-05-20 10:10 | P.PN ---
Subjective Progress Note Date: 05/20/18 Principal diagnosis: Severe aortic valve stenosis. Moderate mitral valve regurgitation. Chronic atrial fibrillation on Coumadin for anticoagulation. Chronic, stable proximal LAD lesion 50%. Hypertension. Hyperlipidemia. Peripheral vascular disease. Deep vein thrombosis in 2014. Left ventricular systolic dysfunction with ejection fraction of 40-45%. Previous tobacco dependence. Mild COPD with preoperative FEV1 66% of predicted. BPH. POD #6 aortic valve replacement using a 25 mm bovine Inspiris bioprosthesis. Exclusion of the left atrial appendage using a 45 mm AtriClip. Intraoperative transesophageal echocardiogram and epi-aortic scanning. Patient is currently sitting up in bed eating breakfast in no acute distress. Denies pain, shortness of breath. Has been ambulating in the hallway on 6 E. selective care. He is hemodynamically stable. Objective - Vital Signs Vital signs: Vital Signs Temp 98.4 F 05/20/18 08:00 Pulse 71 05/20/18 08:00 Resp 16 05/20/18 08:00 BP 103/56 05/20/18 08:00 Pulse Ox 91 L 05/20/18 08:00 Intake & Output 05/19/18 05/20/18 05/20/18 18:59 06:59 18:59 Intake Total 100 20 Output Total 550 550 Balance -450 -530 Weight 97.5 kg Intake: IV 20 0.9 20 Oral 100 Output: Urine 550 550 Other: Voiding Method Urinal # Voids 1 ABP, PAP, CO, CI - Last Documented Arterial Blood Pressure 141/45 Pulmonary Artery Pressure 18/10 Cardiac Output 4.9 Cardiac Index 2.3 - Constitutional General appearance: Present: cooperative, no acute distress - Respiratory Details: Lungs sounds diminished in the bases bilaterally. Respirations even, nonlabored. Currently on room air with oxygen saturation 96%. Able to achieve 1250 mL on his incentive spirometry. Effective cough. - Cardiovascular Details: S1, S2 present. Irregular rate and rhythm, chronic atrial fibrillation on telemetry. Sternum stable. Palpable peripheral pulses bilaterally. No edema present. No calf pain or tenderness noted. Heart hugger in place with patient demonstrating appropriate use. Antiembolism stockings, SCDs present. - Gastrointestinal Gastrointestinal Comment(s): Abdomen soft, nontender, nondistended. Active bowel sounds 4 quadrants. Tolerating diet. Positive bowel movement. - Genitourinary Genitourinary Comment(s): Continues to void clear, yellow urine, output 100-300 mL at a time. - Integumentary Integumentary Comment(s): Skin is warm and dry with evidence of good perfusion. Anterior chest incision well approximated and covered with dry intact dressing. - Neurologic Neurologic: Present: CNII-XII intact - Musculoskeletal Musculoskeletal: Present: gait normal, strength equal bilaterally - Psychiatric Psychiatric: Present: A&O x's 3, appropriate affect, intact judgment & insight - Allied health notes Allied health notes reviewed: nursing - Labs CBC & Chem 7: 05/20/18 05:44 05/20/18 05:44 Labs: Abnormal Lab Results - Last 24 Hours (Table) 05/19/18 05/19/18 05/19/18 Range/Units 11:27 16:41 20:44 RBC (4.30-5.90) m/uL Hgb (13.0-17.5) gm/dL Hct (39.0-53.0) % Lymphocytes # (1.0-4.8) k/uL PT (9.0-12.0) sec INR (<1.2) BUN (9-20) mg/dL Glucose (74-99) mg/dL POC Glucose (mg/dL) 127 H 130 H 148 H (75-99) mg/dL Total Protein (6.3-8.2) g/dL Albumin (3.5-5.0) g/dL 05/20/18 05/20/18 05/20/18 Range/Units 01:57 05:44 05:44 RBC 2.69 L (4.30-5.90) m/uL Hgb 7.8 L (13.0-17.5) gm/dL Hct 23.5 L (39.0-53.0) % Lymphocytes # 0.7 L (1.0-4.8) k/uL PT 14.7 H (9.0-12.0) sec INR 1.6 H (<1.2) BUN (9-20) mg/dL Glucose (74-99) mg/dL POC Glucose (mg/dL) 135 H (75-99) mg/dL Total Protein (6.3-8.2) g/dL Albumin (3.5-5.0) g/dL 05/20/18 05/20/18 Range/Units 05:44 05:51 RBC (4.30-5.90) m/uL Hgb (13.0-17.5) gm/dL Hct (39.0-53.0) % Lymphocytes # (1.0-4.8) k/uL PT (9.0-12.0) sec INR (<1.2) BUN 28 H (9-20) mg/dL Glucose 114 H (74-99) mg/dL POC Glucose (mg/dL) 130 H (75-99) mg/dL Total Protein 5.4 L (6.3-8.2) g/dL Albumin 3.0 L (3.5-5.0) g/dL - Imaging and Cardiology Chest x-ray: report reviewed, image reviewed Assessment and Plan (1) Severe aortic valve stenosis Current Visit: Yes Status: Chronic Priority: High Code(s): I35.0 - NONRHEUMATIC AORTIC (VALVE) STENOSIS SNOMED Code(s): 95876983 (2) Moderate mitral valve regurgitation Current Visit: Yes Status: Chronic Code(s): I34.0 - NONRHEUMATIC MITRAL ( VALVE) INSUFFICIENCY SNOMED Code(s): 38216977 (3) Chronic atrial fibrillation Current Visit: Yes Status: Chronic Priority: Medium Code(s): I48.2 - CHRONIC ATRIAL FIBRILLATION SNOMED Code(s): 283970402 (4) Hypertension Current Visit: Yes Status: Chronic Priority: Medium Code(s): I10 - ESSENTIAL (PRIMARY) HYPERTENSION SNOMED Code(s): 36554415 (5) Hyperlipidemia Current Visit: Yes Status: Chronic Code(s): E78.5 - HYPERLIPIDEMIA, UNSPECIFIED SNOMED Code(s): 30125837 (6) Coronary artery disease Current Visit: Yes Status: Chronic Priority: Medium Code(s): I25.10 - ATHSCL HEART DISEASE OF [place] CORONARY ARTERY W/O ANG PCTRS SNOMED Code(s): 93944698 (7) Peripheral vascular disease Current Visit: Yes Status: Chronic Code(s): I73.9 - PERIPHERAL VASCULAR DISEASE, UNSPECIFIED SNOMED Code(s): 431345395 (8) History of DVT (deep vein thrombosis) Current Visit: No Status: Resolved Code(s): Z86.718 - PERSONAL HISTORY OF OTHER VENOUS THROMBOSIS AND EMBOLISM SNOMED Code(s): 342790754 (9) BPH (benign prostatic hyperplasia) Current Visit: Yes Status: Chronic Code(s): N40.0 - BENIGN PROSTATIC HYPERPLASIA WITHOUT LOWER URINRY TRACT SYMP SNOMED Code(s): 504230434 (10) COPD (chronic obstructive pulmonary disease) Current Visit: Yes Status: Chronic Priority: Low Code(s): J44.9 - CHRONIC OBSTRUCTIVE PULMONARY DISEASE, UNSPECIFIED SNOMED Code(s): 04945450 (11) Tobacco dependence in remission Current Visit: No Status: Resolved Code(s): F17.201 - NICOTINE DEPENDENCE, UNSPECIFIED, IN REMISSION SNOMED Code(s): 138897280 (12) Chronic left ventricular systolic dysfunction Current Visit: Yes Status: Chronic Code(s): I51.9 - HEART DISEASE, UNSPECIFIED SNOMED Code(s): 945944592 Plan: 1. Continue low-dose aspirin, statin, subcu heparin, beta kristopher. Will increase beta kristopher therapy as tolerated. 2. Coumadin 5 mg to be given today. Daily PT/INRs. Goal INR 2-2.5. 3. Encourage incentive spirometry is 10 times every hour. 4. Increase activity, ambulate as tolerated. PT/OT/cardiac rehab following. 5. GI/DVT prophylaxis. 6. Will give Lasix 20 mg IV push 1 today. 7. Will monitor daily labs and x-rays. 8. Bronchodilators per pulmonology. 9. Continue Proscar, Flomax for BPH. 10. Insulin management per primary care service. 11. Pain control with current medication regimen. 12. Discharge planning in progress. Plan is for inpatient rehab once insurance authorization is obtained. Patient may be discharged as soon as authorization is obtained and a bed is available. 13. More recommendations to follow. Time with Patient: Greater than 30
[2018-05-20 11:29] LABS: Glucose,Whole Blood 125 mg/dL (75-99)
--- NOTE | 2018-05-20 12:18 | P.PN ---
Subjective Progress Note Date: 05/20/18 This is an 83-year-old gentleman who is postop status post aortic valve replacement with bovine bioprosthesis and excision of a left atrial appendage for severe aortic stenosis. Patient was seen and examined this morning, hemodynamically is doing well. Denies any difficulty in breathing, arrangements are being made for the patient transferred to rehab on Sunday. 05/20/2018 Patient seen and examined this morning, feeling well overall. Repeat chest x- ray did show some congestive heart failure and the patient was given a one-time dose of IV Lasix. Arrangements are being made for the patient to be transferred to inpatient rehab today. Hemodynamically he is stable. Objective - Vital Signs Vital signs: Vital Signs Temp 98.4 F 05/20/18 08:00 Pulse 80 05/20/18 11:02 Resp 16 05/20/18 08:00 BP 103/56 05/20/18 08:00 Pulse Ox 91 L 05/20/18 08:00 Intake & Output 05/19/18 05/20/18 05/20/18 18:59 06:59 18:59 Intake Total 100 20 Output Total 550 550 Balance -450 -530 Weight 97.5 kg Intake: IV 20 0.9 20 Oral 100 Output: Urine 550 550 Other: Voiding Method Urinal # Voids 1 ABP, PAP, CO, CI - Last Documented Arterial Blood Pressure 141/45 Pulmonary Artery Pressure 18/10 Cardiac Output 4.9 Cardiac Index 2.3 - Exam No acute distress, oriented 3. Not requiring supplemental oxygen. HEENT examination is grossly unremarkable. Mucous membranes are moist. No oral lesions. Neck supple. Full range of motion. No adenopathy thyromegaly or neck vein distention. Cardiovascular examination reveals irregular rhythm rate. S1-S2 normal. No S3 or S4. No discernible murmur noted. Heart sounds are distant. Lungs reveal improving bilateral breath sounds. Crackles in the bilateral posterior bases. Abdomen soft bowel sounds are heard. No masses or tenderness. Extremities are intact. No cyanosis clubbing or edema. Skin is without rash or lesion. Neurologic examination is brief but nonfocal. - Labs CBC & Chem 7: 05/20/18 05:44 05/20/18 05:44 Labs: Abnormal Lab Results - Last 24 Hours (Table) 05/19/18 05/19/18 05/20/18 Range/Units 16:41 20:44 01:57 RBC (4.30-5.90) m/uL Hgb (13.0-17.5) gm/dL Hct (39.0-53.0) % Lymphocytes # (1.0-4.8) k/uL PT (9.0-12.0) sec INR (<1.2) BUN (9-20) mg/dL Glucose (74-99) mg/dL POC Glucose (mg/dL) 130 H 148 H 135 H (75-99) mg/dL Total Protein (6.3-8.2) g/dL Albumin (3.5-5.0) g/dL 05/20/18 05/20/18 05/20/18 Range/Units 05:44 05:44 05:44 RBC 2.69 L (4.30-5.90) m/uL Hgb 7.8 L (13.0-17.5) gm/dL Hct 23.5 L (39.0-53.0) % Lymphocytes # 0.7 L (1.0-4.8) k/uL PT 14.7 H (9.0-12.0) sec INR 1.6 H (<1.2) BUN 28 H (9-20) mg/dL Glucose 114 H (74-99) mg/dL POC Glucose (mg/dL) (75-99) mg/dL Total Protein 5.4 L (6.3-8.2) g/dL Albumin 3.0 L (3.5-5.0) g/dL 05/20/18 05/20/18 Range/Units 05:51 11:15 RBC (4.30-5.90) m/uL Hgb (13.0-17.5) gm/dL Hct (39.0-53.0) % Lymphocytes # (1.0-4.8) k/uL PT (9.0-12.0) sec INR (<1.2) BUN (9-20) mg/dL Glucose (74-99) mg/dL POC Glucose (mg/dL) 130 H 125 H (75-99) mg/dL Total Protein (6.3-8.2) g/dL Albumin (3.5-5.0) g/dL Assessment and Plan Plan: Assessment and plan #1 status post aortic valve replacement with bovine bioprosthesis for severe aortic stenosis #2 chronic persistent atrial fibrillation #3 nicotine dependence #4 hypertension #5 hyperlipidemia Plan We will continue the patient on his current medications. Patient may benefit from a daily dose of by mouth Lasix. Arrangements are being made for the patient to be transferred to rehab today DNP note has been reviewed, I agree with a documented findings and plan of care. Patient was seen and examined.
--- NOTE | 2018-05-20 13:25 | P.PN ---
Subjective Progress Note Date: 05/20/18 Principal diagnosis: Status post aortic valve replacement for aortic stenosis Progress note dated 05/15/2018 This is an 83-year-old gentleman who is postop day #1, status post aortic valve placement and excision of left atrial appendage for severe aortic stenosis. The patient was successfully extubated within 4 hours. The patient also has a history of mitral valve regurgitation chronic atrial fibrillation nicotine dependence anemia secondary to blood loss from the surgery, systolic dysfunction with an ejection fraction of 40-45% stable CAD hypertension hyperlipidemia BPH. Currently, the patient is not on any supplemental oxygen. He is Receiving IV cleviprex at 2 mg per hour. He is also on an insulin drip at 2.5 units per hour and lactated Ringer's IV at 50 mL an hour. The patient seemed be doing reasonably well. Certainly has pain at the surgical site. He denies any significant cough or wheezing. He is not practically short of breath. Denies any chest pain or chest discomfort other than surgical site pain. The patient's working on his incentive spirometer. As I mentioned above , he was able to be weaned and extubated within 4 hours. Progress note dated 05/16/2018 83-year-old male, postop day #2, status post aortic valve replacement and excision of left atrial appendage for severe aortic stenosis. The patient was successfully extubated within 4 hour time limit. The patient has a history of mitral valve regurgitation, chronic atrial fibrillation, nicotine dependence, anemia, systolic dysfunction with an ejection fraction of 40-45%, CAD, hypertension, hyperlipidemia and BPH. Currently, the patient is not receiving any supplemental oxygen. The IV is lactated Ringer's at 20 mL an hour. The patient is in atrial fibrillation with controlled ventricular response rate. In addition, the patient is able to get between 750 to 1000 mL on incentive spirometer. Currently, the patient does not have any complaints. Denies any chest pain or chest discomfort. He denies any shortness of breath cough wheezing phlegm production or hemoptysis. There is neither fever or chills or nausea vomiting or diarrhea. Patient is seen again today 05/17/2018 in follow-up on the selective care unit. He is currently resting quite comfortably in bed. He is awake and alert in no acute distress. He denies any worsening shortness of breath, cough or congestion. Chest x-ray reveals stable bilateral infiltrates and small effusions. Mild central venous congestion. He was given a dose of IV Lasix this morning. He is maintaining good O2 saturations in the mid 90s on room air. He's been afebrile. White count 5.7. Hemoglobin 7.6. Creatinine 0.90. He remains in atrial fibrillation. Anticoagulated with warfarin. Patient is seen again today 05/18/2018 in follow-up on the selective care unit. He is awake and alert in no acute distress. He's been up ambulating with assistance. He currently denies any worsening shortness of breath, cough or congestion. Today's chest x-ray shows small basilar effusions. He is maintaining good O2 saturations in the 90s on room air. He's working well with the incentive spirometer. He's been afebrile. White count 5.6. Hemoglobin 7.8. Creatinine 0.94. Progress note dated 05/19/2018 83-year-old male postop day #5 status post aortic valve replacement and excision of left atrial appendage for severe aortic stenosis. The patient's doing relatively well. Has a history of mitral valve regurgitation chronic atrial fibrillation nicotine dependence anemia systolic dysfunction with an ejection fraction of about 40% CAD hypertension hyperlipidemia and BPH. The patient has been weaned off of supplemental oxygen. The patient will likely be discharged to inpatient rehabilitation. He denies any chest pain or chest discomfort. There is no shortness of breath. No phlegm production. No nausea vomiting or diarrhea. No GI or issues. Seen again today 05/19/2018 in follow-up on the selective care unit. He is currently awake and alert in no acute distress. He sitting up in a chair at the bedside. His appetite is good. He is working well with the incentive spirometer. He denies any worsening shortness of breath, cough or congestion. Chest x-ray shows small bilateral pleural effusions with associated atelectasis. He is maintaining good O2 saturations in the 90s on room air. He is afebrile. Hemodynamically stable. White count 4.5. Hemoglobin 7.8. INR 1.6. Creatinine 0.83. Objective - Vital Signs Vital signs: Vital Signs Temp 96 F L 05/20/18 12:00 Pulse 81 05/20/18 12:00 Resp 16 05/20/18 12:00 BP 103/66 05/20/18 12:00 Pulse Ox 96 05/20/18 12:00 Intake & Output 05/19/18 05/20/18 05/20/18 18:59 06:59 18:59 Intake Total 100 20 240 Output Total 550 550 Balance -450 -530 240 Weight 97.5 kg Intake: IV 20 0.9 20 Oral 100 240 Output: Urine 550 550 Other: Voiding Method Urinal # Voids 1 # Bowel Movements 0 ABP, PAP, CO, CI - Last Documented Arterial Blood Pressure 141/45 Pulmonary Artery Pressure 18/10 Cardiac Output 4.9 Cardiac Index 2.3 - Exam No acute distress, oriented 3. Not requiring supplemental oxygen. HEENT examination is grossly unremarkable. Mucous membranes are moist. No oral lesions. Neck supple. Full range of motion. No adenopathy thyromegaly or neck vein distention. Cardiovascular examination reveals irregular rhythm rate. S1-S2 normal. No S3 or S4. No discernible murmur noted. Heart sounds are distant. Lungs reveal improving bilateral breath sounds. Crackles in the bilateral posterior bases. Abdomen soft bowel sounds are heard. No masses or tenderness. Extremities are intact. No cyanosis clubbing or edema. Skin is without rash or lesion. Neurologic examination is brief but nonfocal. - Labs CBC & Chem 7: 05/20/18 05:44 05/20/18 05:44 Labs: Abnormal Lab Results - Last 24 Hours (Table) 05/19/18 05/19/18 05/20/18 Range/Units 16:41 20:44 01:57 RBC (4.30-5.90) m/uL Hgb (13.0-17.5) gm/dL Hct (39.0-53.0) % Lymphocytes # (1.0-4.8) k/uL PT (9.0-12.0) sec INR (<1.2) BUN (9-20) mg/dL Glucose (74-99) mg/dL POC Glucose (mg/dL) 130 H 148 H 135 H (75-99) mg/dL Total Protein (6.3-8.2) g/dL Albumin (3.5-5.0) g/dL 05/20/18 05/20/18 05/20/18 Range/Units 05:44 05:44 05:44 RBC 2.69 L (4.30-5.90) m/uL Hgb 7.8 L (13.0-17.5) gm/dL Hct 23.5 L (39.0-53.0) % Lymphocytes # 0.7 L (1.0-4.8) k/uL PT 14.7 H (9.0-12.0) sec INR 1.6 H (<1.2) BUN 28 H (9-20) mg/dL Glucose 114 H (74-99) mg/dL POC Glucose (mg/dL) (75-99) mg/dL Total Protein 5.4 L (6.3-8.2) g/dL Albumin 3.0 L (3.5-5.0) g/dL 05/20/18 05/20/18 Range/Units 05:51 11:15 RBC (4.30-5.90) m/uL Hgb (13.0-17.5) gm/dL Hct (39.0-53.0) % Lymphocytes # (1.0-4.8) k/uL PT (9.0-12.0) sec INR (<1.2) BUN (9-20) mg/dL Glucose (74-99) mg/dL POC Glucose (mg/dL) 130 H 125 H (75-99) mg/dL Total Protein (6.3-8.2) g/dL Albumin (3.5-5.0) g/dL Assessment and Plan Assessment: Assessment Postop day #6, status post aortic valve replacement, intraoperative transesophageal echocardiogram, excision of left atrial appendage. History of severe aortic stenosis and moderate mitral valve regurgitation Status post routine postoperative ventilator management History of chronic atrial fibrillation History of chronic nicotine dependence History of anemia secondary to surgery. Left ventricular systolic dysfunction, with an ejection fraction of 40-45% Moderate pulmonary hypertension History of CAD History of hypertension History of hyperlipidemia History of BPH Plan: Recommend by Dr. Dominguez. Chest x-ray and labs were reviewed. He is currently stable from the pulmonary standpoint. Continue his current treatment plan. He is working well with the incentive spirometer. We will increase his activity as tolerated. The plan is for discharge to inpatient rehabilitation obtained. We'll continue to follow. I, the cosigning physician, performed a history & physical examination of the patient. Lungs sounds with crackles in the bilateral posterior bases. Maintaining good O2 saturations in the 90s on room air. I discussed the assessment and plan of care with my nurse practitioner, Brenda Matthew. I attest to the above note as dictated by her.
[2018-05-20 16:31] LABS: Glucose,Whole Blood 126 mg/dL (75-99)
[2018-05-20] MEDS ORDERED: WARFARIN 5 MG TAB PO ONE (18:00)
[2018-05-20] MEDS: FERROUS SULFATE 325 MG TAB PO SCH (18:06)
[2018-05-20 20:34] LABS: Glucose,Whole Blood 162 mg/dL (75-99)
[2018-05-20] MEDS: FINASTERIDE 5 MG TAB PO SCH (20:35)
[2018-05-20] MEDS: SENNOSIDES-DOCUSATE SODIUM 1 EACH TAB PO SCH (20:35)
[2018-05-20] MEDS: HYDROcodone/APAP 5-325MG 1 EACH TAB PO PRN (20:38)
[2018-05-21 02:00] LABS: Glucose,Whole Blood 126 mg/dL (75-99)
[2018-05-21 06:13] LABS: Glucose,Whole Blood 126 mg/dL (75-99)
[2018-05-21 06:19] LABS: HCT 23.8 % (39.0-53.0); HGB 7.7 gm/dL (13.0-17.5); Hypochromasia Slight; MCH 28.7 pg (25.0-35.0); MCHC 32.6 g/dL (31.0-37.0); Mean Platelet Volume 8.3; Platelet Count 177 k/uL (150-450); RDW 14.4 % (11.5-15.5); WBC 5.2 k/uL (3.8-10.6)
[2018-05-21] MEDS: INSULIN ASPART 100 UNIT/ML 1 ML 10 ML VIAL SQ SCH ×2 (06:19→12:21)
[2018-05-21 06:24] LABS: INR 1.9 (<1.2); Prothrombin Time 17.6 sec (9.0-12.0)
[2018-05-21] MEDS: FERROUS SULFATE 325 MG TAB PO SCH (06:25)
[2018-05-21] MEDS: PANTOPRAZOLE 40 MG TABLET PO SCH (06:25)
[2018-05-21 06:28] LABS: Anion Gap 7 mmol/L; Blood Urea Nitrogen 27 mg/dL (9-20); Calcium 8.2 mg/dL (8.4-10.2); Carbon Dioxide 26 mmol/L (22-30); Chloride 103 mmol/L (98-107); Glucose 109 mg/dL (74-99); Potassium 3.7 mmol/L (3.5-5.1); Sodium 136 mmol/L (137-145)
[2018-05-21] MEDS: IPRATROPIUM-ALBUTEROL 3 ML NEB INHALATION SCH ×2 (08:17→11:41)
[2018-05-21] MEDS: ASPIRIN 81 MG PO SCH (08:39)
[2018-05-21] MEDS: ATORVASTATIN 40 MG TAB PO SCH (08:39)
[2018-05-21] MEDS: METOPROLOL TARTRATE 25 MG TAB PO SCH (08:39)
[2018-05-21] MEDS: TAMSULOSIN 0.4 MG CAP.ER.24H PO SCH (08:39)
[2018-05-21] MEDS: HEPARIN SODIUM,PORCINE 5,000 UNIT/ML 1 ML VIAL SQ SCH (08:39)
--- NOTE | 2018-05-21 09:10 | XR ---
EXAMINATION TYPE: XR chest 2V DATE OF EXAM: 05/21/2018 COMPARISON: 05/20/2018 TECHNIQUE: PA and lateral views submitted. HISTORY: Post open heart FINDINGS: The heart is enlarged and is bilateral consolidation and pleural effusion. Postsurgical changes are n oted. Arthropathy of the shoulders and biapical pleural thickening. Question mild central venous ayla estion. IMPRESSION: 1. Stable bilateral consolidation and small effusion. 2. There is mild interval improvement in the interstitium suggestive of reducing vascular congestion.
[2018-05-21 09:43] VITALS: TEMP 97.4
[2018-05-21] MEDS ORDERED: FUROSEMIDE 10 MG/ML 2 ML VIAL IV STA (11:50)
[2018-05-21] MEDS ORDERED: LISINOPRIL 2.5 MG TAB PO SCH (12:00)
[2018-05-21 12:17] LABS: Glucose,Whole Blood 127 mg/dL (75-99)
--- NOTE | 2018-05-21 12:33 | P.DS ---
Providers Date of admission: 05/14/18 05:43 Expected date of discharge: 05/21/18 Attending physician: Oma Lockhart Consults: 05/14/18 13:45 Consult Physician Routine Consulting Provider: Stewart Williamson Consult Reason/Comments: Digital Media Director Consult: post cardiac surgery Do you want consulting provider notified?: Yes Consult Physician Routine Consulting Provider: Karon Bello Consult Reason/Comments: medical management Do you want consulting provider notified?: Yes Consult Physician Routine Consulting Provider: Darío Banks Consult Reason/Comments: University Tutor Consult: post cardiac surgery Do you want consulting provider notified?: Yes 05/16/18 19:06 Consult Physician Routine Consulting Provider: Tu Bernal Consult Reason/Comments: inpatient rehab Do you want consulting provider notified?: Yes, Notify in am Primary care physician: Victor Manuel Alarcon - Discharge Diagnosis(es) (1) Severe aortic valve stenosis Current Visit: Yes Status: Chronic Priority: High (2) Moderate mitral valve regurgitation Current Visit: Yes Status: Chronic (3) Chronic atrial fibrillation Current Visit: Yes Status: Chronic Priority: Medium (4) Hypertension Current Visit: Yes Status: Chronic Priority: Medium (5) Hyperlipidemia Current Visit: Yes Status: Chronic (6) Coronary artery disease Current Visit: Yes Status: Chronic Priority: Medium (7) Peripheral vascular disease Current Visit: Yes Status: Chronic (8) History of DVT (deep vein thrombosis) Current Visit: No Status: Resolved (9) BPH (benign prostatic hyperplasia) Current Visit: Yes Status: Chronic (10) COPD (chronic obstructive pulmonary disease) Current Visit: Yes Status: Chronic Priority: Low (11) Tobacco dependence in remission Current Visit: No Status: Resolved (12) Chronic left ventricular systolic dysfunction Current Visit: Yes Status: Chronic Hospital Course: FINAL DIAGNOSIS: 1. Severe aortic valve stenosis 2. Moderate mitral valve regurgitation 3. Chronic atrial fibrillation on Coumadin for anticoagulation 4. Chronic, stable proximal LAD lesion of 50% 5. Hypertension 6. Hyperlipidemia 7. Peripheral vascular disease 8. Deep vein thrombosis in 2013 9. Left ventricular systolic dysfunction with ejection fraction of 40-45% 10. Previous tobacco dependence 11. Mild COPD with preoperative FEV1 66% predicted 12. BPH PRINCIPAL PROCEDURE: 1. Aortic valve replacement using a 25 mm bovine Inspiris bioprosthesis 2. Exclusion of the left atrial appendage using a 45 mm AtriClip 3. Intraoperative transesophageal echocardiogram and epi-aortic scanning HISTORY OF PRESENT ILLNESS: This is an 83-year-old gentleman who follows with Dr Victor Manuel hua on an outpatient basis. He has been known to have aortic stenosis for quite some time and has had serial echocardiograms. Initially he was completely in asymptomatic, however more recently he had noticed a decreasing functional status. He underwent workup that included a IOANA and cardiac catheterization. Cardiac catheterization demonstrated a 40-50% proximal LAD lesion which seemed to be eccentric which was unchanged from prior heart catheterizations in 2012 and 2013, FFR was completed demonstrating the lesion was nonischemic. The rest of his vessels were nonsignificant. Most recent 2-D echo completed was consistent with severe aortic valve stenosis with a mean gradient of 40 mmHg. The IOANA, however failed to obtain the same numbers , although the valve appeared to be trileaflet, calcified and severely stenotic. The patient was referred to Dr. Lockhart from cardiothoracic surgery by Dr. Banks. He was recommended to undergo aortic valve replacement. All risks and benefits were explained in detail to the patient and his family, all questions were answered, and consent was obtained to proceed with surgery. The patient did obtain dental clearance prior to surgery. HOSPITAL COURSE: The patient was brought to the hospital on 05/14/2018, taken to the preoperative area, prepared in the usual fashion, and subsequently taken to the operating room where Dr. Lockhart performed Aortic valve replacement using a 25 mm bovine Inspiris bioprosthesis, exclusion of the left atrial appendage using a 45 mm AtriClip, intraoperative transesophageal echocardiogram and epi- aortic scanning. Upon completion of surgery the patient was transferred to the cardiovascular intensive care unit where he was recovered, monitored hemodynamically, and where he progressed to cardiac rehabilitation phase 1. He was extubated, all lines, tubes, and drips were discontinued when appropriate, and he was transferred to [address] [place] [address] for further monitoring and rehabilitation. His oxygen was titrated down, he continued to work with physical and occupational therapy, he was tolerating oral diet, his pain was controlled, and he was ready to be discharged to [facility] inpatient rehab on postoperative day #7. He received written and verbal instruction regarding his medications, activity restrictions, signs and symptoms requiring physician notification, and follow-up appointments. COMPLICATIONS: The patient experienced no postoperative complications. Patient Condition at Discharge: Stable Plan - Discharge Summary Discharge Rx Participant: Yes New Discharge Prescriptions: New Acetaminophen Tab [Tylenol] 650 mg PO Q4HR PRN tab PRN Reason: Fever And/ Or Pain Acetaminophen Tab [Tylenol] 325 mg PO Q4HR PRN tab PRN Reason: Fever And/ Or Pain Aspirin 81 mg PO DAILY chew Atorvastatin [Lipitor] 40 mg PO DAILY tab Ferrous Sulfate [Iron (65 MG Elemental)] 325 mg PO BID-W/MEALS tab Furosemide [Lasix] 20 mg PO DAILY #14 tablet Ipratropium-Albuterol Nebulize [Duoneb 0.5 mg-3 mg/3 ml Soln] 3 ml INHALATION RT-QID ampul.neb Ipratropium-Albuterol Nebulize [Duoneb 0.5 mg-3 mg/3 ml Soln] 3 ml INHALATION RT-Q2H PRN ampul.neb PRN Reason: Shortness Of Breath Or Wheezing Magnesium Hydroxide [Milk of Magnesia Concentrate] 2,400 mg PO BID PRN ml PRN Reason: Constipation Metoprolol Tartrate [Lopressor] 25 mg PO BID tab Pantoprazole [Protonix] 40 mg PO AC-BRKFST tablet.dr Oreilly-Docusate Sodium [Senokot-S] 2 each PO HS PRN tab PRN Reason: Constipation Tamsulosin [Flomax] 0.4 mg PO BID cap.er.24h Warfarin [Coumadin] 3 mg PO DAILY@1800 #1 tab Lisinopril [Zestril] 2.5 mg PO DAILY #30 tab Continue Finasteride [Proscar] 5 mg PO HS Discontinued Warfarin [Coumadin] 3.75 mg PO MOTH Warfarin [Coumadin] 2.5 mg PO SUTUWEFRSA Simvastatin [Zocor] 10 mg PO HS Hydrochlorothiazide [Hydrodiuril] 12.5 mg PO DAILY Enalapril [Vasotec] 5 mg PO DAILY Methylcellulose (with Sugar) [Citrucel] 1 cap PO BID Tamsulosin [Flomax] 0.4 mg PO DAILY #14 cap Metoprolol Succinate [Toprol XL] 25 mg PO BID Aspirin 325 mg PO DAILY Discharge Medication List Finasteride [Proscar] 5 mg PO HS 04/08/18 [History] Acetaminophen Tab [Tylenol] 325 mg PO Q4HR PRN tab 05/21/18 [Rx] Acetaminophen Tab [Tylenol] 650 mg PO Q4HR PRN tab 05/21/18 [Rx] Aspirin 81 mg PO DAILY chew 05/21/18 [Rx] Atorvastatin [Lipitor] 40 mg PO DAILY tab 05/21/18 [Rx] Ferrous Sulfate [Iron (65 MG Elemental)] 325 mg PO BID-W/MEALS tab 05/21/18 [Rx ] Furosemide [Lasix] 20 mg PO DAILY #14 tablet 05/21/18 [Rx] Ipratropium-Albuterol Nebulize [Duoneb 0.5 mg-3 mg/3 ml Soln] 3 ml INHALATION RT -Q2H PRN ampul.neb 05/21/18 [Rx] Ipratropium-Albuterol Nebulize [Duoneb 0.5 mg-3 mg/3 ml Soln] 3 ml INHALATION RT -QID ampul.neb 05/21/18 [Rx] Lisinopril [Zestril] 2.5 mg PO DAILY #30 tab 05/21/18 [Rx] Magnesium Hydroxide [Milk of Magnesia Concentrate] 2,400 mg PO BID PRN ml 05/21 [Rx] Metoprolol Tartrate [Lopressor] 25 mg PO BID tab 05/21/18 [Rx] Pantoprazole [Protonix] 40 mg PO AC-BRKFST tablet. 05/21/18 [Rx] Sennosides-Docusate Sodium [Senokot-S] 2 each PO HS PRN tab 05/21/18 [Rx] Tamsulosin [Flomax] 0.4 mg PO BID cap.er.24h 05/21/18 [Rx] Warfarin [Coumadin] 3 mg PO DAILY@1800 #1 tab 05/21/18 [Rx] Follow up Appointment(s)/Referral(s): Darío Banks MD [STAFF PHYSICIAN] - 06/28/18 3:45 pm Oma Lockhart MD [STAFF PHYSICIAN] - 06/14/18 10:45 am Stewart Williamson DO [Doctor of Osteopathic Medicine] - 05/31/18 9:45 am Victor Manuel Alarcon MD [Primary Care Provider] - 1 Week (Please make appointment with Dr. Alarcon upon discharge from [facility]) Ambulatory/Diagnostic Orders: Prothrombin Time INR [LAB.AMB] Location: None Selected Patient Instructions/Handouts: Aortic Valve Replacement (DC), Wound Healing and Your Diet (DC), Chronic Lung Disease and Infection Prevention (DC) Activity/Diet/Wound Care/Special Instructions: Consults at [facility] inpatient rehab: Dr. Banks for cardiology, coumadin managment DISCHARGE INSTRUCTIONS: 1. No driving for 4 weeks, or until physician gives their ok. 2. The patient should sleep in their own bed, no medical bed needed. 3. Stairs are not an issue. If the bedroom is upstairs, it is advised that the patient go up at night and down in the morning for the first week. Go slowly, using handrail and take 1 step at a time. 4. SABI hose are to be worn for 30 days or until physician discontinues. 5. Heart hugger is to be worn 100% of the time until physician discontinues.( except when showering) 6. No lifting, pushing, or pulling more than 10 pounds for 12 weeks. The physician will advise of any restriction changes. 7. The patient is expected to continue the prescribed walking program. 8. Continue pain control per as needed orders. 9. Continue with incentive spirometry and splinting/heart hugger until otherwise directed by the physician. 10. Must shower daily using liquid antibacterial soap and a separate white washcloth for each individual incision. 11. Routine sternal incision care. No powders, lotions, ointments on incisions. 12. Please call surgeon/STREETCAR REPAIRER for temp greater than 101 F or purulent drainage from incisions. 13. All prescriptions given by surgeon for 30 days. Refills need to be filled through network manager/primary care physician. 14. A Red armband has been placed on the patient. It should be worn for 30 days post surgery and will be removed by the cardiac surgeons. If an ER visit is necessary, please make sure the number on the Red armband is called. REHAB/HOME HEALTH SERVICES TO PROVIDE: RN SKILLED HOME CARE SERVICES FOR POST-OP SURGICAL PATIENTS WITH THE FOLLOWING: Coronary Artery Bypass Surgery (CABG), Mitral Valve Replacement/ Repair ( MVR), Aortic Valve Replacement/Repair (AVR) RN TO CONTINUE EDUCATION FROM ``ROAD TO A HEALTH HEART PATIENT EDUCATION MANUAL (GIVEN TO PATIENT IN THE HOSPITAL) MEDICATION RECONCILIATION WITH EDUCATION NEEDED ON FIRST HOME VISIT EMPHASIZE IMPORTANCE OF WEARING BREAST SUPPORT/HEART HUGGER ENCOURAGE USE OF INCENTIVE SPIROMETER 10 X EVERY HOUR WHILE AWAKE ENCOURAGE UTILIZATION OF LOWER EXTREMITY COMPRESSION STOCKINGS/SABI HOSE and ELEVATE LEGS ABOVE LEVEL OF HEART WHILE AT REST. ENCOURAGE AMBULATION 3-5x/day INCREASING TOLERATES, WHILE AVOID EXTREMES IN TEMPERATURE FREQUENCY: RN TO OPEN THE PATIENT WITHIN 24 HOURS OF DISCHARGE FROM THE HOSPITAL WITH TELEHEALTH INSTALLED AT [facility], RN TO VISIT 2-3 X A WEEK FOR 4 WEEKS ESTABLISHED BY PATIENT NEEDS. LABORATORY: CBC, CMP TO BE DRAWN DAY 3 THEN PER PROTOCOL, (RAN STAT) FAX RESULTS TO [phone]. For patients on Coumadin, PT/INR to be drawn DAILY, ran as STAT , and results to cardiology consult for Coumadin dosing. PLEASE ADDITIONALLY COMMUNICATE ANY ABNORMALS AND NEW FINDINGS TO THE SURGEONS OFFICE. Discharge Disposition: DC/TRNS INTERMEDIATE CARE FAC
--- NOTE | 2018-05-21 12:39 | P.PN ---
Subjective Progress Note Date: 05/21/18 Principal diagnosis: Status post aortic valve replacement for aortic stenosis Progress note dated 05/15/2018 This is an 83-year-old gentleman who is postop day #1, status post aortic valve placement and excision of left atrial appendage for severe aortic stenosis. The patient was successfully extubated within 4 hours. The patient also has a history of mitral valve regurgitation chronic atrial fibrillation nicotine dependence anemia secondary to blood loss from the surgery, systolic dysfunction with an ejection fraction of 40-45% stable CAD hypertension hyperlipidemia BPH. Currently, the patient is not on any supplemental oxygen. He is Receiving IV cleviprex at 2 mg per hour. He is also on an insulin drip at 2.5 units per hour and lactated Ringer's IV at 50 mL an hour. The patient seemed be doing reasonably well. Certainly has pain at the surgical site. He denies any significant cough or wheezing. He is not practically short of breath. Denies any chest pain or chest discomfort other than surgical site pain. The patient's working on his incentive spirometer. As I mentioned above , he was able to be weaned and extubated within 4 hours. Progress note dated 05/16/2018 83-year-old male, postop day #2, status post aortic valve replacement and excision of left atrial appendage for severe aortic stenosis. The patient was successfully extubated within 4 hour time limit. The patient has a history of mitral valve regurgitation, chronic atrial fibrillation, nicotine dependence, anemia, systolic dysfunction with an ejection fraction of 40-45%, CAD, hypertension, hyperlipidemia and BPH. Currently, the patient is not receiving any supplemental oxygen. The IV is lactated Ringer's at 20 mL an hour. The patient is in atrial fibrillation with controlled ventricular response rate. In addition, the patient is able to get between 750 to 1000 mL on incentive spirometer. Currently, the patient does not have any complaints. Denies any chest pain or chest discomfort. He denies any shortness of breath cough wheezing phlegm production or hemoptysis. There is neither fever or chills or nausea vomiting or diarrhea. Patient is seen again today 05/17/2018 in follow-up on the selective care unit. He is currently resting quite comfortably in bed. He is awake and alert in no acute distress. He denies any worsening shortness of breath, cough or congestion. Chest x-ray reveals stable bilateral infiltrates and small effusions. Mild central venous congestion. He was given a dose of IV Lasix this morning. He is maintaining good O2 saturations in the mid 90s on room air. He's been afebrile. White count 5.7. Hemoglobin 7.6. Creatinine 0.90. He remains in atrial fibrillation. Anticoagulated with warfarin. Patient is seen again today 05/18/2018 in follow-up on the selective care unit. He is awake and alert in no acute distress. He's been up ambulating with assistance. He currently denies any worsening shortness of breath, cough or congestion. Today's chest x-ray shows small basilar effusions. He is maintaining good O2 saturations in the 90s on room air. He's working well with the incentive spirometer. He's been afebrile. White count 5.6. Hemoglobin 7.8. Creatinine 0.94. Progress note dated 05/19/2018 83-year-old male postop day #5 status post aortic valve replacement and excision of left atrial appendage for severe aortic stenosis. The patient's doing relatively well. Has a history of mitral valve regurgitation chronic atrial fibrillation nicotine dependence anemia systolic dysfunction with an ejection fraction of about 40% CAD hypertension hyperlipidemia and BPH. The patient has been weaned off of supplemental oxygen. The patient will likely be discharged to inpatient rehabilitation. He denies any chest pain or chest discomfort. There is no shortness of breath. No phlegm production. No nausea vomiting or diarrhea. No GI or issues. Seen again today 05/20/2018 in follow-up on the selective care unit. He is currently awake and alert in no acute distress. He sitting up in a chair at the bedside. His appetite is good. He is working well with the incentive spirometer. He denies any worsening shortness of breath, cough or congestion. Chest x-ray shows small bilateral pleural effusions with associated atelectasis. He is maintaining good O2 saturations in the 90s on room air. He is afebrile. Hemodynamically stable. White count 4.5. Hemoglobin 7.8. INR 1.6. Creatinine 0.83. The patient is seen again today 05/21/2018 in follow-up on the selective care unit. He is awake and alert in no acute distress. He denies any worsening shortness of breath, cough or congestion. He's been up ambulating with assistance. Chest x-ray reveals stable bilateral small pleural effusions. Improvement in the pulmonary vascular congestion as well. White count 5.2. Hemoglobin 7.7. INR 1.9. Creatinine 0.78. Objective - Vital Signs Vital signs: Vital Signs Temp 97.4 F L 05/21/18 08:40 Pulse 78 05/21/18 11:53 Resp 18 05/21/18 08:40 BP 104/75 05/21/18 08:40 Pulse Ox 96 05/21/18 08:40 Intake & Output 05/20/18 05/21/18 05/21/18 18:59 06:59 18:59 Intake Total 390 20 200 Output Total 200 Balance 390 -180 200 Weight 96.5 kg Intake: IV 20 0.9 20 Oral 390 200 Output: Urine 200 Other: # Bowel Movements 0 ABP, PAP, CO, CI - Last Documented Arterial Blood Pressure 141/45 Pulmonary Artery Pressure 18/10 Cardiac Output 4.9 Cardiac Index 2.3 - Exam No acute distress, oriented 3. Not requiring supplemental oxygen. HEENT examination is grossly unremarkable. Mucous membranes are moist. No oral lesions. Neck supple. Full range of motion. No adenopathy thyromegaly or neck vein distention. Cardiovascular examination reveals irregular rhythm rate. S1-S2 normal. No S3 or S4. No discernible murmur noted. Heart sounds are distant. Lungs reveal improving bilateral breath sounds. Crackles in the bilateral posterior bases. Abdomen soft bowel sounds are heard. No masses or tenderness. Extremities are intact. No cyanosis clubbing or edema. Skin is without rash or lesion. Neurologic examination is brief but nonfocal. - Labs CBC & Chem 7: 05/21/18 05:58 05/21/18 05:58 Labs: Abnormal Lab Results - Last 24 Hours (Table) 05/20/18 05/20/18 05/21/18 Range/Units 16:20 20:32 01:59 RBC (4.30-5.90) m/uL Hgb (13.0-17.5) gm/dL Hct (39.0-53.0) % PT (9.0-12.0) sec INR (<1.2) Sodium (137-145) mmol/L BUN (9-20) mg/dL Glucose (74-99) mg/dL POC Glucose (mg/dL) 126 H 162 H 126 H (75-99) mg/dL Calcium (8.4-10.2) mg/dL 05/21/18 05/21/18 05/21/18 Range/Units 05:58 05:58 05:58 RBC 2.70 L (4.30-5.90) m/uL Hgb 7.7 L (13.0-17.5) gm/dL Hct 23.8 L (39.0-53.0) % PT 17.6 H (9.0-12.0) sec INR 1.9 H (<1.2) Sodium 136 L (137-145) mmol/L BUN 27 H (9-20) mg/dL Glucose 109 H (74-99) mg/dL POC Glucose (mg/dL) (75-99) mg/dL Calcium 8.2 L (8.4-10.2) mg/dL 05/21/18 05/21/18 Range/Units 06:11 11:42 RBC (4.30-5.90) m/uL Hgb (13.0-17.5) gm/dL Hct (39.0-53.0) % PT (9.0-12.0) sec INR (<1.2) Sodium (137-145) mmol/L BUN (9-20) mg/dL Glucose (74-99) mg/dL POC Glucose (mg/dL) 126 H 127 H (75-99) mg/dL Calcium (8.4-10.2) mg/dL Assessment and Plan Assessment: Assessment Postop day #7, status post aortic valve replacement, intraoperative transesophageal echocardiogram, excision of left atrial appendage. History of severe aortic stenosis and moderate mitral valve regurgitation Status post routine postoperative ventilator management History of chronic atrial fibrillation History of chronic nicotine dependence History of anemia secondary to surgery. Left ventricular systolic dysfunction, with an ejection fraction of 40-45% Moderate pulmonary hypertension History of CAD History of hypertension History of hyperlipidemia History of BPH Plan: Recommend by Dr. Dominguez. Chest x-ray and labs were reviewed. He is stable for discharge from the pulmonary standpoint. Continue his current treatment plan. Continue to work with the incentive spirometer. He'll follow-up in our office in 1-2 weeks' time. We'll repeat a chest x-ray then. I, the cosigning physician, performed a history & physical examination of the patient. Lungs sounds with crackles in the bilateral posterior bases. Maintaining good O2 saturations in the 90s on room air. I discussed the assessment and plan of care with my nurse practitioner, Brenda Matthew. I attest to the above note as dictated by her.
--- NOTE | 2018-05-21 12:48 | P.PN ---
Subjective Progress Note Date: 05/21/18 This is an 83-year-old gentleman who is postop status post aortic valve replacement with bovine bioprosthesis and excision of a left atrial appendage for severe aortic stenosis. Patient was seen and examined this morning, hemodynamically is doing well. Denies any difficulty in breathing, arrangements are being made for the patient transferred to rehab on Sunday. 05/20/2018 Patient seen and examined this morning, feeling well overall. Repeat chest x- ray did show some congestive heart failure and the patient was given a one-time dose of IV Lasix. Arrangements are being made for the patient to be transferred to inpatient rehab today. Hemodynamically he is stable. 05/21/2018 Patient seen and examined this morning, apparently did not go to rehab yesterday because of some insurance issues. He is discharged today. Overall doing well. Hemodynamically stable. Objective - Vital Signs Vital signs: Vital Signs Temp 97.4 F L 05/21/18 08:40 Pulse 78 05/21/18 11:53 Resp 18 05/21/18 08:40 BP 104/75 05/21/18 08:40 Pulse Ox 96 05/21/18 08:40 Intake & Output 05/20/18 05/21/18 05/21/18 18:59 06:59 18:59 Intake Total 390 20 200 Output Total 200 Balance 390 -180 200 Weight 96.5 kg Intake: IV 20 0.9 20 Oral 390 200 Output: Urine 200 Other: # Bowel Movements 0 ABP, PAP, CO, CI - Last Documented Arterial Blood Pressure 141/45 Pulmonary Artery Pressure 18/10 Cardiac Output 4.9 Cardiac Index 2.3 - Exam No acute distress, oriented 3. Not requiring supplemental oxygen. HEENT examination is grossly unremarkable. Mucous membranes are moist. No oral lesions. Neck supple. Full range of motion. No adenopathy thyromegaly or neck vein distention. Cardiovascular examination reveals irregular rhythm rate. S1-S2 normal. No S3 or S4. No discernible murmur noted. Heart sounds are distant. Lungs reveal improving bilateral breath sounds. Crackles in the bilateral posterior bases. Abdomen soft bowel sounds are heard. No masses or tenderness. Extremities are intact. No cyanosis clubbing or edema. Skin is without rash or lesion. Neurologic examination is brief but nonfocal. - Labs CBC & Chem 7: 05/21/18 05:58 05/21/18 05:58 Labs: Abnormal Lab Results - Last 24 Hours (Table) 05/20/18 05/20/18 05/21/18 Range/Units 16:20 20:32 01:59 RBC (4.30-5.90) m/uL Hgb (13.0-17.5) gm/dL Hct (39.0-53.0) % PT (9.0-12.0) sec INR (<1.2) Sodium (137-145) mmol/L BUN (9-20) mg/dL Glucose (74-99) mg/dL POC Glucose (mg/dL) 126 H 162 H 126 H (75-99) mg/dL Calcium (8.4-10.2) mg/dL 05/21/18 05/21/18 05/21/18 Range/Units 05:58 05:58 05:58 RBC 2.70 L (4.30-5.90) m/uL Hgb 7.7 L (13.0-17.5) gm/dL Hct 23.8 L (39.0-53.0) % PT 17.6 H (9.0-12.0) sec INR 1.9 H (<1.2) Sodium 136 L (137-145) mmol/L BUN 27 H (9-20) mg/dL Glucose 109 H (74-99) mg/dL POC Glucose (mg/dL) (75-99) mg/dL Calcium 8.2 L (8.4-10.2) mg/dL 05/21/18 05/21/18 Range/Units 06:11 11:42 RBC (4.30-5.90) m/uL Hgb (13.0-17.5) gm/dL Hct (39.0-53.0) % PT (9.0-12.0) sec INR (<1.2) Sodium (137-145) mmol/L BUN (9-20) mg/dL Glucose (74-99) mg/dL POC Glucose (mg/dL) 126 H 127 H (75-99) mg/dL Calcium (8.4-10.2) mg/dL Assessment and Plan Plan: Assessment and plan #1 status post aortic valve replacement with bovine bioprosthesis for severe aortic stenosis #2 chronic persistent atrial fibrillation #3 nicotine dependence #4 hypertension #5 hyperlipidemia Plan We will continue the patient on his current medications. Patient may benefit from a daily dose of by mouth Lasix. Arrangements are being made for the patient to be transferred to rehab today DNP note has been reviewed, I agree with a documented findings and plan of care. Patient was seen and examined.
[2018-05-21 13:09] VITALS: BP 104/64; PULSE 88; RESP 16
== END 2018-05-21 15:40 | DRG 220 ==
LOC: 2ORMAIN 05:43 → 6ICU 13:56 → 6SEL 05-16 14:21
PROVIDERS: ADMIT Surgery; ATTEND Surgery
PROC: 302 Administration, Circulatory, Transfusion (ICD-10-PCS; 2018-05-14)
PROC: 30240R1 Transfusion of Nonautologous Platelets into Central Vein, Open Approach (ICD-10-PCS; 2018-05-14)
PROC: 302 Administration, Circulatory, Transfusion (ICD-10-PCS; 2018-05-14)
PROC: 02RF08Z Replacement of Aortic Valve with Zooplastic Tissue, Open Approach (ICD-10-PCS; principal; 2018-05-14 08:00)
PROC: 02L70CK Occlusion of Left Atrial Appendage with Extraluminal Device, Open Approach (ICD-10-PCS; 2018-05-14 08:00)
PROC: 5A1221Z Performance of Cardiac Output, Continuous (ICD-10-PCS; 2018-05-14 08:00)
DX: I35.0 Nonrheumatic aortic (valve) stenosis (principal); D62 Acute posthemorrhagic anemia; I50.22 Chronic systolic (congestive) heart failure; J98.11 Atelectasis; I34.0 Nonrheumatic mitral (valve) insufficiency; D69.6 Thrombocytopenia, unspecified; E78.5 Hyperlipidemia, unspecified; F17.201 Nicotine dependence, unspecified, in remission; I11.0 Hypertensive heart disease with heart failure; I25.10 Atherosclerotic heart disease of native coronary artery without angina pectoris; I27.20 Pulmonary hypertension, unspecified; I48.2 Chronic atrial fibrillation; I73.9 Peripheral vascular disease, unspecified; J44.9 Chronic obstructive pulmonary disease, unspecified; M19.90 Unspecified osteoarthritis, unspecified site; N40.0 Benign prostatic hyperplasia without lower urinary tract symptoms; Z79.01 Long term (current) use of anticoagulants; Z79.82 Long term (current) use of aspirin; Z79.899 Other long term (current) drug therapy; Z86.718 Personal history of other venous thrombosis and embolism; Z96.651 Presence of right artificial knee joint; Z96.643 Presence of artificial hip joint, bilateral; Z98.42 Cataract extraction status, left eye; Z98.41 Cataract extraction status, right eye; Z96.1 Presence of intraocular lens
CPT/HCPCS: 71045; 71046; 80048; 80053; 82330; 82805; 83735; 85025; 85027; 85384; 85520; 85610; 85730; 86850; 86891; 86900; 86901; 86920; 88305; 88311; 94002; 94640; 94760

== ENCOUNTER 2018-06-16 20:43 | Emergency (ER) | payer MEDICARE ==
[2018-06-16 21:22] LABS: Basophils % (A) 0 %; Eosinophils # (A) 0.1 k/uL (0-0.7); Eosinophils % (A) 2 %; HCT 36.3 % (39.0-53.0); Hypochromasia Marked; Lymphocytes # (A) 1.3 k/uL (1.0-4.8); Lymphocytes % (A) 17 %; MCH 26.6 pg (25.0-35.0); MCHC 30.4 g/dL (31.0-37.0); MCV 87.4 fL (80.0-100.0); Mean Platelet Volume 7.9; Monocytes # (A) 0.5 k/uL (0-1.0); Monocytes % (A) 7 %; Neutrophils # (A) 5.6 k/uL (1.3-7.7); Neutrophils % (A) 73 %; Platelet Count 221 k/uL (150-450); Poikilocytosis Slight; RBC 4.16 m/uL (4.30-5.90); RDW 14.9 % (11.5-15.5); WBC 7.7 k/uL (3.8-10.6)
[2018-06-16 21:32] LABS: Albumin 3.6 g/dL (3.5-5.0); Bilirubin, Delta 0.4 mg/dL (0.0-0.2); Bilirubin,Unconjugated 0.5 mg/dL (0.0-1.1); Calcium 8.9 mg/dL (8.4-10.2); Total Bilirubin 0.9 mg/dL (0.2-1.3); Total Protein 6.3 g/dL (6.3-8.2)
[2018-06-16 21:42] LABS: Prothrombin Time 36.1 sec (9.0-12.0)
--- NOTE | 2018-06-16 21:54 | CT ---
EXAMINATION TYPE: CT brain ruth alicea DATE OF EXAM: 06/16/2018 COMPARISON: None HISTORY: Fall on coumadin with repetitive speech. CT DLP: 1686.93 mGycm Automated exposure control for dose reduction was used. TECHNIQUE: CT scan of the head and cervical spine are performed without contrast. FINDINGS: There is cerebral cortical atrophy. There is no mass effect nor midline shift. There is n o sign of intracranial hemorrhage. There is slight widening of the subdural space over the right fron shandra convexity. The calvarium is intact. Cervical vertebra have normal alignment. There is slight narrowing of the C4-5 disc space. There is m inor spurring of the endplates. There is multilevel hypertrophic facet arthropathy. The skull base is intact. IMPRESSION: Spondylotic changes in the cervical spine. No fracture. Cerebral atrophy and chronic mild white matter changes. Widened right frontal subdural space consiste nt with subdural mild hygroma. This measures approximate 5 mm.
--- NOTE | 2018-06-16 22:07 | ED ---
General Adult HPI - General Chief complaint: Fall Stated complaint: FALL,CONFUSION Time Seen by Provider: 06/16/18 20:56 Source: EMS Mode of arrival: EMS Limitations: no limitations - History of Present Illness Initial comments: 83 yoM presenting after a syncopal event at home. Patient's states he yelled out to her while trying to put on his shoes. He then fell backwards, striking the back of his head on the floor, and was unresponsive. He awoke about 1 minute later. The patient had a cardiac bypass 3 weeks prior. He was supratherapeutic on his coumadin with an INR of >6 on Sunday. He stopped his coumadin on Sunday and restarted it today. Prior to this event he was at his baseline. The patient denies any chest pain or shortness of breath. Family states normally he is A/Ox3. - Related Data Home Medications Medication Instructions Recorded Confirmed Finasteride [Proscar] 5 mg PO HS 04/08/18 05/14/18 Previous Rx's Medication Instructions Recorded Acetaminophen Tab [Tylenol] 325 mg PO Q4HR PRN tab 05/21/18 Acetaminophen Tab [Tylenol] 650 mg PO Q4HR PRN tab 05/21/18 Aspirin 81 mg PO DAILY chew 05/21/18 Atorvastatin [Lipitor] 40 mg PO DAILY tab 05/21/18 Ferrous Sulfate [Iron (65 MG 325 mg PO BID-W/MEALS tab 05/21/18 Elemental)] Furosemide [Lasix] 20 mg PO DAILY #14 tablet 05/21/18 Ipratropium-Albuterol Nebulize 3 ml INHALATION RT-Q2H PRN 05/21/18 [Duoneb 0.5 mg-3 mg/3 ml Soln] ampul.neb Ipratropium-Albuterol Nebulize 3 ml INHALATION RT-QID ampul.neb 05/21/18 [Duoneb 0.5 mg-3 mg/3 ml Soln] Lisinopril [Zestril] 2.5 mg PO DAILY #30 tab 05/21/18 Magnesium Hydroxide [Milk of 2,400 mg PO BID PRN ml 05/21/18 Magnesia Concentrate] Metoprolol Tartrate [Lopressor] 25 mg PO BID tab 05/21/18 Pantoprazole [Protonix] 40 mg PO AC-BRKFST tablet. 05/21/18 Sennosides-Docusate Sodium 2 each PO HS PRN tab 05/21/18 [Senokot-S] Tamsulosin [Flomax] 0.4 mg PO BID cap.er.24h 05/21/18 Warfarin [Coumadin] 3 mg PO DAILY@1800 #1 tab 05/21/18 Allergies Allergy/AdvReac Type Severity Reaction Status Date / Time No Known Allergies Allergy Verified 06/16/18 20:44 Review of Systems ROS Statement: Those systems with pertinent positive or pertinent negative responses have been documented in the HPI. Review of Systems Constitutional: Denies fever, chills Eyes: Denies change in vision, Denies pain Ears, nose, mouth, throat: Denies headaches, Denies sore throat Cardiovascular: Denies chest pain. Denies palpitations. Positive syncope. Respiratory: Denies shortness of breath, Denies cough Gastrointestinal: Denies abdominal pain. Denies nausea, vomiting, diarrhea. Genitourinary: Denies hematuria, Denies infections Musculoskeletal: Denies pain, Denies swelling Integumentary: Denies rash Neurological: Denies headache, focal weakness, focal numbness. Confusion Psychiatric: Denies anxiety, Denies depression Hematologic/Lymphatic: Denies easy bleeding or bruising ROS Other: All systems not noted in ROS Statement are negative. Past Medical History Past Medical History: Atrial Fibrillation, Deep Vein Thrombosis (DVT), Hyperlipidemia, Hypertension, Osteoarthritis (OA), Prostate Disorder Additional Past Medical History / Comment(s): Aortic Stenosis; DVT leg 1999; enl. prostate History of Any Multi-Drug Resistant Organisms: None Reported Past Surgical History: Coronary Bypass/CABG, Heart Catheterization, Orthopedic Surgery, Prostate Surgery Additional Past Surgical History / Comment(s): Matthew. hip replacement; R Knee replaced; Prostate surg., cataracts removed Past Anesthesia/Blood Transfusion Reactions: No Reported Reaction Past Psychological History: No Psychological Hx Reported Smoking Status: Former smoker Past Alcohol Use History: None Reported Past Drug Use History: None Reported - Past Family History Mother Family Medical History: No Reported History General Exam - General Exam Comments Initial Comments: General: Awake, alert, No acute Distress HENT: Normocephalic. posterior scalp hematoma. No facial paralysis Eyes: PERRL. EOMI. No scleral icterus. No injected conjunctiva. Visual man intact. No nystagmus. Neck: Full ROM Chest/Lungs: Clear to auscultation bilaterally. Rales at lung bases bilaterally. Cardiac: Regular rate, rhythm. No murmurs or rubs. 2+ radial pulses bilaterally. Abdomen/GI: Soft, nontender, nondistended. No rebound, guarding, or rigidity. Musculoskeletal: No midline cervical, thoracic, or lumbar spine tenderness. Full ROM Skin: Warm, dry, intact. Midline chest incision clean dry and intact. Neurologic: A/Ox2 (wrong year) no pronator or lower extremity drift. Following commands. No ataxia. No aphasia. No dysarthria. NIHSS 0. Limitations: no limitations Course Vital Signs 06/16/18 06/16/18 06/16/18 20:45 21:00 21:15 Temperature 97.9 F Pulse Rate 81 74 81 Respiratory 18 18 18 Rate Blood Pressure 115/58 115/56 109/68 O2 Sat by Pulse 97 98 100 Oximetry 06/16/18 06/16/18 06/16/18 21:30 21:31 21:45 Temperature Pulse Rate 80 69 79 Respiratory 18 18 18 Rate Blood Pressure 106/62 106/62 102/57 O2 Sat by Pulse 100 98 99 Oximetry 06/16/18 06/16/18 06/16/18 22:00 22:15 22:30 Temperature Pulse Rate 75 67 72 Respiratory 18 18 18 Rate Blood Pressure 104/58 104/63 99/55 O2 Sat by Pulse 96 99 100 Oximetry 06/16/18 22:45 Temperature Pulse Rate 78 Respiratory 18 Rate Blood Pressure 102/56 O2 Sat by Pulse 99 Oximetry Medical Decision Making - Medical Decision Making 83-year-old male presenting after a syncopal event at home. Initial exam the patient is awake and alert he is confused and per nursing staff was having repetitive speech. Initially EMS stated that the patient was a fall with no LOC. He was placed in room 7, was exhibiting speech difficulty, and he had a syncopal event the patient became a code stroke. When I initially saw him he was awake and alert, and transported directly to CT. On return the patient was no longer having repetitive speech but was confused regarding a timeline of events. He was unable to tell me the year and family states this is not baseline for him. His EKG shows atrial fibrillation with a right bundle branch block at a rate of 74 bpm. 2200 Patient continuing to exhibit confusion and repetitive questioning. His CT head showed a subdural hygroma but was negative for bleed. CTA was negative. Workup did find bilateral pleural effusions, which are baseline for the patient. He is in no respiratory distress. At this time the patient requires transfer to [facility] for observation and possible neurosurgical intervention if he acutely worsens. I discussed with patient and family who are agreeable. The patient's CT cervical spine was negative. Unable to clear the c-spine at this time secondary to his confusion. We do not have a Garrett J or comparable device at this facility to place him in. I spoke with Dr. Gonzalez who is agreeable to transfer. Patient is currently stable for transfer to [facility]. - Lab Data Result diagrams: 06/16/18 21:00 06/16/18 21:00 Lab Results 06/16/18 06/16/18 06/16/18 Range/Units 21:00 21:00 21:00 WBC 7.7 (3.8-10.6) k/uL RBC 4.16 L (4.30-5.90) m/uL Hgb 11.0 L (13.0-17.5) gm/dL Hct 36.3 L (39.0-53.0) % MCV 87.4 (80.0-100.0) fL MCH 26.6 (25.0-35.0) pg MCHC 30.4 L (31.0-37.0) g/dL RDW 14.9 (11.5-15.5) % Plt Count 221 (150-450) k/uL Neutrophils % 73 % Lymphocytes % 17 % Monocytes % 7 % Eosinophils % 2 % Basophils % 0 % Neutrophils # 5.6 (1.3-7.7) k/uL Lymphocytes # 1.3 (1.0-4.8) k/uL Monocytes # 0.5 (0-1.0) k/uL Eosinophils # 0.1 (0-0.7) k/uL Basophils # 0.0 (0-0.2) k/uL Hypochromasia Marked Poikilocytosis Slight PT (9.0-12.0) sec INR (<1.2) Sodium 136 L (137-145) mmol/L Potassium 5.0 (3.5-5.1) mmol/L Chloride 102 (98-107) mmol/L Carbon Dioxide 23 (22-30) mmol/L Anion Gap 11 mmol/L BUN 30 H (9-20) mg/dL Creatinine 1.10 (0.66-1.25) mg/dL Est GFR (CKD-EPI)AfAm 72 (>60 ml/min/1.73 sqM) Est GFR (CKD-EPI)NonAf 62 (>60 ml/min/1.73 sqM) Glucose 133 H (74-99) mg/dL Calcium 8.9 (8.4-10.2) mg/dL Total Bilirubin 0.9 (0.2-1.3) mg/dL Conjugated Bilirubin 0.0 (0.0-0.3) mg/dL Unconjugated Bilirubin 0.5 (0.0-1.1) mg/dL Delta Bilirubin 0.4 H (0.0-0.2) mg/dL AST 28 (17-59) U/L ALT 33 (21-72) U/L Alkaline Phosphatase 84 (38-126) U/L Troponin I (0.000-0.034) ng/mL NT-Pro-B Natriuret Pep 2960 pg/mL Total Protein 6.3 (6.3-8.2) g/dL Albumin 3.6 (3.5-5.0) g/dL Lipase 203 (23-300) U/L 06/16/18 06/16/18 Range/Units 21:00 21:00 WBC (3.8-10.6) k/uL RBC (4.30-5.90) m/uL Hgb (13.0-17.5) gm/dL Hct (39.0-53.0) % MCV (80.0-100.0) fL MCH (25.0-35.0) pg MCHC (31.0-37.0) g/dL RDW (11.5-15.5) % Plt Count (150-450) k/uL Neutrophils % % Lymphocytes % % Monocytes % % Eosinophils % % Basophils % % Neutrophils # (1.3-7.7) k/uL Lymphocytes # (1.0-4.8) k/uL Monocytes # (0-1.0) k/uL Eosinophils # (0-0.7) k/uL Basophils # (0-0.2) k/uL Hypochromasia Poikilocytosis PT 36.1 H (9.0-12.0) sec INR 4.0 H (<1.2) Sodium (137-145) mmol/L Potassium (3.5-5.1) mmol/L Chloride (98-107) mmol/L Carbon Dioxide (22-30) mmol/L Anion Gap mmol/L BUN (9-20) mg/dL Creatinine (0.66-1.25) mg/dL Est GFR (CKD-EPI)AfAm (>60 ml/min/1.73 sqM) Est GFR (CKD-EPI)NonAf (>60 ml/min/1.73 sqM) Glucose (74-99) mg/dL Calcium (8.4-10.2) mg/dL Total Bilirubin (0.2-1.3) mg/dL Conjugated Bilirubin (0.0-0.3) mg/dL Unconjugated Bilirubin (0.0-1.1) mg/dL Delta Bilirubin (0.0-0.2) mg/dL AST (17-59) U/L ALT (21-72) U/L Alkaline Phosphatase (38-126) U/L Troponin I 0.020 (0.000-0.034) ng/mL NT-Pro-B Natriuret Pep pg/mL Total Protein (6.3-8.2) g/dL Albumin (3.5-5.0) g/dL Lipase (23-300) U/L Disposition Clinical Impression: Syncope, Anticoagulated on Coumadin, Confusion and disorientation, Pleural effusion Disposition: OTHER INSTITUTION NOT DEFINED Condition: Good Referrals: Victor Manuel Alarcon MD [Primary Care Provider] - 1-2 days - Out of Hospital Transfer - Req. Specs Out of Hospital Transfer - Requested Specifics: Other Emergency Center ([facility])
--- NOTE | 2018-06-16 22:42 | CT ---
EXAMINATION TYPE: CODE STROKE: CTA head neck DATE OF EXAM: 06/16/2018 HISTORY: Fall on coumadin with repetitive speech. COMPARISON: CT DLP: 409.07 mGycm. Automated Exposure Control for Dose Reduction was Utilized. TECHNIQUE: CTA scan of the neck is performed with IV Contrast, patient injected with 65 mL of Isovue 370, axial images are obtained, coronal and sagittal reformatted images are reviewed. Three-D recons tructed images are created on an independent workstation and reviewed. FINDINGS: There are bilateral pleural effusions. There is normal branching pattern of the great vessels on the aortic arch. Aorta arch has normal size. There is arterial flow in the common internal and external carotid arteries bilaterally. There is art erial flow in the vertebral arteries bilaterally. There is no evidence of vertebral or carotid artery dissection. Vertebral arteries are symmetric. There is minimal plaque at the left carotid artery bifurcation and lumen narrowing less than 10%. I see no narrowing on the right side. There is arterial flow in the vertebrobasilar artery system. There is arterial flow in the anterior m iddle and posterior cerebral arteries. There is no evidence of aneurysm or neovascularity. There is n ormal contrast opacification of the venous sinuses. I see no evidence of intracranial arterial stenos is. IMPRESSION: No evidence of hemodynamically significant stenosis. Angiogram appears fairly normal for age.
--- NOTE | 2018-06-16 23:09 | XR ---
EXAMINATION TYPE: XR chest 1V portable DATE OF EXAM: 06/16/2018 COMPARISON: 05/21/2018 HISTORY: Short of breath TECHNIQUE: Single frontal view of the chest is obtained. FINDINGS: Heart is enlarged. There is pulmonary vascular congestion. There is blunting of costophren ic angles. There are chest leads. There are sternal wires. IMPRESSION: Congestive heart failure with pleural effusions. Heart failure appears slightly worse th an old exam.
[2018-06-16 23:45] VITALS: BP 107/60; PULSE 84; RESP 17; TEMP 98.3
== END 2018-06-16 23:45 | disposition short-term general hospital (02) ==
LOC: EC 20:43
DX: J90 Pleural effusion, not elsewhere classified (principal); R55 Syncope and collapse; R41.0 Disorientation, unspecified; Z79.01 Long term (current) use of anticoagulants; S06.5X1A Traumatic subdural hemorrhage with loss of consciousness of 30 minutes or less, initial encounter; S00.03XA Contusion of scalp, initial encounter; Z95.1 Presence of aortocoronary bypass graft; I48.91 Unspecified atrial fibrillation; I45.10 Unspecified right bundle-branch block; N40.0 Benign prostatic hyperplasia without lower urinary tract symptoms; Z87.891 Personal history of nicotine dependence; Z79.899 Other long term (current) drug therapy; Z98.890 Other specified postprocedural states; W01.198A Fall on same level from slipping, tripping and stumbling with subsequent striking against other object, initial encounter; Y93.89 Activity, other specified
CPT/HCPCS: 36415; 70450; 70496; 70498; 71045; 72125; 80048; 80076; 83690; 83880; 84484; 85025; 85610; 93005; 99285

== ENCOUNTER 2019-06-20 11:04 | Emergency (ER) | payer MEDICARE ==
[2019-06-20 11:22] VITALS: TEMP 98
--- NOTE | 2019-06-20 12:01 | ED ---
Fall HPI - General Chief Complaint: Fall Stated Complaint: Fall Time Seen by Provider: 06/20/19 11:17 Source: patient, RN notes reviewed, old records reviewed Mode of arrival: ambulatory Limitations: no limitations, physical limitation (Mild difficulty with hearing) - History of Present Illness Initial Comments: This is an 84-year-old male the ER for evaluation presented today for evaluation regards to fall. Patient a fall from standing are today, patient is on [place]. Denies hitting his head denies hitting his neck, not complaining of head or Ne ck pain. No loss of consciousness, fall was mechanical in nature witnessed by his . Patient was difficult to get up off the ground where they were unable to get up patient and called EMS. Patient was afraid that he couldn't walk secondary to severe pain in his right leg and right ribs. Mild shortness of breath especially with a deep breath. No abdominal pain currently. 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 Witnessed: yes, by family, yes, by bystander Place Fall Occurred: home Loss of Consciousness: none Prolonged Down Time?: no Location: buttocks Location - Extremities: Right: Thigh, Knee Severity: moderate Severity scale (1-10): 4 Quality: aching Context: tripped/slipped Associated Symptoms: denies - Related Data Home Medications Medication Instructions Recorded Confirmed Finasteride [Proscar] 5 mg PO HS 04/08/18 06/20/19 Apixaban [Eliquis] 5 mg PO BID 06/20/19 06/20/19 Furosemide [Lasix] 40 mg PO DAILY 06/20/19 06/20/19 Multivitamins, Thera [Multivitamin 1 tab PO DAILY 06/20/19 06/20/19 (formulary)] Potassium Chloride ER [K-Dur 10] 10 meq PO DAILY 06/20/19 06/20/19 Spironolactone [Aldactone] 25 mg PO DAILY 06/20/19 06/20/19 Previous Rx's Medication Instructions Recorded Atorvastatin [Lipitor] 40 mg PO DAILY tab 05/21/18 Allergies Allergy/AdvReac Type Severity Reaction Status Date / Time No Known Allergies Allergy Verified 06/20/19 11:22 Review of Systems ROS Statement: Those systems with pertinent positive or pertinent negative responses have been documented in the HPI. ROS Other: All systems not noted in ROS Statement are negative. Past Medical History Past Medical History: Atrial Fibrillation, Deep Vein Thrombosis (DVT), Hyperlipidemia, Hypertension, Osteoarthritis (OA), Prostate Disorder Additional Past Medical History / Comment(s): Aortic Stenosis; DVT leg 2000; enl. prostate History of Any Multi-Drug Resistant Organisms: None Reported Past Surgical History: Coronary Bypass/CABG, Heart Catheterization, Orthopedic Surgery, Prostate Surgery Additional Past Surgical History / Comment(s): Matthew. hip replacement; R Knee replaced; Prostate surg., cataracts removed Past Anesthesia/Blood Transfusion Reactions: No Reported Reaction Past Psychological History: No Psychological Hx Reported Smoking Status: Former smoker Past Alcohol Use History: None Reported Past Drug Use History: None Reported - Past Family History Mother Family Medical History: No Reported History General Exam - General Exam Comments Initial Comments: GCS of 15 Airways patent Trach is midline breath sounds are equal bilaterally Limitations: physical limitation General appearance: alert, in no apparent distress Head exam: Present: atraumatic, normocephalic, normal inspection Eye exam: Present: normal appearance, EOMI. Absent: scleral icterus, conjunctival injection, periorbital swelling ENT exam: Present: normal exam, mucous membranes moist Neck exam: Present: normal inspection. Absent: tenderness, meningismus, lymphadenopathy Respiratory exam: Present: normal lung sounds bilaterally, other (Patient does have right-sided chest wall tenderness). Absent: respiratory distress, wheezes, rales, rhonchi, stridor Cardiovascular Exam: Present: regular rate, normal rhythm, normal heart sounds. Absent: systolic murmur, diastolic murmur, rubs, gallop, clicks GI/Abdominal exam: Present: soft, normal bowel sounds. Absent: distended, tenderness, guarding, rebound, rigid Extremities exam: Present: normal inspection, full ROM, normal capillary refill, other (Right-sided hip pain with range of motion). Absent: tenderness, pedal edema, joint swelling, calf tenderness Back exam: Present: normal inspection Neurological exam: Present: alert, oriented X3, CN II-XII intact Psychiatric exam: Present: normal affect, normal mood Skin exam: Present: warm, dry, intact, normal color. Absent: rash Course Vital Signs 06/20/19 06/20/19 11:16 13:41 Temperature 98.0 F Pulse Rate 68 67 Respiratory 18 20 Rate Blood Pressure 128/75 151/85 O2 Sat by Pulse 98 98 Oximetry - Reevaluation(s) Reevaluation #1: 06/20/19 12:01 Medical records reviewed Reevaluation #2: 06/20/19 13:22 Patient still not requiring anything for pain, no shortness of breath Reevaluation #3: 06/20/19 14:11 We will give patient out of bed, he is able to ambulate without difficulty some tenderness in the right hip but no obstruction his walking ability Reevaluation #4: 06/20/19 14:11 She given incentive spirometry and pain control for home Medical Decision Making - Medical Decision Making 81 female the ER status post fall. Patient has multiple right-sided rib fractures 7 through 11, one place rib fracture, no shortness of breath no evidence of lung contusion or pneumothorax. Patient has no other injury noted on x-rays or imaging. Patient can be discharged - Radiology Data Radiology results: report reviewed (CT brain C-spine chest x-rayHip negative for traumatic injury), image reviewed Disposition Clinical Impression: Fall, Multiple fractures of ribs, right side, initial encounter for closed fracture Disposition: HOME SELF-CARE Condition: Good Instructions (If sedation given, give patient instructions): Rib Fracture (ED), Fall Prevention for Older Adults (ED) Is patient prescribed a controlled substance at d/c from ED?: No Referrals: Victor Manuel Alarcon MD [Primary Care Provider] - 1-2 days
--- NOTE | 2019-06-20 12:51 | CT ---
EXAMINATION TYPE: CT brain ruth alicea DATE OF EXAM: 06/20/2019 COMPARISON: 06/16/2018 HISTORY: Fall CT DLP: 1372.2 mGycm, Automated exposure control for dose reduction was used. CONTRAST: Patient injected with 0 mL of Isovue 300. CT of the brain is performed utilizing 3 mm thick sections through the posterior fossa and 3 mm thick sections through the remaining calvarium. Study is performed within 24 hours of arrival to the hospital. No abnormal hyperdensity is present to suggest an acute intracranial hemorrhage. No mass lesion is evident. No acute infarcts are evident. Ventricles and sulci are appropriate for the patient age. Paranasal sinuses and mastoid air cells within the [id number] are clear. IMPRESSIONS: 1. No acute intracranial process. CT cervical spine. COMPARISON: None CT of the cervical spine is performed in the axial plane at 2 mm thick sections. Reconstructed image s in the coronal, and sagittal plane are reviewed on the computer. No acute fractures are evident. Vertebral body alignment is normal. There is loss of disc height at C2-3, C4-5 and to lesser degree C5-6 C6-7. Vertebral body heights are preserved. No spinal canal stenosis is evident. Facet hypertrophy and uncovertebral joint hypertrophy on the left at C3-4 has severe left foraminal s tenosis. Moderate bilateral foraminal narrowing is present C4-5. IMPRESSIONS: 1. Degenerative disc changes discussed above. 2. Facet hypertrophy and uncovertebral joint hypertrophy causing severe left foraminal stenosis C3-4 but also present bilaterally C4-5.
--- NOTE | 2019-06-20 12:57 | XR ---
EXAMINATION TYPE: XR knee complete RT DATE OF EXAM: 06/20/2019 COMPARISON: None HISTORY: Fall, pain TECHNIQUE: Three-view right knee FINDINGS: Tibial and femoral components of in place for knee prosthesis no acute fractures or disloca tions are evident. No joint effusion is evident. IMPRESSION: 1. Normal post right knee prosthesis
--- NOTE | 2019-06-20 13:01 | XR ---
EXAMINATION TYPE: XR Hip RT and AP Pelvis DATE OF EXAM: 06/20/2019 COMPARISON: None HISTORY: Fall, pain TECHNIQUE: AP pelvis and 2 views right hip FINDINGS: Bilateral femoral prostheses are present. No acute fractures are evident. Sacroiliac joints have moderate degenerative change. Symphysis pubis is normal. Right hip: No acute fractures are evident. IMPRESSION: 1. No acute fractures AP pelvis and right hip. 2. Right hip prosthesis remains in position
--- NOTE | 2019-06-20 13:17 | XR ---
Chest x-ray and right RIBS HISTORY: Trauma and pain Frontal view of the chest and 4 views of the right ribs submitted and correlated prior chest x-ray Patient is post median sternotomy and atrial appendage clipping, aortic valve replacement. The heart remains enlarged. There is interval improved aeration at the lung bases. There is no evident pneumoth orax. High riding shoulders may be indicative of chronic rotator cuff tears. Pulmonary vascularity an d cecile are within normal limits. Arthropathy noted at the acromioclavicular joints. There are rib fra ctures at the anterior right 10th rib, the posterior right ninth, eighth, seventh, sixth ribs, 11th r ib. Inferior vena cava filter is present. Possible calcified gallstone right upper quadrant. Degenerative disc changes in the visualized spine. IMPRESSION: Multiple right-sided rib fractures and additional findings above.
[2019-06-20 13:42] VITALS: BP 151/85; PULSE 67; RESP 20
[2019-06-20] MEDS ORDERED: ACET/COD 300 MG/30 MG STARTER PACK 6 TAB BTL PO STA (14:12)
== END 2019-06-20 14:24 | disposition home or self-care (01) ==
LOC: EC 11:04
DX: S22.41XA Multiple fractures of ribs, right side, initial encounter for closed fracture (principal); M25.551 Pain in right hip; M79.604 Pain in right leg; I48.91 Unspecified atrial fibrillation; I10 Essential (primary) hypertension; N40.0 Benign prostatic hyperplasia without lower urinary tract symptoms; M19.90 Unspecified osteoarthritis, unspecified site; Z87.891 Personal history of nicotine dependence; Z79.01 Long term (current) use of anticoagulants; Z79.899 Other long term (current) drug therapy; Z86.718 Personal history of other venous thrombosis and embolism; Z95.1 Presence of aortocoronary bypass graft; Z96.643 Presence of artificial hip joint, bilateral; Z96.651 Presence of right artificial knee joint; Z95.818 Presence of other cardiac implants and grafts; W01.0XXA Fall on same level from slipping, tripping and stumbling without subsequent striking against object, initial encounter; Y92.009 Unspecified place in unspecified non-institutional (private) residence as the place of occurrence of the external cause
CPT/HCPCS: 70450; 72125; 73502; 99284

== ENCOUNTER → 2019-07-03 | Day surgery (SDC) | payer MEDICARE ==
[2019-07-01 11:08] VITALS: BMI 27.0
[~2019-07-03] MED LIST changes: -ALBUMIN HUMAN 25% 50 ML IV ONE; -ALBUMIN HUMAN 5% 500 ML IVPB ONE; -ASPIRIN 325 MG TAB PO ONE; -ATORVASTATIN 10 MG TAB PO ONE; -CALCIUM CHLORIDE 100 MG/ML 10 ML SYRINGE IV ONE; -CHLORHEXIDINE GLUCONATE 15 ML CUP MUCOUS MEM ONE; -CLEVIDIPINE BUTYRATE 25 MG in EMPTY BAG 1 BAG IV ONE; -DEXTROSE 5% IN WATER 1,000 ML with POTASSIUM CHLORIDE 110 MEQ, MAGNESIUM SULFATE 16 MEQ... IV ONE; -DEXTROSE 5% IN WATER 1,000 ML with POTASSIUM CHLORIDE 25 MEQ, SODIUM CHLORIDE 2.5MEQ/ML... IV ONE; -HEPARIN SODIUM 1,000 UN/ML (10ML VL) IV ONE; -HEPARIN SODIUM,PORCINE 5,000 UNIT in SODIUM CHLORIDE 0.9% 500 ML IV ONE; -INSULIN REGULAR 100 UNIT in SODIUM CHLORIDE 0.9% 100 ML IV ONE; -LACTATED RINGERS 1,000 ML IV ONE; +LIDOCAINE 1% INJ 10MG/ML (20 ML MDV) ONE; +LIDOCAINE 1% INJ 10MG/ML (20 ML MDV) SQ ONE; -MAGNESIUM SULFATE MG 500 MG/ML VIAL IV ONE; -MANNITOL 25% 12.5 GM/50 ML VIAL IV ONE; -METOPROLOL TARTRATE 12.5 MG TAB PO ONE; -MUPIROCIN 2% OINT 22 GM TUBE NASAL ONE; -NITROGLYCERIN-D5W PMX 25 MG/250 ML BTL IV ONE; -NITROGLYCERIN-D5W PMX 50 MG in DEXTROSE/WATER 1 250ML.BAG IV ONE; -NOREPINEPHRIN 4 MG-0.9% NS PMX 4 MG/250 ML ML IV ONE; -PHENYLEPHRINE 40 MG in SODIUM CHLORIDE 0.9% 250 ML IV ONE; -PHENYLEPHRINE-0.9% NACL SYG 1 MG/10 ML SYRINGE IV ONE; -PROPOFOL 1,000 MG/100 ML VIAL IV ONE; -PROTAMINE SULFATE 10 MG/ML 25 ML VIAL IV ONE; -PROTAMINE SULFATE 250 MG in EMPTY BAG 1 BAG IV ONE; -SODIUM BICARB 8.4% 50 ML SYR (1 MEQ/ML) IV ONE; +SODIUM CHLORIDE 0.9% 1,000 ML IV SCH; -TRANEXAMIC ACID 2,000 MG in SODIUM CHLORIDE 0.9% 180 ML IV ONE; -ceFAZolin 1,000 MG in SODIUM CHLORIDE 0.9% IRRIGATIO 1,000 ML IRRIGATION ONE; +ceFAZolin 1,000 MG in SODIUM CHLORIDE 0.9% IRRIGATIO 250 ML IRRIGATION ONE; -ceFAZolin 2,000 MG in SODIUM CHLORIDE 0.9% 30 ML IVPB ONE; -ceFAZolin IN SWFI 2 GM/20 ML SYRINGE IVP ONE
[2019-07-03 10:32] VITALS: RESP 16; TEMP 98.2
[2019-07-03 10:47] LABS: African American GFR (CKD) >90 (>60 ml/min/1.73 sqM); Anion Gap 11 mmol/L; Blood Urea Nitrogen 26 mg/dL (9-20); Calcium 9.6 mg/dL (8.4-10.2); Carbon Dioxide 26 mmol/L (22-30); Chloride 101 mmol/L (98-107); Glucose 108 mg/dL (74-99); Potassium 4.6 mmol/L (3.5-5.1); Sodium 138 mmol/L (137-145)
--- NOTE | 2019-07-03 12:56 | P.PCN ---
Preoperative Diagnosis: Loop monitor implant Primary physicians: Dr. Alarcon [employer] Accountant: Dr. Banks Operators: Dr. Banks and Angela Guardado PA-C Indication: Permanent atrial fibrillation, bundle branch block, bradycardia, and dizzy spells, looking for AV block Patient was brought to the EP lab in a fasting state. Written informed consent was obtained prior to the procedure. The left pectoral area was prepped and draped per protocol. Intravenous antibiotic was administered preoperatively. A subcutaneous Loop monitor was implanted successfully and the wound was closed per protocol. The device was programmed to detect significant jose juan- arrhythmic and tachy-arrhythmic events, per protocol. Device and programming details: Programmed syncope protocol Patient underwent EP procedure under conscious sedation/moderate sedation under Dr. Banks's supervision, monitoring of the level of consciousness and physiologic parameters including but not limited to vital signs and oxygenation. Patient tolerated the procedure well without any acute complications. Start time: 1235 Stop time: 1252
--- NOTE | 2019-07-03 13:58 | US ---
EXAMINATION TYPE: US venous doppler duplex LE RT DATE OF EXAM: 07/03/2019 1:40 PM COMPARISON: NONE CLINICAL HISTORY: rule out dvt. right leg is swollen and discolored. SIDE PERFORMED: Right TECHNIQUE: The lower extremity deep venous system is examined utilizing real time linear array sonog maico with graded compression, doppler sonography and color-flow sonography. VESSELS IMAGED: External Iliac Vein (EIV) Common Femoral Vein Deep Femoral Vein Greater Saphenous Vein * Femoral Vein Popliteal Vein Right Leg: Negative for DVT IMPRESSION: 1. No diagnostic evidence of DVT as visualized.
[2019-07-03 19:18] VITALS: PULSE 59
[2019-07-03 19:25] VITALS: BP 114/53
== END | disposition home or self-care (01) ==
LOC: CATHEP 09:47
PROVIDERS: ATTEND Internal Medicine Clinical Cardiac Electrophysiology
DX: I48.20 Chronic atrial fibrillation, unspecified (principal); I45.4 Nonspecific intraventricular block; I25.10 Atherosclerotic heart disease of native coronary artery without angina pectoris; I11.0 Hypertensive heart disease with heart failure; I50.32 Chronic diastolic (congestive) heart failure; Z72.0 Tobacco use; Z95.2 Presence of prosthetic heart valve; I49.5 Sick sinus syndrome; Z86.718 Personal history of other venous thrombosis and embolism; Z79.01 Long term (current) use of anticoagulants; Z79.899 Other long term (current) drug therapy
CPT/HCPCS: 33285; 80048; 83735; 93971; C1764; J0690; J2001

== ENCOUNTER 2019-12-02 08:22 | Day surgery (SDC) | payer MEDICARE ==
[2019-12-01 08:42] VITALS: BMI 27.1
[2019-12-02] MEDS ORDERED: ceFAZolin 1,000 MG in SODIUM CHLORIDE 0.9% IRRIGATIO 250 ML IRRIGATION ONE (08:30)
[2019-12-02] MEDS ORDERED: SODIUM CHLORIDE 0.9% 1,000 ML IV SCH (08:30)
[2019-12-02] MEDS: SODIUM CHLORIDE 0.9% 1,000 ML IV SCH (08:56)
[2019-12-02] MEDS ORDERED: fentaNYL (PF) 50 MCG/ML 2 ML AMP ONE (11:26)
[2019-12-02] MEDS ORDERED: MIDAZOLAM 2 MG/2 ML VIAL ONE (11:26)
[2019-12-02] MEDS ORDERED: LIDOCAINE 1% INJ 10MG/ML (20 ML MDV) ONE (12:00)
[2019-12-02] MEDS ORDERED: SODIUM CHLORIDE 0.9% 500 ML 500 ML IV ONE (12:11)
[2019-12-02] MEDS ORDERED: LIDOCAINE 1% INJ 10MG/ML (20 ML MDV) SQ ONE (12:38)
[2019-12-02] MEDS ORDERED: ACETAMINOPHEN TAB 325 MG TAB PO PRN (13:42)
[2019-12-02] MEDS ORDERED: ACETAMINOPHEN IV (For NPO) 1,000 MG in EMPTY BAG 1 BAG IVPB ONE (16:30)
[2019-12-02] MEDS ORDERED: FUROSEMIDE 20 MG TAB PO SCH (17:30)
[2019-12-02] MEDS: APIXABAN 5 MG TAB PO SCH (20:17)
[2019-12-02] MEDS ORDERED: ATORVASTATIN 40 MG TAB PO SCH (21:00)
[2019-12-03] MEDS: SODIUM CHLORIDE 0.9% 1,000 ML IV SCH (04:35)
--- NOTE | 2019-12-03 06:36 | CE ---
CARDIAC ELECTROPHYSIOLOGY REPORT Mr. Weeks is an 84-year-old male patient with severe bradycardia, status post AVR, who in symptomatic bradycardia with dizziness with underlying permanent atrial fibrillation. He underwent permanent pacemaker implantation with biventricular pacemaker to avoid 100% RV pacing. The patient is brought to the EP lab in a fasting state. Written informed consent was obtained prior to the procedure. The left shoulder area was prepped and draped as per protocol and 1% lidocaine was used for local anesthesia. IV antibiotics were administered and a 4 cm incision was made parallel to the deltopectoral groove, about 1.5 cm medial to it the incision was carried down to the level of the . Venous access was obtained. The leads were placed in the right heart. The RV lead was a passive Medtronic lead model #4074, 58 cm in length and serial #[id number]. This was positioned in the RV apex. R-waves 6.6 mV, pacing impedance 1231 ohms, pacing threshold 0.5 V at 0.5 milliseconds. Ten volt test was negative. The His bundle lead was placed in the His bundle area. This was a Medtronic model #[id number], 69 cm in length and serial #[id number] . This was positioned in the His bundle area. Pacing impedance was 458 ohms, pacing threshold 1.1 V at 1 millisecond. Non- selective almost selective capture was noted down to a threshold of 1.3 mV when there was RV capture noted. Function was excellent. Both leads were secured to the underlying pectoralis fascia using 2 nonabsorbable sutures. Pocket was irrigated with antibiotic solution. Leads were connected to the generator (Peg COOL ROOFING INSTALLER P, model #[id number], serial #[id number]) Leads and the generator were then placed in subfascial pocket. The wound was closed in 3 layers and dressed per protocol. RESULT: Successful implantation of biventricular pacemaker with His bundle pacing and was programmed to VVIR 60 to 130 ppm with preferential His bundle pacing to avoid RV pacing. Backup RV pacing programmed. MMODL / IJN: [id number] /
--- NOTE | 2019-12-03 06:36 | LTR ---
December 02, 2019 Re: Danilo Desi Dear Dr. Alarcon: I had the pleasure of seeing Danilo Weeks in electrophysiology followup. Danilo underwent a biventricular pacemaker with His bundle pacing to avoid RV pacing for management of significant bradycardia associated with dizzy spells. He will continue on his current medications unchanged as well as antibiotics and we will see him again in the office in about 5 days in the device clinic. Thank you for entrusting us in the care of your patient. Warm regards. Sincerely, MD FIDEL Joseph / MARK: [id number] /
[2019-12-03 07:42] VITALS: BP 115/72; PULSE 60; RESP 16; TEMP 97.7
--- NOTE | 2019-12-03 08:10 | XR ---
EXAMINATION TYPE: XR chest 2V DATE OF EXAM: 12/03/2019 COMPARISON: 06/20/2019 TECHNIQUE: PA and lateral views submitted. HISTORY: Lead placement check FINDINGS: The lungs are clear and there is no pneumothorax, pleural effusion, or focal pneumonia. Heart is en larged and there are multiple rib deformities. Postoperative changes are seen and there is a multilea d pacemaker. Biapical pleural thickening. Hyperinflation suggests COPD. Hypertrophic and degenerative change of the spine. Proximal lead overlies the right atrium and the distal lead overlies the right ventricle. Arthropathy of the shoulders. IMPRESSION: 1. No postprocedural complication. 2. Cardiomegaly and changes of COPD.
[2019-12-03] MEDS: APIXABAN 5 MG TAB PO SCH (08:34)
[2019-12-03] MEDS ORDERED: FUROSEMIDE 40 MG TAB PO SCH (09:00)
[2019-12-03] MEDS ORDERED: FINASTERIDE 5 MG TAB PO SCH (09:00)
[2019-12-03] MEDS ORDERED: SPIRONOLACTONE 25 MG TAB PO SCH (09:00)
--- NOTE | 2019-12-03 10:31 | P.DS ---
Providers Attending physician: Darío Banks Primary care physician: [facility] Course: This is a pleasant 84-year-old male with severe bradycardia status post aortic valve replacement and permanent atrial fibrillation. He was brought in electively to undergo implantation of biventricular pacemaker with His bundle pacing. He tolerated the procedure well without any complications. He is seen and examined sitting up resting comfortably in bed on the observation unit. Chest x-ray reveals no postprocedural complications with underlying COPD and cardiomegaly. 115/72 with a heart rate 60 afebrile and maintaining oxygen saturation on room air. Currently maintained on Eliquis 5 mg twice a day, Aldactone 25 mg daily, atorvastatin 40 mg daily and Lasix 40 mg the morning and 20 mg in the evening. He denies symptoms of chest pain, shortness of breath, dizziness or palpitations. Insertion site is clean, dry and intact with a dressing in place. No evidence of erythema, swelling or tenderness at the site. Sling is in place and pacemaker instructions have been provided. He has a follow-up appointment in the office with Dr. Kaur in December 09 at 3 PM. GENERAL: Well-appearing, well-nourished and in no acute distress. NECK: Supple without JVD or thyromegaly. LUNGS: Breath sounds clear to auscultation bilaterally. Respiration equal and unlabored. No wheezes, rales or rhonchi. HEART: Regular rate and rhythm without murmurs, rubs or gallops. S1 and S2 h eard. EXTREMITIES: Normal range of motion, no edema. No clubbing or cyanosis. Peripheral pulses intact. ASSESSMENT Permanent atrial fibrillation Severe symptomatic bradycardia Valvular heart disease status post aortic valve replacement PLAN Stable for discharge, resume home medications, no changes. Follow-up in the office with Dr. Kaur December 09 at [address] and dressing to stay in place until follow up appointment. Nurse Practitioner note has been reviewed, I agree with a documented findings and plan of care. Patient was seen and examined. Plan - Discharge Summary Discharge Rx Participant: Yes New Discharge Prescriptions: Continue Finasteride [Proscar] 5 mg PO DAILY Spironolactone [Aldactone] 25 mg PO DAILY Potassium Chloride ER [K-Dur 10] 10 meq PO BID Multivitamins, Thera [Multivitamin (formulary)] 1 tab PO DAILY Furosemide [Lasix] 40 mg PO DAILY Apixaban [Eliquis] 5 mg PO BID Furosemide [Lasix] 20 mg PO 1730 Atorvastatin [Lipitor] 40 mg PO HS Discharge Medication List Finasteride [Proscar] 5 mg PO DAILY 04/08/18 [History] Apixaban [Eliquis] 5 mg PO BID 06/20/19 [History] Furosemide [Lasix] 40 mg PO DAILY 06/20/19 [History] Multivitamins, Thera [Multivitamin (formulary)] 1 tab PO DAILY 06/20/19 [History] Potassium Chloride ER [K-Dur 10] 10 meq PO BID 06/20/19 [History] Spironolactone [Aldactone] 25 mg PO DAILY 06/20/19 [History] Atorvastatin [Lipitor] 40 mg PO HS 07/01/19 [History] Furosemide [Lasix] 20 mg PO 1730 07/01/19 [History] Follow up Appointment(s)/Referral(s): Darío Banks MD [STAFF PHYSICIAN] - 12/10/19 3:00 pm (Follow-up in the Device Clinic on December 09 at 3:00pm Follow up in [address] Banks as previously scheduled on March 31 at 2:00pm) Patient Instructions/Handouts: Pacemaker (GEN) Activity/Diet/Wound Care/Special Instructions: PATIENT EDUCATION MATERIAL Instructions following a heart rhythm device implant. 1. Keep dressing DRY for 5 DAYS. You may cover the area with Saran or Cling Wrap, prior to a shower. 2. The dressing will be removed in the Device Clinic at [facility]. Absorbable sutures were used to close the wound. 3. Avoid raising the left arm above the shoulder level. 4 week restriction 4. Avoid arm movements, like backscratching, rubbing the head, or pulling on a cord. 4 weeks restriction 5. Gentle range of motion movements of the shoulder, closest to the incision should be performed to avoid a frozen shoulder. (Pendulum exercises of the shoulder) 6. The opposite arm may be used freely. 7. Avoid driving for 7 days. 8. Avoid activities such as golfing, swimming, weed whacking, lifting more than 10 pounds weight, bowling, gymnastics and weight training/lifting. (6 weeks restriction) 9. Activities such as wood chopping with an axe, pull-ups in the gymnasium, power lifting, arc-welding, being close to home induction cooktops will always be a problem. 10. Arm sling is only a reminder not to raise the arm above the head. You do not need to keep the arm completely immobilized. Your free to move the arm and use it and for normal activities. In case of any problems, please call [facility] [place], @ [phone], Attention: Device Clinic Device clinic follow-up in 5 days Follow-up with primary rfid engineer in 2-3 months Discharge Disposition: HOME SELF-CARE
== END 2019-12-03 12:47 | disposition home or self-care (01) ==
LOC: CATHEP 08:22 → 1SOBS 14:10 → CATHEP 12-03 12:47
PROVIDERS: ATTEND Internal Medicine Clinical Cardiac Electrophysiology
DX: R00.1 Bradycardia, unspecified (principal); I48.21 Permanent atrial fibrillation; Z95.2 Presence of prosthetic heart valve; I10 Essential (primary) hypertension; J44.9 Chronic obstructive pulmonary disease, unspecified; I51.7 Cardiomegaly; Z79.01 Long term (current) use of anticoagulants; Z79.899 Other long term (current) drug therapy; E78.5 Hyperlipidemia, unspecified; Z96.643 Presence of artificial hip joint, bilateral; Z96.659 Presence of unspecified artificial knee joint; Z90.79 Acquired absence of other genital organ(s)
CPT/HCPCS: 33225; 33208; 71046; C1769 ×3; C1892; C1898; C2621; S0138; J2250; J0690 ×2; J2001; J3010

== ENCOUNTER 2019-12-25 06:28 | Day surgery (SDC) | payer MEDICARE ==
[2019-12-25] MEDS ORDERED: ceFAZolin 1,000 MG in SODIUM CHLORIDE 0.9% IRRIGATIO 250 ML IRRIGATION STA (06:29)
[2019-12-25] MEDS ORDERED: SODIUM CHLORIDE 0.9% 500 ML 500 ML IV ONE (06:55)
[2019-12-25 07:08] VITALS: BP 145/73; PULSE 78; RESP 16; TEMP 97.6
[2019-12-25 07:17] LABS: Basophils % (A) 0 %; Eosinophils # (A) 0.1 k/uL (0-0.7); Eosinophils % (A) 1 %; HCT 43.4 % (39.0-53.0); HGB 14.3 gm/dL (13.0-17.5); Lymphocytes # (A) 1.3 k/uL (1.0-4.8); Lymphocytes % (A) 16 %; MCH 29.4 pg (25.0-35.0); MCHC 32.9 g/dL (31.0-37.0); MCV 89.3 fL (80.0-100.0); Mean Platelet Volume 7.9; Monocytes # (A) 0.4 k/uL (0-1.0); Monocytes % (A) 5 %; Neutrophils # (A) 6.1 k/uL (1.3-7.7); Neutrophils % (A) 76 %; Platelet Count 205 k/uL (150-450); RBC 4.86 m/uL (4.30-5.90); RDW 14.5 % (11.5-15.5)
[2019-12-25 07:24] LABS: Calcium 9.7 mg/dL (8.4-10.2); Potassium 4.4 mmol/L (3.5-5.1)
[2019-12-25] MEDS ORDERED: LIDOCAINE 1% INJ 10MG/ML (20 ML MDV) SQ ONE (07:45)
--- NOTE | 2019-12-25 08:05 | P.PCN ---
Preoperative Diagnosis: Diagnosis Minor wound dehiscence with leakage of Dr. red blood from the pacemaker incision site Procedure Left pectoral area was prepped and draped as per protocol. IV antibiotics administered silk sutures applied to the lateral aspect of the wound to bring the edges closer Thereafter despite manual pressure, no blood could be expressed from that site that was previously oozing Patient underwent EP procedure under conscious sedation/moderate sedation, monitoring of the level of consciousness and physiologic parameters including but not limited to vital signs and oxygenation. Patient tolerated the procedure well without any acute complications. Start time: 143 Stop time: 732
== END 2019-12-25 08:14 | disposition home or self-care (01) ==
LOC: CATHEP 06:28
PROVIDERS: ATTEND Internal Medicine Clinical Cardiac Electrophysiology
DX: T81.31XA Disruption of external operation (surgical) wound, not elsewhere classified, initial encounter (principal); Z95.0 Presence of cardiac pacemaker; Z95.4 Presence of other heart-valve replacement
CPT/HCPCS: 12001; 80048; 85025; J0690; J2001

== ENCOUNTER → 2024-12-31 | Outpatient (CLI) | payer MEDICARE ==
[2024-12-31 13:03] LABS: African American GFR (CKD) 78 (>60 ml/min/1.73 sqM); Blood Urea Nitrogen 32 mg/dL (9-20); Non-African American GFR(CKD) 68 (>60 ml/min/1.73 sqM)
--- NOTE | 2024-12-31 15:18 | CT ---
CT urogram HISTORY: Gross hematuria. COMPARISON: None. TECHNIQUE: Multiple axial images are obtained before and after the uneventful administration nonionic IV contrast. Postcontrast delayed images were also obtained. FINDINGS: There is a large right pleural effusion. There is a calcified granuloma in the left base. There is mi ld bibasilar atelectasis. There is marked cardiomegaly. There is calcified aortic valve. There is a 2 -lead cardiac pacemaker On the pre-IV contrast images, there are no renal calcifications or ureteral calcifications. Multipl e large gallstones. There are no focal masses within the liver, pancreas, spleen or adrenal glands and there is no organo megaly. There is a 9 mm hyperdense exophytic cyst of the mid right kidney. There are no renal calcifications or hydronephrosis. The caliber of the abdominal aorta is normal. There is an IVC filter in place. The re is marked prostatic hypertrophy. Evaluation of the urinary bladder is limited due to the metallic artifact in the bilateral hip prostheses.. There is mass effect on the inferior aspect of the urinary bladder secondary to prostatic enlargement but intraluminal bladder masses cannot be excluded given the limitations from some streak artifact. The bowel loops are normal in caliber and there is no dilatation or obstruction. No inflammatory leigh ges are identified in the bowel wall or mesentery there is moderate diverticulosis of colon without C T evidence of acute diverticulitis. There is no free intraperitoneal air or fluid There is marked prostatic hypertrophy. Evaluation of pelvis is limited due to metallic artifact from bilateral hip prostheses as described above In the subcutaneous tissues of the right lateral pelvis there is a bilobed 6.1 x 2.6 cm mass. This is indeterminate and neoplasm is not excluded. Tissue sampling is recommended. There is enlargement of the left iliopsoas musculature without discrete mass. Findings raise the ques tion of retroperitoneal hemorrhage. IMPRESSION: 1. Large right pleural effusion and bibasilar atelectasis. 2. Cholelithiasis. 3. 9 mm exophytic hyperdense cyst of the right kidney but no renal calcification, hydronephrosis or f illing defects within the renal collecting systems. 4. Limited evaluation of the urinary bladder due to metallic artifact from the bilateral hip prosthes es. There is moderate to marked prostatic hypertrophy with mass effect on the bladder base. 5. 6.1 cm x 2.6 cm bilobed mass in the subcutaneous tissues of the right lateral pelvis. Neoplasm is not excluded and evaluation with direct tissue sampling is recommended. 6. Enlargement of the right iliopsoas musculature raising the question of retroperitoneal hemorrhage. No discrete mass is seen 7. Bilateral hip prostheses limiting the evaluation of the pelvis and streak artifact. [facility], , 12/31/2024 3:15 PM
== END | disposition home or self-care (01) ==
LOC: RADCTMAIN 12:12
PROVIDERS: ATTEND Urology
DX: N28.1 Cyst of kidney, acquired (principal); K80.20 Calculus of gallbladder without cholecystitis without obstruction; J90 Pleural effusion, not elsewhere classified; J98.11 Atelectasis; N40.0 Benign prostatic hyperplasia without lower urinary tract symptoms; R19.09 Other intra-abdominal and pelvic swelling, mass and lump; Z96.643 Presence of artificial hip joint, bilateral
CPT/HCPCS: 82565; 84520; 74178; 36415; 74400; Q9967